=== PATIENT | female | born 1945 | race Caucasian/White ===

== ENCOUNTER → 2020-06-09 14:33 | Outpatient (BNVA) | payer MEDICARE, SELFPAY | PROVIDERS: PCP Internal Medicine Geriatric Medicine; Visit Provider Urology | DX: N39.41 Urge incontinence (principal) | CPT/HCPCS: Q3014 ==

== ENCOUNTER → 2020-06-11 09:31 | Outpatient (BNVA) | payer MEDICARE, SELFPAY | PROVIDERS: PCP Internal Medicine Geriatric Medicine; Visit Provider Internal Medicine | DX: R07.89 Other chest pain (principal); R06.02 Shortness of breath; E11.8 Type 2 diabetes mellitus with unspecified complications; E78.5 Hyperlipidemia, unspecified; I10 Essential (primary) hypertension | CPT/HCPCS: 99212 ==

== ENCOUNTER → 2020-11-02 13:59 | Outpatient (BNVA) | payer MEDICARE, SELFPAY | PROVIDERS: PCP Internal Medicine Geriatric Medicine; Visit Provider Internal Medicine | DX: R07.89 Other chest pain (principal); R06.02 Shortness of breath; E11.8 Type 2 diabetes mellitus with unspecified complications; I10 Essential (primary) hypertension; E78.5 Hyperlipidemia, unspecified | CPT/HCPCS: 93005; 99212 ==

== ENCOUNTER → 2021-01-13 13:44 | Outpatient (BNVA) | payer MEDICARE, SELFPAY | PROVIDERS: PCP Internal Medicine Geriatric Medicine; Referring Provider Internal Medicine Geriatric Medicine; Visit Provider Nurse Practitioner Family | DX: R07.89 Other chest pain (principal); R06.02 Shortness of breath; R00.2 Palpitations; I10 Essential (primary) hypertension; E78.5 Hyperlipidemia, unspecified; E11.9 Type 2 diabetes mellitus without complications; Z79.4 Long term (current) use of insulin; Z79.899 Other long term (current) drug therapy | CPT/HCPCS: 99212 ==

== ENCOUNTER 2021-01-14 08:31 | Outpatient (REF) | payer MEDICARE, SELFPAY ==
--- NOTE | 2021-01-14 08:36 | EMG_ITS ---
Bilateral median and ulnar motor and sensory studies were performed. Bilateral radial sensory studies were performed, and paraspinal muscles were tested with a needle. IMPRESSION: 1. Moderately severe bilateral median neuropathy across carpal tunnel. 2. Mild bilateral ulnar neuropathy across cubital tunnel. MD ERNA Dove/RADU / [id number]
== END 2021-01-14 08:32 | disposition home or self-care (01) ==
LOC: HO.NEURO 08:31
PROVIDERS: PCP Internal Medicine Geriatric Medicine; Visit Provider Internal Medicine Geriatric Medicine
DX: R29.898 Other symptoms and signs involving the musculoskeletal system (principal)
CPT/HCPCS: 95886; 95909; 95911

== ENCOUNTER → 2021-01-29 09:00 | Outpatient (BNVA) | payer MEDICARE, SELFPAY | PROVIDERS: PCP Internal Medicine Geriatric Medicine | DX: N39.41 Urge incontinence (principal) | CPT/HCPCS: 51798; 99212 ==

== ENCOUNTER → 2021-03-04 10:29 | Outpatient (BNVA) | payer MEDICARE, SELFPAY | PROVIDERS: PCP Internal Medicine Geriatric Medicine | DX: N39.41 Urge incontinence (principal); R39.15 Urgency of urination | CPT/HCPCS: 99212 ==

== ENCOUNTER 2021-03-26 13:58 | Outpatient (REF) | payer MEDICARE, SELFPAY ==
[2021-03-26 16:36] LABS: MANUAL DIFF FLAG NO
[2021-03-26 17:46] LABS: Basophils Percent Auto 0.4 % (0-2); Eosinophils Absolute Auto 0.2 X10*3/uL (0.0-0.4); Eosinophils Percent Auto 1.7 % (0-4); Hematocrit 37.7 % (37.0-47.0); Hemoglobin 12.7 g/dl (12.0-16.0); Imm Gran Abs Auto 0.05 X10*3/uL (0.00-0.03); Imm Gran Pct Auto 0.5 % (0.0-0.4); Lymphocytes Absolute Auto 3.1 X10*3/uL (1.2-4.9); Lymphocytes Percent Auto 32.1 % (20-40); Mean Corpuscular HGB Conc 33.7 g/dl (31.0-35.0); Mean Corpuscular Hemoglobin 30.9 pg (27.0-33.0); Mean Corpuscular Volume 91.7 fL (80.0-98.0); Mean Platelet Volume 11.1 fL (9.4-12.3); Monocytes Absolute Auto 0.8 X10*3/uL (0.1-1.2); Monocytes Percent Auto 8.1 % (2-11); Neutrophils Absolute Auto 5.5 x10*3/uL (2.0-8.3); Neutrophils Percent Auto 57.2 % (45-73); Platelet Count 254 X10*3/uL (160-400); Red Blood Count 4.11 X10*6/uL (4.20-5.50); Red Cell Distribution Width 11.7 % (11.0-16.0); White Blood Count 9.6 X10*3/uL (4.8-10.8)
[2021-03-26 18:12] LABS: Alanine Aminotransferase 33 U/L (0-31); Albumin Level 4.4 g/dL (3.5-5.0); Alkaline Phosphatase 77 U/L (39-117); Anion Gap 11 (12-20); Aspartate Amino Transferase 35 U/L (5-31); Bilirubin Total 0.4 mg/dL (0.0-1.0); Blood Urea Nitrogen 23 mg/dL (9-16); Calcium 9.4 mg/dL (8.4-10.2); Carbon Dioxide 30 mmol/L (22-29); Chloride 98 mmol/L (96-108); Estimated Glomerular Filt Rate 46; Glucose Random 210 mg/dL (60-115); Potassium 4.3 mmol/L (3.3-5.1); Sodium 135 mmol/L (135-145); Total Protein 7.3 g/dL (6.5-8.0)
== END 2021-03-26 13:59 | disposition home or self-care (01) ==
LOC: HO.LAB 13:58
PROVIDERS: PCP Internal Medicine Geriatric Medicine; Referring Provider Internal Medicine Geriatric Medicine; Visit Provider Nurse Practitioner
DX: K21.9 Gastro-esophageal reflux disease without esophagitis (principal); R13.10 Dysphagia, unspecified
CPT/HCPCS: 36415; 80053; 85025; 99202

== ENCOUNTER 2021-06-16 08:53 | Outpatient (REF) | payer MEDICARE, SELFPAY ==
--- NOTE | ~2021-06-16 | MM_ITS ---
EXAMINATION: MM SCREENING DIGITAL BREAST TOMOSYNTHESIS, BILATERAL CLINICAL INFORMATION: Screening. Asymptomatic. The lifetime risk of breast cancer based on the Tyrer-Cuzick Model is 4%. COMPARISON: Mammography: 01/31/2018, 01/24/2018 (new baseline). TECHNIQUE: Digital breast tomosynthesis is performed in both the craniocaudal and mediolateral oblique views along with computer-aided detection (CAD). Synthesized 2D images are generated from the tomosynthesis. FINDINGS: There are scattered areas of fibroglandular density (ACR BI-RADS breast composition Category b). There are no significant masses, abnormal calcifications, or other abnormalities. Fibronodular parenchymal pattern is similar to prior study. There is no developing density or interval architectural abnormality. There are diffuse bilateral scattered ductal secretory and punctate round and some round coarse calcifications overall increased in number but without focal suspicious change. The axilla and skin contours are unremarkable. MM/MM tomosynthesis screening BI IMPRESSION: No significant changes from prior exams. ASSESSMENT: BI-RADS 2: Benign RECOMMENDATION: Routine annual mammography screening. This patient's information was entered into a reminder system with a target due date for their next mammogram.
== END 2021-06-16 08:54 | disposition home or self-care (01) ==
LOC: HO.MAMMO 08:53
PROVIDERS: PCP Internal Medicine Geriatric Medicine; Visit Provider Internal Medicine Geriatric Medicine
DX: Z12.31 Encounter for screening mammogram for malignant neoplasm of breast (principal)
CPT/HCPCS: 77063; 77067

== ENCOUNTER 2021-07-07 15:35 | Outpatient (REF) | payer MEDICARE, SELFPAY | END 2021-07-07 15:36 | disposition home or self-care (01) | LOC: HO.XRAY 15:35 | PROVIDERS: Visit Provider Nurse Practitioner | DX: Z13.89 Encounter for screening for other disorder (principal) ==

== ENCOUNTER 2021-07-12 10:22 | Day surgery (SDC) | payer MEDICARE, SELFPAY ==
--- NOTE | 2021-07-09 09:27 | P.CONAN_ITS ---
Documented by User: Stephania Butt NP 07/09/21 09:34 HPI - Anesthesia Eval Consult details Narrative: 76yo F for Upper Endoscopy [facility] Active Problems Active Problems: All Active Problems (Updated 03/26/21 @ 16:12 by RHYS Good) Dysphagia (Acute) Hard of hearing (Acute) Smoker (Acute) Depression with anxiety (Acute) Urinary incontinence (Acute) Hypothyroid (Acute) Peripheral vascular disease (Acute) Lumbar radiculopathy (Acute) GERD (gastroesophageal reflux disease) (Acute) Constipation (Acute) Other and unspecified hyperlipidemia (Acute) Essential hypertension (Acute) Type 2 diabetes mellitus with unspecified complications (Acute) Shortness of breath (Acute) Chest discomfort (Acute) Urgency of micturition (Acute) Urge incontinence (Acute) Past Medical History Medical History Essential hypertension Other and unspecified hyperlipidemia Type 2 diabetes mellitus with unspecified complications Urge incontinence Urgency incontinence Urgency of micturition Family History Family History Father No problems noted. Mother No problems noted. Surgical History Surgical History History of section Social History Social History Patient Tobacco Use Status: Former Tobacco user Tobacco use type: Cigarette Use of substances other than those prescribed or required for medical reasons: No Are you DNR?: No Advance Directives: No Advance Directives Information Provided: Yes Recently lost weight without trying: No Nutrition Risks: No Nutritional Risk Meds Allergies Allergy/AdvReac Type Severity Reaction Status Date / Time No Known Allergies Allergy Verified 03/26/21 14:10 Home Medications Medication Instructions Recorded Confirmed Last Taken Type aspirin 81 mg tablet,delayed 81 mg PO DAILY 06/11/20 01/13/21 Unknown History release atorvastatin 40 mg tablet 40 mg PO DAILY 06/11/20 01/13/21 Unknown History docusate sodium 100 mg capsule 100 mg PO BID 06/11/20 01/13/21 Unknown History enalapril maleate 20 mg tablet 20 mg PO DAILY 06/11/20 01/13/21 Unknown History hydrochlorothiazide 25 mg tablet 25 mg PO DAILY 06/11/20 01/13/21 Unknown History insulin glargine 100 unit/mL unit SUBCUT 06/11/20 01/13/21 Unknown History subcutaneous solution metoprolol succinate 25 mg 25 mg PO DAILY 06/11/20 01/13/21 Unknown History tablet,extended release 24 hr primidone 50 mg tablet 0 mg PO 06/11/20 01/13/21 Unknown History sertraline 100 mg tablet 100 mg PO DAILY 06/11/20 01/13/21 Unknown History trazodone 150 mg tablet 150 mg PO BEDTIME PRN 06/11/20 01/13/21 Unknown History doxepin 10 mg capsule 10 mg PO DAILY 01/13/21 01/13/21 Unknown History dulaglutide 3 mg/0.5 mL mg SUBCUT 01/13/21 01/13/21 Unknown History subcutaneous pen injector (Trulicity) nabumetone 500 mg tablet 500 mg PO BID 01/13/21 01/13/21 Unknown History alcohol swabs (Alcohol Prep Pads) pad TOPICAL BID 01/29/21 Unknown History azelastine 0.05 % eye drops 1 drp OPHTHALMIC (EYE) ml 01/29/21 Unknown History blood sugar diagnostic (FreeStyle #10 ea 01/29/21 Unknown History Lite Strips) clotrimazole 1 % topical cream appl TOPICAL 01/29/21 Unknown History insulin aspart U-100 100 unit/mL SUBCUT 01/29/21 Unknown History subcutaneous solution (Novolog U-100 Insulin aspart) insulin syringe-needle U-100 1 mL #10 ea 01/29/21 Unknown History 31 gauge x 5/16 Exam Exam Date and Time: July 09, [id number] Pertinent Lab Results Pertinent Lab Results: Laboratory Tests 03/26/21 03/26/21 16:33 16:33 WBC 9.6 Hgb 12.7 Hct 37.7 Plt Count 254 Sodium 135 Potassium 4.3 Chloride 98 Carbon Dioxide 30 H BUN 23 H Creatinine 1.14 Narrative Narrative: Per 01/2021 cardiac visit: Nuclear stress test 12/02/19 shows normal myocardial perfusion imaging. Echo done 12/02/19 shows EF 65-70%, mild diastolic dysfunction. CTA of coronaries done on 01/08/21 shows Normal LM, RCA, LCx, her LAD does show tiny calcified plaque with no visable stenosis. Also incidental finding of noncalcific nodule in LLL of lung - will fax to her PCP for further eval if warranted. On exam she has no clinical signs of CHF. Spent time going over all the results with her. No clear cardiac findings for her symptoms. Recommend eval for noncardiac causes. Assessment and Plan Assessment Anesthesia Assessment: Chart Reviewed Documented by User: Estefany Sosa MD 07/12/21 11:34 [facility] Active Problems Active Problems: All Active Problems (Updated 03/26/21 @ 16:12 by RHYS Good) Dysphagia (Acute) Hard of hearing (Acute) Smoker (Acute) Depression with anxiety (Acute) Urinary incontinence (Acute) Hypothyroid (Acute) Peripheral vascular disease (Acute) Lumbar radiculopathy (Acute) GERD (gastroesophageal reflux disease) (Acute) Constipation (Acute) Other and unspecified hyperlipidemia (Acute) Essential hypertension (Acute) Type 2 diabetes mellitus with unspecified complications (Acute) Shortness of breath (Acute) Chest discomfort (Acute). Cardiac w/u negative for cardiac cause Urgency of micturition (Acute) Urge incontinence (Acute) No TIA/ CVA Past Medical History Medical History Essential hypertension Other and unspecified hyperlipidemia Type 2 diabetes mellitus with unspecified complications Urge incontinence Urgency incontinence Urgency of micturition Family History Family History Father No problems noted. Mother No problems noted. Family history of problems with anesthesia: No Surgical History Surgical History History of section History of Problems with Anesthesia: No Social History Social History Patient Tobacco Use Status: Former Tobacco user Tobacco use type: Cigarette Use of substances other than those prescribed or required for medical reasons: No Are you DNR?: No Advance Directives: No Advance Directives Information Provided: Yes Recently lost weight without trying: No Nutrition Risks: No Nutritional Risk Meds Allergies Allergy/AdvReac Type Severity Reaction Status Date / Time No Known Allergies Allergy Verified 03/26/21 14:10 Home Medications Medication Instructions Recorded Confirmed Last Taken Type aspirin 81 mg tablet,delayed 81 mg PO DAILY 06/11/20 01/13/21 Unknown History release atorvastatin 40 mg tablet 40 mg PO DAILY 06/11/20 01/13/21 Unknown History docusate sodium 100 mg capsule 100 mg PO BID 06/11/20 01/13/21 Unknown History enalapril maleate 20 mg tablet 20 mg PO DAILY 06/11/20 01/13/21 Unknown History hydrochlorothiazide 25 mg tablet 25 mg PO DAILY 06/11/20 01/13/21 Unknown History insulin glargine 100 unit/mL unit SUBCUT 06/11/20 01/13/21 Unknown History subcutaneous solution metoprolol succinate 25 mg 25 mg PO DAILY 06/11/20 01/13/21 Unknown History tablet,extended release 24 hr primidone 50 mg tablet 0 mg PO 06/11/20 01/13/21 Unknown History sertraline 100 mg tablet 100 mg PO DAILY 06/11/20 01/13/21 Unknown History trazodone 150 mg tablet 150 mg PO BEDTIME PRN 06/11/20 01/13/21 Unknown History doxepin 10 mg capsule 10 mg PO DAILY 01/13/21 01/13/21 Unknown History dulaglutide 3 mg/0.5 mL mg SUBCUT 01/13/21 01/13/21 Unknown History subcutaneous pen injector (Trulicity) nabumetone 500 mg tablet 500 mg PO BID 01/13/21 01/13/21 Unknown History alcohol swabs (Alcohol Prep Pads) pad TOPICAL BID 01/29/21 Unknown History azelastine 0.05 % eye drops 1 drp OPHTHALMIC (EYE) ml 01/29/21 Unknown History blood sugar diagnostic (FreeStyle #10 ea 01/29/21 Unknown History Lite Strips) clotrimazole 1 % topical cream appl TOPICAL 01/29/21 Unknown History insulin aspart U-100 100 unit/mL SUBCUT 01/29/21 Unknown History subcutaneous solution (Novolog U-100 Insulin aspart) insulin syringe-needle U-100 1 mL #10 ea 01/29/21 Unknown History 31 gauge x 5/16 Exam Height,Weight and Vital Signs: Height 5 ft 2 in Weight 66.224 kg Vital Signs Temp Pulse Resp BP Pulse Ox 07/12/21 11:22 98.0 F 62 16 122/69 95 Pertinent Lab Results Pertinent Lab Results: Laboratory Tests 03/26/21 03/26/21 16:33 16:33 WBC 9.6 Hgb 12.7 Hct 37.7 Plt Count 254 Sodium 135 Potassium 4.3 Chloride 98 Carbon Dioxide 30 H BUN 23 H Creatinine 1.14 Lab Results 07/12/21 Range/Units 11:25 POC Glucose 168 H (60-115) mg/dL Airway Mallampati Class: II TM Dist: >3cm Neck ROM: Limited (Some limitation of side to side movement) Denture: Upper Partial: Lower Heart: RRR Lungs: CTAB Assessment and Plan Assessment Anesthesia Assessment: Anesthesia Plan Discussed Final Anesthetic Review Family History of Problems with Anesthesia: No History of Problems with Anesthesia: No NPO: Yes ASA Class: III Final Preanesthetic Review: No Changes in Pt Med Stat, Meds/Allgs Chart Reviewed, Consent Obtained/Reviewed and Anes Risks/Benef Reviewed Patient Risk: Intermediate Procedure Risk: Low Assessment/Block/Sedation in SS: Assess/Block/Sedation-SS Anesthetic Plan Anesthetic Plan: MAC: Disposition: Standard PACU
--- NOTE | 2021-07-12 10:44 | MHC.SHP ---
Pre-Procedural Eval Section A Date of Service: 07/12/21 Section B Chief Complaint: Dysphagia Details of Present Illness: Dysphagia Relevant Family History (Specify if Yes): No Relevant Social History: None Present Medications: see Short Stay Collaborative assessment Medical History: Significant History (Essential hypertension Other and unspecified hyperlipidemia Type 2 diabetes mellitus with unspecified complications Urge incontinence Urgency incontinence Urgency of micturition) History of Previous Operations: Relevant previous surgery/procedure and date(s) (History of ) Allergies: Allergies Allergy/AdvReac Type Severity Reaction Status Date / Time No Known Allergies Allergy Verified 03/26/21 14:10 Review of Systems Sugical H&P ROS: Negative: Constitution, Cardiovascular and Respiratory and Yes, Specify: Gastrointestinal (dysphagia) Exam Surgical H&P Exam: Normal: Heart, Normal: Lungs, Normal: Extremities and Normal: Abdomen Plan Diagnosis/Plan: Unchanged I have reviewed the history and physical and performed a pertinent physical examination on my patient. No changes have occurred unless specified.
[2021-07-12 11:01] VITALS: BMI 26.6
[2021-07-12 11:22] VITALS: BP 122/69; PULSE 62; RESP 16; TEMP 36.7; O2SAT 95
[2021-07-12 11:28] LABS: Glucose, Whole Blood 168 mg/dL (60-115)
[2021-07-12] MEDS: Lactated Ringers 1,000 ML 100 ML IVCONT (11:29)
--- NOTE | 2021-07-12 11:29 | P.OP_ITS ---
Operative Note Operative Note Date of Service: 07/12/21 Narrative: Pre-op diagnosis: dysphagia Post-op diagnosis:?other (Gastritis, hiatal hernia, retained food in the stomach) Procedure: FLEXIBLE TRANSORAL UPPER GASTROINTESTINAL ENDOSCOPY WITH BIOPSIES Consent:?Indications for the procedure and potential complications of bleeding, perforation, reaction to medications and missed diagnosis were discussed with the patient and informed consent was obtained. Instrument:?Olympus GIF H 190 mid size upper endoscope Monitoring: Vital signs and clinical assessment, continuous EKG monitoring, Pulse oximetry, Carbon Dioxide monitoring and blood pressure monitoring were done throughout the procedure. Procedure:?The patient was placed in the left lateral decubitis position and pre-procedure medications were administered and a bite block was placed. The endoscope was inserted into the mouth and advanced under direct vision to the third part of duodenum. A careful inspection was made as the upper endoscope was withdrawn including a retroflexed examination of the proximal stomach; Findings and interventions are described below. Findings: Larynx:? Normal Esophagus: tortuous esophagus with increased tertiary contractions without obvious stricture or ring.? GE junction at 30 cms, small hiatal hernia 30 to 32 cms.? No esophagitis or York's. Esophageal dilation was not performed due to presence of retained food in the stomach increasing risk of aspiration. Stomach: Large amount of retained food in the stomach - suggestive of gastroparesis. Moderate gastric antral erythema. Biopsies were obtained. Grade 2 flap valve on retroflexed examination of the cardia. Duodenum: Normal bulb and descending duodenum Intervention: Biopsies as noted above Impression and Post Procedure Diagnosis: Endoscopy Findings: ESOPHAGUS: tortuous esophagus with increased tertiary contractions without obvious stricture or ring.? GE junction at 30 cms, small hiatal hernia 30 to 32 cms.? No esophagitis or York's. STOMACH:? Large amount of retained food in the stomach - suggestive of gastroparesis. Moderate gastric antral erythema. Biopsies were obtained. Plan: Await pathology results Patient has an appointment on 08/06/21 in the GI Clinic with? Lian Anderson NP . Further evaluation with the gastric emptying study - order placed. Above findings were reviewed with the patient and Hiatal hernia and gastroparesis handouts were given in the discharge area Surgeon: Nigel Maddox MD Anesthesia:?MAC (Dr Palomo) Was an [employer] used for this Procedure?:?Yes [employer]cre[employer]:?Kimberly Hart Estimated blood loss (mL):?0 Pathology:?other ( A. GASTRIC ANTRUM) Condition:?stable Disposition:?PACU
[2021-07-12 12:02] VITALS: BP 124/73; PULSE 86; RESP 16; TEMP 37.7; O2SAT 98
[2021-07-12 12:13] VITALS: BP 133/68; PULSE 65; RESP 18; TEMP 37.6; O2SAT 94
== END 2021-07-12 13:53 | disposition home or self-care (01) ==
PROVIDERS: Visit Provider Internal Medicine Gastroenterology
PROC: 0DJ08ZZ Inspection of Upper Intestinal Tract, Via Natural or Artificial Opening Endoscopic (ICD-10-PCS; CPT 43235; principal; 2021-07-12 11:40)
DX: R13.10 Dysphagia, unspecified (principal); K22.89 Other specified disease of esophagus; K29.50 Unspecified chronic gastritis without bleeding; K44.9 Diaphragmatic hernia without obstruction or gangrene; T18.2XXA Foreign body in stomach, initial encounter; X58.XXXA Exposure to other specified factors, initial encounter; Y93.89 Activity, other specified; Y92.9 Unspecified place or not applicable; Y99.8 Other external cause status; I10 Essential (primary) hypertension; E78.5 Hyperlipidemia, unspecified; E11.9 Type 2 diabetes mellitus without complications; N39.41 Urge incontinence; Z79.4 Long term (current) use of insulin; Z79.82 Long term (current) use of aspirin; Z87.891 Personal history of nicotine dependence; Z79.899 Other long term (current) drug therapy
CPT/HCPCS: 43239; 82947; 88305; 88342

== ENCOUNTER → 2021-09-13 07:03 | Outpatient (REF) | payer OTHER, SELFPAY ==
--- NOTE | ~2021-09-13 | NM_ITS ---
EXAMINATION: RADIONUCLIDE SOLID FOOD GASTRIC EMPTYING 4-HOUR STUDY CLINICAL INFORMATION: Gastroparesis. COMPARISON: No previous gastric emptying study is available for comparison. TECHNIQUE: A standard meal consisting of 4 oz of Egg Beaters brand equivalent tagged with 1 mCi Tc-99m Sulfur Colloid, 8 oz water and 2 slices of toast with jelly was administered orally to the patient. Images were obtained using a dual head gamma camera in the anterior and posterior projections over of the stomach immediately post ingestion and at hourly intervals up to 4 hours post ingestion. The anterior and posterior counts at each time interval were averaged using the geometric mean and expressed as percentage of the immediate post ingestion counts. FINDINGS: There is good visualization of activity in the stomach immediately post ingestion. As the study progresses, there is good clearance of activity from the stomach and visualization of progressively increasing small bowel activity. By the end of the study, there is almost no retention noted in the stomach. Retention in the stomach at each time interval was: 1 hour 75% (normal 37%-90%) 2 hours 52% (normal 30%-60%) 3 hours 19% 4 hours 4% (normal 0%-10%) NM/NM gastric emptying study IMPRESSION: Normal 4-hour solid food gastric emptying study.
== END ==
LOC: HO.NUCMED 07:03
PROVIDERS: PCP Internal Medicine Geriatric Medicine; Visit Provider Internal Medicine Gastroenterology
DX: K31.84 Gastroparesis (principal)
CPT/HCPCS: 78264; A9541

== ENCOUNTER 2021-10-18 14:29 | Emergency (ER) | payer OTHER, SELFPAY ==
--- NOTE | ~2021-10-18 | XR_ITS ---
Examination: XR knee LT 3V, XR knee RT 3V, XR hand RT min 3V Indication: fall, pain Comparison: No pertinent prior studies are currently available for comparison. Technique: 4 views of each knee and 3 views of the right hand obtained. Findings: Right knee: Small joint effusion. Mild tricompartmental degenerative changes more so in the medial compartment where there is more significant joint space loss. No acute fracture or dislocation. No bony destructive lesions. No periosteal reaction. Mild prepatellar soft tissue swelling. Left knee: Small joint effusion. Tricompartmental degenerative changes seen more so in the medial compartment where there is more significant loss of joint space and osteophyte formation. Mild prepatellar soft tissue swelling. Right hand: Bones are normal anatomic alignment without acute fracture or dislocation. Soft tissue swelling is seen more so in the region of the second digit and there may be some subtle clubbing of the distal digits. I do not appreciate any acute underlying bony abnormality. No radiopaque foreign body XR/XR hand RT min 3V Impression: Mild prepatellar soft tissue swelling bilaterally could represent hematomas or less likely prepatellar bursitis. Degenerative changes in the bony structures without acute fracture. No acute bony abnormality of the hand. There is a suggestion of some subtle clubbing of the distal digits but no underlying acute process seen otherwise.
--- NOTE | ~2021-10-18 | XR_ITS ---
Examination: XR knee LT 3V, XR knee RT 3V, XR hand RT min 3V Indication: fall, pain Comparison: No pertinent prior studies are currently available for comparison. Technique: 4 views of each knee and 3 views of the right hand obtained. Findings: Right knee: Small joint effusion. Mild tricompartmental degenerative changes more so in the medial compartment where there is more significant joint space loss. No acute fracture or dislocation. No bony destructive lesions. No periosteal reaction. Mild prepatellar soft tissue swelling. Left knee: Small joint effusion. Tricompartmental degenerative changes seen more so in the medial compartment where there is more significant loss of joint space and osteophyte formation. Mild prepatellar soft tissue swelling. Right hand: Bones are normal anatomic alignment without acute fracture or dislocation. Soft tissue swelling is seen more so in the region of the second digit and there may be some subtle clubbing of the distal digits. I do not appreciate any acute underlying bony abnormality. No radiopaque foreign body XR/XR knee LT 3V Impression: Mild prepatellar soft tissue swelling bilaterally could represent hematomas or less likely prepatellar bursitis. Degenerative changes in the bony structures without acute fracture. No acute bony abnormality of the hand. There is a suggestion of some subtle clubbing of the distal digits but no underlying acute process seen otherwise.
--- NOTE | ~2021-10-18 | XR_ITS ---
Examination: XR knee LT 3V, XR knee RT 3V, XR hand RT min 3V Indication: fall, pain Comparison: No pertinent prior studies are currently available for comparison. Technique: 4 views of each knee and 3 views of the right hand obtained. Findings: Right knee: Small joint effusion. Mild tricompartmental degenerative changes more so in the medial compartment where there is more significant joint space loss. No acute fracture or dislocation. No bony destructive lesions. No periosteal reaction. Mild prepatellar soft tissue swelling. Left knee: Small joint effusion. Tricompartmental degenerative changes seen more so in the medial compartment where there is more significant loss of joint space and osteophyte formation. Mild prepatellar soft tissue swelling. Right hand: Bones are normal anatomic alignment without acute fracture or dislocation. Soft tissue swelling is seen more so in the region of the second digit and there may be some subtle clubbing of the distal digits. I do not appreciate any acute underlying bony abnormality. No radiopaque foreign body XR/XR knee RT 3V Impression: Mild prepatellar soft tissue swelling bilaterally could represent hematomas or less likely prepatellar bursitis. Degenerative changes in the bony structures without acute fracture. No acute bony abnormality of the hand. There is a suggestion of some subtle clubbing of the distal digits but no underlying acute process seen otherwise.
--- NOTE | ~2021-10-18 | CT_ITS ---
EXAMINATION: CT BRAIN, CT CERVICAL SPINE AND CT FACIAL BONES. CLINICAL INFORMATION: Fall, head strike. COMPARISON: None TECHNIQUE: 5 mm thin axial and reformatted 2 mm thin sagittal and coronal images of brain were obtained. Subsequently axial 3 mm thin and reformatted 1.5 mm thin images of facial bones were obtained. Lastly axial 3 mm thin and reformatted 2 mm thin sagittal and coronal images of cervical spine were obtained. DLP [id number]. FINDINGS: Brain: There is no acute intra-axial, extra-axial bleed, masses or midline shift. There is no acute infarction in evolution. The lateral ventricles are symmetrical but enlarged. There is diffuse periventricular hypodensity in both cerebral hemispheres without mass effect. Bone windows reveal no calvarial abnormality. There is no scalp soft tissue abnormality seen. Bilateral paranasal sinuses and mastoid air cells are well-aerated. Cervical spine: There is normal cervical lordosis. The vertebral and heights and alignment is normal. There is mild loss of C3-C4, C4-C5 disc heights with moderate ventral spondylosis from C3-C4 through C6-C7 disc levels. The craniovertebral junction and the C1-C2 alignment is normal. There is moderate left C7-T1 facet joint arthropathy. There is no visible acute fracture, dislocation or subluxation seen. The prevertebral and paravertebral soft tissues are normal. The airway is widely patent. Visualized thyroid, submandibular and parotid glands are normal. The lung apices are clear. Facial bones: There is normal aeration of sinuses with patent ostiomeatal complex and frontoethmoidal recesses. The bony sinus kapadia are intact. The lamina papyracea and cribriform plate is intact as well. There is mild deviation of nasal septum to the left with tommie bullosa of bilateral middle turbinates. The nasopharyngeal and nasal cavity airway appears patent. The bony orbits, optic globe, optic nerve and the periorbital soft tissues are normal. The nasal bone is intact. No soft tissues swelling seen. Bilateral TM joints are symmetrical and normal. No acute fracture seen involving the mandible. Patient is almost completely edentulous. CT/CT cervical spine wo con IMPRESSION: No acute intracranial process seen. Mild cerebral volume loss with chronic small vessel ischemic changes. There is no visible acute fracture, dislocation or subluxation in cervical spine. There are degenerative disc changes in left C7-T1 facet joint hypertrophy/arthropathy. There is no acute fracture involving maxillofacial or mandibular bones. The nasal bone is intact.
[2021-10-18 14:43] VITALS: BP 142/77; PULSE 77; RESP 18; TEMP 36.6; O2SAT 99; BMI 25.6
--- NOTE | 2021-10-18 17:07 | ED_ITS ---
HPI - Fall General Chief Complaint: Fall Stated Complaint: fall swollen knee, inj elbow Time Seen by Provider: 10/18/21 16:03 Source: patient and family (Daughter) Mode of arrival: ambulatory Limitations: language barrier (Slovenian-speaking [employer] forces medical sergeant utilized) History of Present Illness HPI Narrative: Patient presents emergency department for evaluation after a fall earlier this morning. She reports a mechanical fall she was bending forward to brick picker a package on her porch when she fell forward landing on her hands and knees and striking the left side of her face onto the door jam. The delivery table operator helped her to a standing position and she was able to get back into the home. She contacted her daughter and advised her what had happened and therefore she was brought to the emergency department. Patient currently reporting pain to the bilateral knees, has an abrasion to the right knee, pain to the right 2nd through 4th fingers with bruising and swelling, and abrasion to the right elbow, and left facial pain. Patient denies loss of consciousness. Denies headache, dizziness, lightheadedness, neck pain, neck stiffness, chest pain, palpitations, shortness of breath, difficulty breathing, nausea, vomiting, abdominal pain, numbness or tingling of the extremities. Related Data Home Medications Medication Instructions Recorded Confirmed aspirin 81 mg tablet,delayed 81 mg PO DAILY 06/11/20 01/13/21 release atorvastatin 40 mg tablet 40 mg PO DAILY 06/11/20 01/13/21 docusate sodium 100 mg capsule 100 mg PO BID 06/11/20 01/13/21 enalapril maleate 20 mg tablet 20 mg PO DAILY 06/11/20 01/13/21 hydrochlorothiazide 25 mg tablet 25 mg PO DAILY 06/11/20 01/13/21 insulin glargine 100 unit/mL unit SUBCUT 06/11/20 01/13/21 subcutaneous solution metoprolol succinate 25 mg 25 mg PO DAILY 06/11/20 01/13/21 tablet,extended release 24 hr primidone 50 mg tablet 0 mg PO 06/11/20 01/13/21 sertraline 100 mg tablet 100 mg PO DAILY 06/11/20 01/13/21 trazodone 150 mg tablet 150 mg PO BEDTIME PRN 06/11/20 01/13/21 doxepin 10 mg capsule 10 mg PO DAILY 01/13/21 01/13/21 dulaglutide 3 mg/0.5 mL mg SUBCUT 01/13/21 01/13/21 subcutaneous pen injector (Trulicity) nabumetone 500 mg tablet 500 mg PO BID 01/13/21 01/13/21 alcohol swabs (Alcohol Prep Pads) pad TOPICAL BID 01/29/21 azelastine 0.05 % eye drops 1 drp OPHTHALMIC (EYE) ml 01/29/21 blood sugar diagnostic (FreeStyle #10 ea 01/29/21 Lite Strips) clotrimazole 1 % topical cream appl TOPICAL 01/29/21 insulin aspart U-100 100 unit/mL SUBCUT 01/29/21 subcutaneous solution (Novolog U-100 Insulin aspart) insulin syringe-needle U-100 1 mL #10 ea 01/29/21 31 gauge x /16 Previous Rx's Medication Instructions Recorded mirabegron 25 mg tablet,extended 25 mg PO DAILY 30 Days #90 tab 08/20/21 release 24 hr (Myrbetriq) pantoprazole 40 mg tablet,delayed 40 mg PO DAILY 30 Days #30 tab 08/20/21 release (Protonix) Allergies Allergy/AdvReac Type Severity Reaction Status Date / Time No Known Allergies Allergy Verified 03/26/21 14:10 Review of Systems Review of Systems: Constitutional: No No fever. No chills. No weakness. No fatigue. Eye: No swelling. No redness. Positive pain to left orbit/ face. ENT: No sore throat. No nasal congestion Skin: No rash. No itching. Cardiovascular: No chest pain. No chest pressure. No palpitations. No pedal edema. Respiratory: No shortness of breath. No cough. No sputum production. Gastrointestinal: No anorexia. No nausea. No vomiting. No diarrhea. No abdominal pain. No blood in stool. Genitourinary: No burning micturition. No urinary frequency. No incontinence. Neurologic: No headache. No dizziness. No pre-syncope/ syncope. No unilateral weakness. No ataxia. No numbness. No tingling. No change in bowel or bladder control. Musculoskeletal: Positive bilateral knee pain. Positive right hand pain. No muscle pain. No back pain. No stiffness. Hematologic: No bleeding. No bruising. Yes all other systems are reviewed and are negative PMFSH Past Medical History Attestation statement: The following information was validated with the patient. Source: old records reviewed Medical History Essential hypertension Other and unspecified hyperlipidemia Type 2 diabetes mellitus with unspecified complications Urge incontinence Urgency incontinence Urgency of micturition Surgical History History of section Family History Family History Father No problems noted. Mother No problems noted. Social History Social History Patient Tobacco Use Status: Former Tobacco user Tobacco use type: Cigarette Advance Directives: No Advance Directives Information Provided: Yes Physical Exam Vital Signs: Vital Signs: Last Vital Signs Temp 97.9 F 10/18/21 14:43 Pulse 62 10/18/21 17:26 Resp 17 10/18/21 17:26 BP 170/62 H 10/18/21 17:26 Pulse Ox 97 10/18/21 17:26 BMI result Body Mass Index 25.6 Vital signs have been reviewed as normal and appeared to be correct. Hy pertension.? Heart rate normal.? Respiration rate normal. Temperature normal.? Oxygen saturation normal. Appearance: Alert.?Oriented to person, place and time. No acute distress.?Normal affect. Head: Normocephalic, atraumatic. Point tenderness over the left lower orbit/zygomatic bone, mild swelling, no erythema. Eyes: Pupils equal, round and reactive to light.? EOMI. No nystagmus. ENT: Pharynx normal.?? Neck: Normal inspection.? Neck supple.? No palpable midline cervical spine tenderness, step-offs, deformities CVS: Heart sounds normal. Normal heart rate and rhythm.? Pulses normal.?? Respiratory: No respiratory distress.? Lung sounds clear to auscultation bilaterally?? Abdomen: Soft and non-tender. Normoactive bowel sounds. No pulsatile mass.?? Skin: Skin warm and dry.? Normal skin color.? Normal skin turgor.?? Extremities: No lower extremity edema.? No calf ttp.?right knee with full AROM, no instability or obvious deformity. Abrasion to the right anterior knee, no active bleeding, no surrounding erythema or swelling. Left knee with bruising and swelling inferiorly and laterally, decreased AROM due to pain, anterior drawer test negative, posterior drawer test negative. Palpable 2+ DP/PT pulse bilaterally. Right hand with digits 2-for bruising and swelling, decreased flexion. Neuro: Moves all extremities spontaneously. Sensation intact bilaterally. CN II- XII intact. No focal neuro deficits. Ambulates with antalgic gait. Course Course Course Narrative: Patient is a 76-year-old female with a past medical history of hypertension, type 2 diabetes presenting to the emergency department after mechanical fall. No neurological deficits on exam. Patient is overall well-appearing, hemodynamically stable, has mild hypertension. Given presenting complaints, will obtain XR bilateral knees, right hand to evaluate for fracture/ dislocation. given age and head injury, will obtain CT of the head, facial bones, and cervical spine to exclude ICH/SAH, subluxation, or fracture. Abrasion to right knee and right elbow cleansed apply bacitracin and covered with a clean dry dressing. Patient received Tylenol 975 mg p.o. for pain at this time. Disposition will be pending results. Reevaluation(s) Reevaluation #1: X-ray of the right hand reveals no acute underlying process. X-ray of the bilateral knees reveal prepatellar soft tissue swelling which may represent hematoma, less likely prepatellar bursitis, and degenerative changes but no acute fracture. Francois bandage applied to left knee. Time: 17:43 Reevaluation #2: CT of the head reveals no acute intracranial process. CT of the cervical spine with no acute fracture dislocation or subluxation, degenerative disc changes are noted. CT of the facial bones with no acute fracture. Discussed all findings with patient, advised for discharge home, use of Tylenol as needed for pain, application of ice to face and right hand, Francois bandage for compression to left knee, elevation of the legs. Discussed reasons to return back to the emergency department. Advised follow-up with primary care provider within 1 week as needed for persistent symptoms. All questions were answered, and patient was discharged home in stable condition with daughter. Time: 18:48 MDM - Fall Medical Records Attestation: I reviewed the patient's medical records. Imaging Data knee XR: Radiologist's impression: XR/XR hand RT min 3V Impression: Mild prepatellar soft tissue swelling bilaterally could represent hematomas or less likely prepatellar bursitis. Degenerative changes in the bony structures without acute fracture. hand XR: Radiologist's impression: XR/XR hand RT min 3V Impression: No acute bony abnormality of the hand. There is a suggestion of some subtle clubbing of the distal digits but no underlying acute process seen otherwise. CT scan - head: Radiologist's impression: CT/CT head/brain wo con IMPRESSION: No acute intracranial process seen. ? Mild cerebral volume loss with chronic small vessel ischemic changes. ? There is no visible acute fracture, dislocation or subluxation in cervical spine. There are degenerative disc changes in left C7-T1 facet joint hypertrophy/arthropathy. ? There is no acute fracture involving maxillofacial or mandibular bones. The nasal bone is intact. Discharge Plan Discharge Clinical Impression: Fall, Knee sprain, bilateral Patient Disposition: Home, Self-Care Instructions: Knee Sprain (ED), Fall Prevention for Older Adults (ED), R.I.C.E. Treatment (ED) Additional Instructions: The CT of your head/face and neck were normal. The x-ray of your right hand was normal. The x-ray of both knees were also normal. Please use ice to these areas, use Francois bandage for compression to the left knee common be sure to rest over the next few days. Tylenol may be used as needed for pain. Please contact your primary care provider to schedule follow-up visit within 1 week for persistent pain. You may return to the emergency department any new or worsening symptoms or concerns. La tomograf?a computarizada de neil mag/aurea y jamie fueron normales. La radiograf?a de neil mano derecha fue normal. La radiograf?a de ambas rodillas tambi?n era normal. Use hielo en estas ?reas, use un vendaje Francois para la compresi?n en la rodilla izquierda y aseg?rese de descansar ricardo los pr?ximos d?as. Tylenol se puede usar seg?n sea necesario para el dolor. Comun?quese con neil proveedor de atenci?n primaria para programar dion visita de seguimiento dentro de 1 semana por dolor persistente. Puede regresar al departamento de emergencias si presenta s?ntomas o inquietudes nuevos o que empeoran. Prescriptions: No Action Myrbetriq 25 mg tablet extended release 24 hr 25 mg PO DAILY 30 Days Qty: 90 1RF pantoprazole [Protonix] 40 mg tablet,delayed release (DR/EC) 40 mg PO DAILY 30 Days Qty: 30 3RF Trulicity 3 mg/0.5 mL pen injector subcut 0RF nabumetone 500 mg tablet 500 mg PO BID 0RF docusate sodium 100 mg capsule 100 mg PO BID 0RF sertraline 100 mg tablet 100 mg PO DAILY 0RF insulin glargine 100 unit/mL solution subcut 0RF primidone 50 mg tablet 0 mg PO 0RF metoprolol succinate 25 mg tablet extended release 24 hr 25 mg PO DAILY 0RF aspirin 81 mg tablet,delayed release (DR/EC) 81 mg PO DAILY 0RF atorvastatin 40 mg tablet 40 mg PO DAILY 0RF trazodone 150 mg tablet 150 mg PO BEDTIME PRN0RF enalapril maleate 20 mg tablet 20 mg PO DAILY 0RF hydrochlorothiazide 25 mg tablet 25 mg PO DAILY 0RF doxepin 10 mg capsule 10 mg PO DAILY 0RF azelastine 0.05 % drops 1 drp ophthalmic (eye) 0RF alcohol swabs [Alcohol Prep Pads] Pads, Medicated topical BID 0RF (DME) insulin syringe-needle U-100 1 mL 31 gauge x 5/16 syringe See Rx Instructions syringe subcut QID Qty: 10 0RF Rx Instructions: As directed insulin aspart U-100 [Novolog U-100 Insulin aspart] 100 unit/mL solution subcut 0RF (DME) FreeStyle Lite Strips Strip See Rx Instructions ea Not Applicable .MEDSUPPLY Qty: 10 0RF Rx Instructions: As directed clotrimazole 1 % cream topical 0RF Interventions: ED Discharge Assessment Last Done: 10/18/21 19:02 Discharge Date/Time: 10/18/21 19:08 Print Language: Slovenian
[2021-10-18] MEDS: Acetaminophen 325 MG TABLET 975 MG PO (17:21)
[2021-10-18 17:26] VITALS: BP 170/62; PULSE 62; RESP 17; O2SAT 97
== END 2021-10-18 19:08 | disposition home or self-care (01) ==
PROVIDERS: Emergency Provider Emergency Medicine; PCP Internal Medicine Geriatric Medicine
DX: S83.92XA Sprain of unspecified site of left knee, initial encounter (principal); S83.91XA Sprain of unspecified site of right knee, initial encounter; S80.211A Abrasion, right knee, initial encounter; S50.311A Abrasion of right elbow, initial encounter; S60.021A Contusion of right index finger without damage to nail, initial encounter; S60.031A Contusion of right middle finger without damage to nail, initial encounter; S60.041A Contusion of right ring finger without damage to nail, initial encounter; S60.051A Contusion of right little finger without damage to nail, initial encounter; W10.8XXA Fall (on) (from) other stairs and steps, initial encounter; I10 Essential (primary) hypertension; E11.9 Type 2 diabetes mellitus without complications; E78.5 Hyperlipidemia, unspecified; Z79.82 Long term (current) use of aspirin; Z79.02 Long term (current) use of antithrombotics/antiplatelets; Z79.4 Long term (current) use of insulin; Y93.89 Activity, other specified; Y92.018 Other place in single-family (private) house as the place of occurrence of the external cause; Y99.9 Unspecified external cause status
CPT/HCPCS: 70450; 70486; 72125; 73130; 73562; 99284

== ENCOUNTER 2021-10-29 10:25 | Outpatient (REF) | payer OTHER, SELFPAY ==
--- NOTE | ~2021-10-29 | FL_ITS ---
EXAMINATION: MODIFIED BARIUM SWALLOW CLINICAL INFORMATION: Dysphagia. COMPARISON: None TECHNIQUE: Routine modified barium swallow was performed in lateral fluoroscopy mode in presence of speech therapist. FINDINGS: Following oral administration of thick barium, barium puree, pudding, chicken coated with barium and barium cookie there is normal oral mastication and propagation of bolus from the oral cavity through the pharynx into the esophagus without any evidence of obstruction, narrowing or stricture. No laryngeal penetration or aspiration seen. The valleculae and piriform sinuses are normal. Incidental finding of mild degenerative disc changes C3-C4, C4-C5 and C5-C6 disc levels. FLUOROSCOPY TIME: 2.3 minutes. DOSE AREA PRODUCT: 1.783 uGy-m2 (microgray-meter squared) FL/FL barium swallow modified IMPRESSION: Unremarkable modified barium swallow exam. Correlate with speech therapy results.
--- NOTE | 2021-10-29 13:39 | MHC.SL.IMP ---
Date of Plan of Treatment: 10/29/21 Onset of Symptoms/Illness: 01/29/21 Date Treatment Started: 10/29/21 Primary Speech & Language Diagnosis: R13.12 Oropharyngeal Phase Dysphagia Reason for Today's Visit: 26240 Modified Barium Swallow Study Pre-evaluation Dietary Consistencies: Regular Pre-evaluation Liquid Consistency: Thin Pre-evaluation Medication Administration: Whole with Liquid Medical History: Modified Barium Swallow Study Fluoroscopic Evaluation of Swallowing Function CPT Code 58578 Evaluation Year: 2021 Reason for Study: Patient reports trouble swallowing. Referring Physician: Lian Anderson NP Evaluating Clinician: Kirti Shahid MA, CCC-RADIO MECH[employer]IC APPRENTICE Study Number: 1 Patient Name: Veda Tobias Status: Outpatient, Ambulatory/Assisted Age: 76 Gender: Female MEDICAL HISTORY: Year of Onset or Diagnosis: 2021 Comorbidities: Hypertension Hard of hearing Smoker Anxiety/depression GERD Constipation Osteoarthritis of the knees Hypothyroid Urinary incontinence Peripheral vascular disease Chronic low back pain Lumbar radiculopathy Current (pre-evaluation) Intake/Diet: Route: PO Diet Grade: Regular Pre-Study Functional Oral Intake Scale (FOIS): 7- Total oral intake with no restrictions Pain: None reported at time of study SUBJECTIVE: Patient is a 76 year old female referred for a modified barium swallow study by Lian Anderson NP of [facility]. Patient ambulated with assistance of a cane. She was accompanied to this exam by her daughter. Per chart review, patient complaining of dysphagia. When drinking water or eating food, feeling ?like her throat is squeezing it and then crashing down.? Today patient reports coughing and choking on saliva, air, and randomly with food or drink. Oral Motor Exam Facial Symmetry: Symmetrical Mouth Occlusion: Normal Oral-Facial Teeth Characteristics: Partially Missing Spaces Dentures Oral-Facial Smile (Lips) Description: Normal Tongue Size: Normal Tongue Excursion Description: Normal Tongue Range of Movement Description: Normal Tongue Speed of Movement Description: Normal Tongue Movement Characteristics: Normal/Absent Food and Liquid Trials: Oral Impairment: Lip Closure: Did not test Oral Impairment: Tongue Control During Bolus Hold: 1=Escape to lateral buccal cavity/floor of mouth (FOM) Oral Impairment: Bolus Preparation/Mastication: 1=Slow prolonged chewing/mashing with complete re-collection Oral Impairment: Bolus Transport/Lingual Motion: 3=Repetitive/disorganized tongue motion Oral Impairment: Oral Residue: 1=Trace residue lining oral structures Oral Impairment:Initiation of Pharyngeal Swallow: 3=Bolus head in pyriforms Pharyngeal Impairment: Soft Palate Elevation: 0=No bolus between soft palate (SP)/pharyngeal wall (PW) Pharyngeal Impairment: Laryngeal Elevation: 0=Complete superior movement of thyroid cartilage (see description) Pharyngeal Impairment: Anterior Hyoid Excursion: 0=Complete anterior movement Pharyngeal Impairment: Epiglottic Movement: 0=Complete inversion Pharyngeal Impairment: Laryngeal Vestibular Closure:: 0=Complete: no air/contrast in laryngeal vestibule Pharyngeal Impairment: Pharyngeal Stripping Wave: 0=Present: complete Pharyngeal Impairment: Pharyngeal Contraction: Did not test Pharyngeal Impairment: Pharyngoesophageal Segment Openin=Complete distension and complete duration: no obstruction of flow Pharyngeal Impairment: Tongue Base (TB) Retraction: 3=Wide column of contrast/air between TB and posterior PW Pharyngeal Impairment: Pharyngeal Residue: 0=Complete pharyngeal clearance Pharyngeal Impairment: Esophageal Clearance Upright Position: Did not test Impressions and Recommendations Clinical Observations: OBJECTIVE: Time-out: performed at 10:40 Evaluation Start: 10:30; Stop: 10:35 Patient Positioning: Seated 70-90 degrees Viewing Planes: LATERAL ONLY Contrast: MBSImP? Standardized Protocol using commercially prepared, standardized Barium viscosities, including: Varibar? THIN LIQUID (40% w/v, <15 cps) , 1/2 Shortbread Cookie (1 x1 x.25 ) MBSImP ID: [id number] MBSImP Results: Lip closure for intraoral bolus containment could not be assessed due to logistical reasons not related to physiologic impairment. Tongue control during bolus hold allowed bolus escape to the lateral buccal cavity/floor of mouth. Bolus preparation and mastication resulted in slow, prolonged chewing/mashing but with complete re-collection. Bolus transport/lingual motion was with repetitive/disorganized motion of the tongue. Oral residue was a trace, lining oral structures. Initiation of the pharyngeal swallow occurred when the bolus head was in the pyriform sinuses. Soft palate elevation resulted in no bolus between the soft palate and the pharyngeal wall. Laryngeal elevation demonstrated complete superior movement of the thyroid cartilage with complete approximation of the arytenoids to the epiglottic petiole. Anterior hyoid excursion demonstrated complete anterior movement. Epiglottic movement resulted in complete inversion. Laryngeal vestibular closure was complete, as indicated by no air or contrast within the laryngeal vestibule at the height of the swallow. Pharyngeal stripping wave was present and complete. Pharyngeal contraction could not be determined due to logistical reasons not related to physiologic impairment. Pharyngoesophageal segment opening was completely distended for complete duration with no obstruction of bolus flow. Tongue base retraction allowed a wide column of contrast or air between the retracted tongue base and the posterior pharyngeal wall. Pharyngeal residue was not present. There was complete pharyngeal clearance. Esophageal clearance in the upright position could not be assessed due to logistical reasons not related to physiologic impairment. Oral Impairment Score: 8 (absence of score, component 1) Pharyngeal Impairment Score: 3 (absence of score, component 13) Esophageal Impairment Score: --- (absence of score, component 17) Laryngeal Penetration and Aspiration: Neither penetration nor aspiration was observed in today's study with Cookie, Thin. ASSESSMENT: Clinician Assessment: This exam was conducted by a multidisciplinary team, which included a speech pathologist, radiologist, and radiology transporter. Patient was seated in chair at upright 90 degree position for lateral view only. Patient trialed the following liquid and solid consistencies: thin liquid barium by cup (individual sip and consecutive sips), pureed solid (mixture applesauce with barium paste), ground solid (mixture chicken salad with barium paste), and regular solid (Missy Doone cookie coated with barium paste). There was escape of trace amount liquid to the floor of mouth, but not premature posterior escape of bolus. Mastication was slow and prolonged with repetitive posterior lingual movements for transport of bolus. Noted piece meal deglutition pattern. Patient chewed bolus, swallowed partial bolus, continued chewing and then swallowed remaining bolus. Trace lingual residue subsequently cleared. Delayed initiation of pharyngeal swallow trigger, initiated as bolus head reached pyriform sinuses. No nasopharyngeal reflux. Complete laryngeal elevation with complete anterior hyoid excursion and complete epiglottic inversion. Laryngeal vestibular closure was complete. There was no evidence of aspiration or penetration during this exam. Complete pharyngeal clearance. Good clearing of valleculae and pyriform sinuses. No obstruction of flow through pharyngoesophageal segment opening. Liquid Intake Recommendation: Thin Liquid Intake Strategies: Small Sips Dietary Recommendations: Regular Medication Administration: Whole with Liquid Please contact the pharmacy regarding appropriate crushable or liquid drug formulations that are available whenever modified delivery is recommended. Compensatory Strategies Recommended: Sitting Upright (90 deg), Small Bites and Sips, Alternate Liquids/Solids, Rate of Ingestion Change Supervision during eating and or drinking: Intermittent Supervision Recommendation for Speech Therapy: NA:Typical Evaluation Text Comment: PLAN: Intake Recommendations: Route: PO Diet Grade: Regular Liquid Consistencies: Thin Post-Study Functional Oral Intake Scale (FOIS): 7- Total oral intake with no restrictions Patient displayed delayed and prolonged phase, characterized by prolonged mastication, delayed AP transport of bolus, repetitive posterior lingual movements. Pharyngeal swallow trigger was delayed. Pharyngeal phase otherwise unremarkable. Complete laryngeal elevation. Complete laryngeal vestibular closure. No evidence of aspiration or penetration. Good oral clearance and good pharyngeal clearance. Recommend patient resume unmodified diet REGULAR solids with THIN liquids: -take small bites -chew food well -moisten food with sauce/gravy as needed -clear oral cavity before taking more bites -alternate bite of food with sip of liquid -take small individual sips -maintain upright 90 degree position when eating or drinking -avoid difficult to chew foods Patient was referred to [facility] by her PCP Skip Marrero MD for patient?s complaints of trouble swallowing. She is being worked up by [facility], subsequently referred for this MBSS. Patient did also report coughing on air. She may benefit from a consult w/ Pulmonology. Suggested Referrals: The patient might benefit from a referral to: Gastroenterology Indication for Referral: continue workup The patient might benefit from a referral to: Pulmonology Indication for Referral: continue workup Therapy Recommendations: Therapy will be discontinued Prognosis for Improvement: The prognosis for the patient to meet nutritional needs by mouth is excellent based on degree of impairment. Clinician - Supplemental, Miscellaneous Communication: It is important to note MBSS objective studies are snapshots in time and Patient function might vary with factors such as time of day or concomitant medical conditions. For this reason, the final treatment plan for this patient should rest with their medical care team. Additional recommendations should be considered with the totality of the Patient in mind. Thank for the opportunity to participate in the care of this patient. If you have any questions about the content of this report, please contact the [facility] at [facility]. Education: Education regarding findings from today's study and plans for therapy were provided to Patient and family/caregiver through Verbal Instruction. Understanding was expressed by the Patient and family/caregiver. Edi Architect Clinician/Clinical Fellow: No Supervisory Statement: N/A Speech Language Pathologist: Kirti Shahid M.A., [facility]-[employer]IO MECHANIC APPRENTICE
== END 2021-10-29 10:26 | disposition home or self-care (01) ==
LOC: HO.XRAY 10:25
PROVIDERS: Visit Provider Nurse Practitioner
DX: R13.10 Dysphagia, unspecified (principal); K21.9 Gastro-esophageal reflux disease without esophagitis
CPT/HCPCS: 74230; 92611

== ENCOUNTER 2021-11-24 16:01 | Outpatient (RCR) | payer OTHER, SELFPAY | END 2021-12-06 10:49 | disposition home or self-care (01) | LOC: HO.PT 16:01 | PROVIDERS: PCP Internal Medicine Geriatric Medicine; Visit Provider Internal Medicine Geriatric Medicine | DX: M54.50 Low back pain, unspecified (principal) | CPT/HCPCS: 97110; 97163 ==

== ENCOUNTER → 2021-12-09 11:20 | Outpatient (BNVA) | payer OTHER, SELFPAY | PROVIDERS: PCP Internal Medicine Geriatric Medicine; Visit Provider Nurse Practitioner | DX: K31.84 Gastroparesis (principal); K58.0 Irritable bowel syndrome with diarrhea; R13.10 Dysphagia, unspecified; R06.02 Shortness of breath | CPT/HCPCS: 99212 ==

== ENCOUNTER → 2022-01-07 08:19 | Outpatient (BNVA) | payer OTHER, SELFPAY | PROVIDERS: PCP Internal Medicine Geriatric Medicine; Visit Provider Nurse Practitioner | DX: K58.0 Irritable bowel syndrome with diarrhea (principal); K31.84 Gastroparesis | CPT/HCPCS: 99212 ==

== ENCOUNTER → 2022-01-10 10:26 | Outpatient (BNVA) | payer OTHER, SELFPAY | PROVIDERS: PCP Internal Medicine Geriatric Medicine; Visit Provider Internal Medicine Pulmonary Disease | DX: R06.02 Shortness of breath (principal); R05.9 Cough, unspecified; K21.9 Gastro-esophageal reflux disease without esophagitis | CPT/HCPCS: 99202 ==

== ENCOUNTER → 2022-02-03 08:10 | Outpatient (BNVA) | payer OTHER, SELFPAY | PROVIDERS: PCP Internal Medicine Geriatric Medicine; Visit Provider Nurse Practitioner | DX: K31.84 Gastroparesis (principal); K21.9 Gastro-esophageal reflux disease without esophagitis; K59.00 Constipation, unspecified | CPT/HCPCS: 99212 ==

== ENCOUNTER 2022-04-14 11:01 | Outpatient (REF) | payer OTHER, SELFPAY ==
--- NOTE | 2022-04-14 16:59 | PFT_ITS ---
FLOWS: FEV1 78% of predicted at 1.49 L. FVC 70% of predicted at 1.76 L. FEV1 to FVC ratio of 0.85. No bronchodilator response. LUNG VOLUMES: Total lung capacity 76% of predicted at 3.62 L. Residual volume 74% of predicted at 1.64 L. Slow vital capacity 78% of predicted at 1.98 L. Expiratory reserve volume 48% of predicted at 0.25 L. Diffusion capacity is mildly decreased, diffusion capacity corrects to normal after adjustment for alveolar ventilation. IMPRESSION: Moderate restrictive ventilatory defect with no bronchodilator response. Arden Cesar MD AP/MODL / [id number]
== END 2022-04-14 11:02 | disposition home or self-care (01) ==
LOC: HO.RESP 11:01
PROVIDERS: PCP Internal Medicine Geriatric Medicine; Visit Provider Internal Medicine Pulmonary Disease
DX: R06.02 Shortness of breath (principal)
CPT/HCPCS: 94060; 94727; 94729

== ENCOUNTER → 2022-05-20 10:24 | Outpatient (BNVA) | payer OTHER, SELFPAY | PROVIDERS: PCP Internal Medicine Geriatric Medicine; Visit Provider Internal Medicine Pulmonary Disease | DX: R05.9 Cough, unspecified (principal); K21.9 Gastro-esophageal reflux disease without esophagitis; R91.8 Other nonspecific abnormal finding of lung field; R06.09 Other forms of dyspnea; I10 Essential (primary) hypertension; E11.8 Type 2 diabetes mellitus with unspecified complications | CPT/HCPCS: 99212 ==

== ENCOUNTER 2022-06-29 10:29 | Outpatient (REF) | payer OTHER, SELFPAY ==
--- NOTE | ~2022-06-29 | CT_ITS ---
EXAMINATION: CT CHEST WITHOUT CONTRAST CLINICAL INFORMATION: Pulmonary nodule COMPARISON: None TECHNIQUE: Multidetector volumetric CT imaging of the chest was done. Axial MIP volume rendering provided. Sagittal and coronal reformatted images were obtained. This CT examination was performed using dose optimization techniques as appropriate, variously including the following: *Automated exposure control *Adjustment of mA and/or kV according to patient size (this includes techniques or standardized protocols for targeted exams where dose is matched to indication/reason for exam; i.e. extremities or head) *Use of iterative reconstruction technique DLP: 150 FINDINGS: LUNGS: Right middle lobe 2 mm nodule (5:261) right upper lobe 3 mm nodule (5:132). Right middle lobe 1 mm nodule (5:2 2). Right lower lobe 3 mm nodule (5:275). Right lower lobe 4 mm nodule (5:258). Right lower lobe 5 mm nodule (5:246). Left upper lobe 2 mm nodule (5:124). 4 mm left upper lobe nodule (5:158). Left upper lobe 5 mm calcified nodule (5:347). Left upper lobe lingular 4 mm nodule (5:282). Left lower lobe subpleural 2 mm nodule (5:240). MEDIASTINUM: No mediastinal adenopathy. Mild coronary artery atherosclerotic calcifications. PLEURA: There is no pleural effusion. No pleural mass or thickening. AXILLA: No lymphadenopathy. UPPER ABDOMEN: Small hiatal hernia. OSSEOUS STRUCTURES/SOFT TISSUES: Degenerative changes of the thoracic spine. CT/CT chest wo IV con IMPRESSION: Bilateral pulmonary nodules measuring up to 5 mm. Fleischner guidelines were followed. According to the UPDATED 2017 Fleischner Society recommendations, the advised followup imaging for solid nodules < 6 mm is: LOW RISK PATIENT: No routine follow up. HIGH RISK PATIENT: Optional CT at 12 months.
== END 2022-06-29 10:30 | disposition home or self-care (01) ==
LOC: HO.CT 10:29
PROVIDERS: Visit Provider Internal Medicine Pulmonary Disease
DX: R91.8 Other nonspecific abnormal finding of lung field (principal)
CPT/HCPCS: 71250

== ENCOUNTER → 2022-08-03 08:09 | Outpatient (BNVA) | payer OTHER, SELFPAY | PROVIDERS: PCP Internal Medicine Geriatric Medicine; Referring Provider Internal Medicine Geriatric Medicine; Visit Provider Nurse Practitioner | DX: K31.84 Gastroparesis (principal); K21.9 Gastro-esophageal reflux disease without esophagitis | CPT/HCPCS: 99212 ==

== ENCOUNTER → 2022-08-19 08:25 | Outpatient (BNVA) | payer OTHER, SELFPAY | PROVIDERS: PCP Internal Medicine Geriatric Medicine; Visit Provider Nurse Practitioner | DX: K21.9 Gastro-esophageal reflux disease without esophagitis (principal); K31.84 Gastroparesis; K58.2 Mixed irritable bowel syndrome | CPT/HCPCS: 99212 ==

== ENCOUNTER → 2022-09-06 08:21 | Outpatient (BNVA) | payer OTHER, SELFPAY | PROVIDERS: PCP Internal Medicine Geriatric Medicine; Visit Provider Nurse Practitioner | DX: K59.00 Constipation, unspecified (principal); K21.9 Gastro-esophageal reflux disease without esophagitis; K64.9 Unspecified hemorrhoids | CPT/HCPCS: 99212 ==

== ENCOUNTER → 2022-09-22 11:35 | Outpatient (BNVA) | payer OTHER, SELFPAY | PROVIDERS: PCP Internal Medicine Geriatric Medicine; Visit Provider Internal Medicine Pulmonary Disease | DX: J45.909 Unspecified asthma, uncomplicated (principal); R91.8 Other nonspecific abnormal finding of lung field; Z87.891 Personal history of nicotine dependence | CPT/HCPCS: 99212 ==

== ENCOUNTER → 2022-10-06 09:30 | Outpatient (BNVA) | payer OTHER, SELFPAY | PROVIDERS: PCP Internal Medicine Geriatric Medicine; Visit Provider Nurse Practitioner | DX: K59.00 Constipation, unspecified (principal); K21.9 Gastro-esophageal reflux disease without esophagitis; K64.9 Unspecified hemorrhoids; B37.89 Other sites of candidiasis | CPT/HCPCS: 99212 ==

== ENCOUNTER 2023-01-17 09:55 | Outpatient (REF) | payer OTHER, SELFPAY ==
[2023-01-17 12:56] LABS: Creatinine Urine 61.14 mg/dL; Microalbumin Urine < 5.0 mg/L
== END 2023-01-17 09:56 | disposition home or self-care (01) ==
LOC: HO.HHCL 09:55
PROVIDERS: Visit Provider Internal Medicine Geriatric Medicine
DX: E11.69 Type 2 diabetes mellitus with other specified complication (principal); E11.22 Type 2 diabetes mellitus with diabetic chronic kidney disease; N18.32 Chronic kidney disease, stage 3b
CPT/HCPCS: 82043; 82570

== ENCOUNTER 2023-04-03 09:35 | Outpatient (REF) | payer OTHER, SELFPAY ==
[2023-04-03 12:25] LABS: Anion Gap 13 (12-20); Blood Urea Nitrogen 22 mg/dL (9-16); Calcium 9.5 mg/dL (8.4-10.2); Carbon Dioxide 25 mmol/L (22-29); Chloride 106 mmol/L (96-108); Estimated Glomerular Filt Rate 41; Glucose Random 194 mg/dL (60-115); Potassium 4.7 mmol/L (3.3-5.1); Sodium 139 mmol/L (135-145)
== END 2023-04-03 09:36 | disposition home or self-care (01) ==
LOC: HO.HHCL 09:35
PROVIDERS: Visit Provider Internal Medicine Geriatric Medicine
DX: E11.69 Type 2 diabetes mellitus with other specified complication (principal); I10 Essential (primary) hypertension
CPT/HCPCS: 36415; 80048

== ENCOUNTER 2023-04-05 09:32 | Outpatient (AMB) | payer OTHER, SELFPAY ==
--- NOTE | 2023-04-05 09:35 | MHC.OFFVIS ---
Intake Vital Signs 04/05/23 09:36 Height 5 ft 2 in Weight 154 lb 5.177 oz BMI 28.2 BP 145/88 H Blood Pressure Location Lt brachial Position Sitting Pulse 82 Intake Visit Reasons: 6 mnth follow up Intake Note: Veda presents in the office today in 6 months follow up of CIC. CC: Patient reports having constipation and chocking. Denies c Guitar Repairer Required: No Allergies No Known Allergies Allergy (Verified 04/05/23 09:39) HPI 6 mnth follow up HPI Details Assessment & Plan (1) Constipation: Code(s): K59.00 - Constipation, unspecified Plan: [place] #Cayla Live She says she is doing very well! She is getting her aciphex and the bisacodyl is moving her bowels well, twice a day. She also has colace. She is also using the proctosol cream and it is partially working, as she will still have itching sometimes - she asks is it the sugar? This is possible, since sarah could also be a problem and a steroid would actually worsen this. I suggest a trial of nystatin ointment for this. She can use whichever works better. Blood sugar control IS critical to controlling sarah. She is now happy with her GI regimen. ROV 6 mos. (2) GERD (gastroesophageal reflux disease): Code(s): K21.9 - Gastro-esophageal reflux disease without esophagitis (3) Rectal candidiasis: Code(s): B37.89 - Other sites of candidiasis (4) Bleeding hemorrhoids: Code(s): K64.9 - Unspecified hemorrhoids Medications: New nystatin 1 appl topical BI D 30 grams 3RF B37.89 - Other sit es of candidiasis TODAY'S VISIT Michel Driver This will be her 1st colonoscopy. She continues to strain with her BM's and describes to me a process whereby she will feel the stool like it wants to come out of my front, and I have to make a fist to push from the outside to reposition the stool so it can come out. This describes a rectal prolapse. She can not take the bisacodyl every day at 2 tabs but this will cause diarrhea that is so severe that deidre has to take imodium. She will take 1 tablet about twice a week to keep the stools moving. She also has urinary urgency and has to run to the BR as soon as she feels the urge, she has nocturnal frequency taht she tries to control by not drinking later in the day (which does not help with the CIC). She has never had a colonoscopy so we will schedule this but it is not usually definitive in dx for CIC which was her concern. She IS agreeable to a referral to [employer] CH[employer] PACKAGING MACHINE OPERATOR to be evaluated for rectal prolapse. She was educated that she may need surgical correction in terms of bladder etc. to fix. We will cross that bridge depending on the going forward. There are no prior problems with anesthesia or sedation. She has asthma that is controlled and experiences palpitations but she has been told her heart is fine. No ID problems. There is no known family history of colon cancer or polyps. Return office visit in 3 months and after her colonoscopy. [facility] Medical History Irritable bowel syndrome with diarrhea Other and unspecified hyperlipidemia Essential hypertension Type 2 diabetes mellitus with unspecified complications Urgency of micturition Urge incontinence Urgency incontinence Surgical History History of esophagogastroduodenoscopy (EGD) History of section Family History Father No problems noted. Mother No problems noted. Patient Tobacco Use Status: Former Tobacco user Tobacco use type: Cigarette Review of Systems Const Denies fatigue, Denies fever(s), Denies night sweats, Denies poor appetite and Denies weight loss Eyes Details: glasses Reports requires corrective lenses ENT Reports Normal hearing present, Denies dental pain, Denies dysphagia, Denies hearing loss, Denies mouth pain, Denies odynophagia, Denies throat swelling, Denies tongue swelling and Reports other (Dentition adequate) Card Reports palpitations Resp Reports no additional complaints GI Denies abdominal pain, Denies melena, Denies bloating, Denies hematochezia, Reports constipation, Denies GI cramping, Denies dysphagia, Denies excessive flatus, Denies early satiety, Reports heartburn, Denies diarrhea, Denies nausea, Denies odynophagia, Denies vomiting and Denies hematemesis Reports difficulty voiding and Reports nocturia Musc Reports arthralgias and Reports joint swelling Skin/Breast Denies pruritus, Denies lesions, Denies rash and Denies jaundice Neuro Reports Normal hearing present and Denies Abnormal speech present Endo Denies fatigue and Reports palpitations Aller/Immun Denies throat swelling and Denies tongue swelling Physical Exam Vital Signs: Last Vital Signs Pulse 82 04/05/23 09:36 BP 145/88 H 04/05/23 09:36 BMI result Body Mass Index 28.2 Const General: cooperative, no acute distress, well developed and well groomed Nutritional Appearance: well nourished and obese morbidly obese Orientation/consciousness: oriented to person, oriented to place and oriented to time Limitations: language barrier and ambulation with cane HEENT Head: Yes normocephalic and Yes atraumatic Eyes General: appearance normal, both eyes and all related structures Pupils: Equal, round and reactive pupils present Neck Neck: Yes normal visual inspection and Yes no lymphadenopathy Thyroid: Thyroid normal Resp Effort & Inspection: normal respiratory effort and able to speak in complete sentences Auscultation: clear to auscultation bilaterally Cardio Rate: regular rate Rhythm: regular rhythm Heart sounds: Normal, physiologic split S2 sound present Peripheral pulses: radial pulses present and posterior tibial pulses present GI Inspection: No distended, Yes Abdominal panniculus present and Yes obesity Palpation (GI): Soft to palpation, nontender, no guarding, not rigid and No hepatosplenomegaly present Percussion: Yes normal to percussion Auscultation: normal bowel sounds Rectal Exam - Female: deferred Skin General skin exam: no rashes or lesions noted, turgor normal, skin not dry, no jaundice, No spider nevi and no striae Rashes: no rashes Nails: normal Neuro General: oriented to person, oriented to place and oriented to time Cranial nerves: Yes Equal, round and reactive pupils present and Yes Normal hearing present Speech: No Abnormal speech present Extrem General: Yes normal to inspection, No clubbing, No cyanosis and No edema Psych Appearance: grossly normal and well kempt Mental Status: mental status grossly normal Speech and movement: Normal speech and movement present Affect: normal affect Thought process: Normal thought process present and not confabulating Thought content: Normal thought content present Insight: Limited insight present (Psych) Judgement: Limited judgement present (Psych) Assessment & Plan Assessment & Plan (1) Constipation: Code(s): K59.00 - Constipation, unspecified Plan: This will be her 1st colonoscopy. She continues to strain with her BM's and describes to me a process whereby she will feel the stool like it wants to come out of my front, and I have to make a fist to push from the outside to reposition the stool so it can come out. This describes a rectal prolapse. She can not take the bisacodyl every day at 2 tabs but this will cause diarrhea that is so severe that se has to take imodium. She will take 1 tablet about twice a week to keep the stools moving. She also has urinary urgency and has to run to the BR as soon as she feels the urge, she has nocturnal frequency taht she tries to control by not drinking later in the day (which does not help with the CIC). She has never had a colonoscopy so we will schedule this but it is not usually definitive in dx for CIC which was her concern. She IS agreeable to a referral to [employer] PACKAGING MACHINE OPERATOR to be evaluated for rectal prolapse. She was educated that she may need surgical correction in terms of bladder etc. to fix. We will cross that bridge depending on the going forward. There are no prior problems with anesthesia or sedation. She has asthma that is controlled and experiences palpitations but she has been told her heart is fine. No ID problems. There is no known family history of colon cancer or polyps. Return office visit in 3 months and after her colonoscopy. (2) GERD (gastroesophageal reflux disease): Code(s): K21.9 - Gastro-esophageal reflux disease without esophagitis (3) Rectal prolapse: Comment: ? prolapse causing difficulty in controlling u r ine and CIC Code(s): K62.3 - Rectal prolapse (4) Pre-op examination: Code(s): Z01.818 - Encounter for other preprocedural examination Plan This will be her 1st colonoscopy. She continues to strain with her BM's and describes to me a process whereby she will feel the stool like it wants to come out of my front, and I have to make a fist to push from the outside to reposition the stool so it can come out. This describes a rectal prolapse. She can not take the bisacodyl every day at 2 tabs but this will cause diarrhea that is so severe that seh has to take imodium. She will take 1 tablet about twice a week to keep the stools moving. She also has urinary urgency and has to run to the BR as soon as she feels the urge, she has nocturnal frequency taht she tries to control by not drinking later in the day (which does not help with the CIC). She has never had a colonoscopy so we will schedule this but it is not usually definitive in dx for CIC which was her concern. She IS agreeable to a referral to [employer] PACKAGING MACHINE OPERATOR to be evaluated for rectal prolapse. She was educated that she may need surgical correction in terms of bladder etc. to fix. We will cross that bridge depending on the going forward. There are no prior problems with anesthesia or sedation. She has asthma that is controlled and experiences palpitations but she has been told her heart is fine. No ID problems. There is no known family history of colon cancer or polyps. Return office visit in 3 months and after her colonoscopy. Orders: Orders Comprehensive Met. Panel Today Z01.818 - Encounter for other preprocedural examination Colonoscopy - GI Use Only Today Complete Blood Count Auto Diff Today Z01.818 - Encounter for other preprocedural examination Referrals ENVIRONMENTAL SERVICES TECHNICIAN Referral K62.3 - Rectal prolapse Medications: New sodium,potassium,mag sulfates 17.5-3.13-1.6 gram (Suprep Bowel Prep Kit) 480 mL orally; 354 mL 0RF colonoscopy Coding Level of Care Code Est Pt Level 4 (13547) Diagnoses Constipation K59.00 GERD (gastroesophageal reflux disease) K21.9 Rectal prolapse K62.3 Pre-op examination Z01.818
[2023-04-05 09:36] VITALS: BP 145/88; PULSE 82; BMI 28.2
== END 2023-04-05 10:26 | disposition home or self-care (01) ==
PROVIDERS: Visit Provider Nurse Practitioner
DX: K59.00 Constipation, unspecified (principal); K21.9 Gastro-esophageal reflux disease without esophagitis; K62.3 Rectal prolapse; Z01.818 Encounter for other preprocedural examination
CPT/HCPCS: 99214

== ENCOUNTER 2023-04-05 09:32 | Outpatient (REF) | payer OTHER, SELFPAY ==
[2023-04-05 11:00] LABS: MANUAL DIFF FLAG NO
[2023-04-05 11:11] LABS: Basophils Percent Auto 0.4 % (0-2); Eosinophils Absolute Auto 0.1 X10*3/uL (0.0-0.4); Eosinophils Percent Auto 1.6 % (0-4); Hematocrit 41.7 % (37.0-47.0); Hemoglobin 13.7 g/dl (12.0-16.0); Imm Gran Abs Auto 0.03 X10*3/uL (0.00-0.03); Imm Gran Pct Auto 0.4 % (0.0-0.4); Lymphocytes Absolute Auto 2.7 X10*3/uL (1.2-4.9); Lymphocytes Percent Auto 33.2 % (20-40); Mean Corpuscular HGB Conc 32.9 g/dl (31.0-35.0); Mean Corpuscular Hemoglobin 28.7 pg (27.0-33.0); Mean Corpuscular Volume 87.4 fL (80.0-98.0); Mean Platelet Volume 9.6 fL (9.4-12.3); Monocytes Absolute Auto 0.6 X10*3/uL (0.1-1.2); Monocytes Percent Auto 7.4 % (2-11); Neutrophils Absolute Auto 4.7 x10*3/uL (2.0-8.3); Platelet Count 230 X10*3/uL (160-400); Red Blood Count 4.77 X10*6/uL (4.20-5.50); White Blood Count 8.2 X10*3/uL (4.8-10.8)
[2023-04-05 11:29] LABS: Alanine Aminotransferase 26 U/L (0-31); Albumin Level 4.1 g/dL (3.5-5.0); Alkaline Phosphatase 78 U/L (39-117); Anion Gap 10 (12-20); Aspartate Amino Transferase 24 U/L (5-31); Bilirubin Total 0.7 mg/dL (0.0-1.0); Blood Urea Nitrogen 20 mg/dL (9-16); Calcium 9.3 mg/dL (8.4-10.2); Carbon Dioxide 30 mmol/L (22-29); Chloride 105 mmol/L (96-108); Estimated Glomerular Filt Rate 39; Glucose Random 220 mg/dL (60-115); Potassium 4.8 mmol/L (3.3-5.1); Sodium 140 mmol/L (135-145); Total Protein 7.1 g/dL (6.5-8.0)
== END 2023-04-05 09:33 | disposition home or self-care (01) ==
LOC: HO.LAB 09:32
PROVIDERS: PCP Internal Medicine Geriatric Medicine; Visit Provider Nurse Practitioner
DX: Z01.818 Encounter for other preprocedural examination (principal); K59.00 Constipation, unspecified; K21.9 Gastro-esophageal reflux disease without esophagitis; K63.2 Fistula of intestine
CPT/HCPCS: 36415; 80053; 85025; 99212

== ENCOUNTER 2023-05-05 10:00 | Outpatient (AMB) | payer OTHER, SELFPAY ==
[2023-05-05 10:01] VITALS: BP 120/78; PULSE 91; O2SAT 98; BMI 27.4
--- NOTE | 2023-05-05 10:01 | MHC.OFFVIS ---
Intake Vital Signs 05/05/23 10:01 Height 5 ft 2 in Weight 149 lb 14.629 oz BMI 27.4 BP 120/78 Blood Pressure Location Rt brachial Position Sitting Pulse 91 Pulse Source Doppler Pulse Oximetry (%) 98 Oxygen Delivery Method Room Air Intake Visit Reasons: copd Track Repair Person Required: Yes Track Repair Person Name: Haydee Jeyson Rodríguez Allergies No Known Allergies Allergy (Verified 05/05/23 10:04) HPI copd HPI Details 78-year-old lady, remote minimal smoker in her 20s, with underlying history of GERD under GI care followed for asthma and pulmonary nodules. After the last office visit patient states that his symptoms not been bothering her much and she stop using her Trelegy. She under rarely uses albuterol MDI. She does complain of intermittent palpitations and also of intermittent tremors. [facility] Medical History Irritable bowel syndrome with diarrhea Other and unspecified hyperlipidemia Essential hypertension Type 2 diabetes mellitus with unspecified complications Urgency of micturition Urge incontinence Urgency incontinence Surgical History History of esophagogastroduodenoscopy (EGD) History of section Family History Father No problems noted. Mother No problems noted. Social History Patient Tobacco Use Status: Former Tobacco user Tobacco use type: Cigarette Review of Systems Const Denies daytime sleepiness, Denies excessive sweating, Denies fatigue, Denies fever(s), Denies lethargy, Denies malaise, Denies night sweats, Denies snoring and Denies weight loss Eyes Denies blurry vision and Denies itchy eyes ENT Denies nasal congestion, Denies post nasal drip, Denies sinus pain, Denies sinus pressure and Denies other ( Thrush) Card Denies chest pain, Denies pedal edema, Reports palpitations, Denies dyspnea, Denies orthopnea and Denies paroxysmal nocturnal dyspnea Resp Denies cough, Denies hemoptysis, Denies excessive phlegm production, Denies dyspnea, Denies snoring and Denies wheezing GI Denies abdominal pain and Denies heartburn Musc Denies myalgias, Denies arthralgias and Denies joint swelling Skin/Breast Denies rash Neuro Denies memory loss and Denies seizure-like activity Psych Denies abnormal sleep pattern, Denies anxiety and Denies memory loss Endo Denies excessive sweating, Denies fatigue, Denies heat intolerance and Reports palpitations Kam/Lymph Denies easy bruising Aller/Immun Denies itchy eyes, Denies seasonal rhinorrhea and Denies wheezing Physical Exam Vital Signs: Last Vital Signs Pulse 91 05/05/23 10:01 BP 120/78 05/05/23 10:01 Pulse Ox 98 05/05/23 10:01 Oxygen Delivery Method Room Air 05/05/23 10:01 BMI result Body Mass Index 27.4 Const General: no acute distress and alert Nutritional Appearance: not obese Orientation/consciousness: Other orientation findings ( oriented) HEENT Head: Yes atraumatic Eyes General: appearance normal, both eyes and all related structures Sclerae: sclerae normal EOM: EOMs intact bilaterally Neck Neck: Yes supple Lymphatic: no lymphadenopathy noted Resp Effort & Inspection: normal respiratory effort and no use of accessory muscles Auscultation: clear to auscultation bilaterally Cardio Rate: regular rate Rhythm: regular rhythm Heart sounds: no gallops, no murmurs and no rubs Skin General skin exam: other ( warm) Extrem General: No clubbing, No cyanosis and No edema Assessment & Plan Assessment & Plan (1) Asthma: Code(s): J45.909 - Unspecified asthma, uncomplicated Plan: No longer requires Trelegy. Continue albuterol MDI as needed. (2) Pulmonary nodules: Code(s): R91.8 - Other nonspecific abnormal finding of lung field Plan: Follow-up CT chest is pending for September of 2023. (3) Palpitations: Code(s): R00.2 - Palpitations Plan: Patient complain of intermittent episodes of tachycardia. Will refer to cardiology for further evaluation. (4) Coarse tremors: Code(s): G25.2 - Other specified forms of tremor Plan: Patient has complain of intermittent bilateral tremors in her hands. Will refer to Neurology. Orders: Referrals Neurology Referral G25.2 - Other specified forms of tremor Cardiology Referral R00.2 - Palpitations Medications: Discontinued skufvxxvfre-oqlynooyj-avribdqo 100-62.5-25 mcg (Trelegy Ellipta) Discontinued Reason: Doctor's Order 1 inh inhalation DAILY 1 ea 6RF 30 days R06.09 - Other forms of dyspnea Coding Level of Care Code Est Pt Level 4 (82301) Diagnoses Asthma J45.909 Pulmonary nodules R91.8 Palpitations R00.2 Coarse tremors G25.2
== END 2023-05-05 10:18 | disposition home or self-care (01) ==
PROVIDERS: PCP Internal Medicine Geriatric Medicine; Visit Provider Internal Medicine Pulmonary Disease
DX: J45.909 Unspecified asthma, uncomplicated (principal); R91.8 Other nonspecific abnormal finding of lung field; R00.2 Palpitations; G25.2 Other specified forms of tremor
CPT/HCPCS: 99214

== ENCOUNTER → 2023-05-05 10:00 | Outpatient (BNVA) | payer OTHER, SELFPAY | PROVIDERS: PCP Internal Medicine Geriatric Medicine; Visit Provider Internal Medicine Pulmonary Disease | DX: J45.909 Unspecified asthma, uncomplicated (principal); R91.8 Other nonspecific abnormal finding of lung field; R00.2 Palpitations; G25.2 Other specified forms of tremor | CPT/HCPCS: 99212 ==

== ENCOUNTER 2023-06-23 09:03 | Outpatient (REF) | payer OTHER, SELFPAY ==
--- NOTE | ~2023-06-23 | XR_ITS ---
EXAMINATION: XR TOES, LEFT CLINICAL INFORMATION: Injury left great toe 3 months ago. Still has pain COMPARISON: None available. TECHNIQUE: 3 views of the left toes were obtained. FINDINGS: There is a small fracture base of distal phalanx great toe with intra-articular extension. No callus formation seen. No major displacement. No abnormal soft tissue swelling seen. XR/XR toe LT min 2V IMPRESSION: Unhealed fracture proximal end distal phalanx great toe with intra-articular extension.
== END 2023-06-23 09:04 | disposition home or self-care (01) ==
LOC: HO.HHCX 09:03
PROVIDERS: PCP Internal Medicine Geriatric Medicine; Referring Provider Emergency Medicine; Visit Provider Nurse Practitioner Family
DX: M79.675 Pain in left toe(s) (principal); R00.2 Palpitations; R07.89 Other chest pain; I10 Essential (primary) hypertension
CPT/HCPCS: 73660; 93005; 99212

== ENCOUNTER 2023-06-23 09:03 | Outpatient (AMB) | payer OTHER, SELFPAY ==
--- NOTE | 2023-06-23 09:04 | A.OFFVIS_ITS ---
Intake Vital Signs 06/23/23 09:08 Height 5 ft 2 in Weight 148 lb 2.41 oz BMI 27.1 BP 148/66 H Blood Pressure Location Lt brachial Position Sitting Pulse 66 Intake Visit Reasons: overdue/ palpitations Intake Note: follow up Rope Twisting Machine Operator Required: Yes Rope Twisting Machine Operator Language: Syrian Accompanied by: Self / Same As Patient Allergies No Known Allergies Allergy (Verified 06/23/23 09:09) Medication List - Last Reconciled 06/23/23 by NISREEN Baldwin alcohol swabs (Alcohol Prep Pads) pad topical BID aspirin 81 mg PO DAILY atorvastatin 40 mg PO DAILY bisacodyl 10 mg (2 x 5 mg) PO BEDTIME blood sugar diagnostic (FreeStyle Lite Strips) As directed bupropion HCl 300 mg PO DAILY clotrimazole 1% appl topical docusate sodium (Colace) 100 mg PO .DAILY WITH FOOD 30 days doxepin 10 mg PO DAILY dulaglutide (Trulicity) mg subcut QWEEK empagliflozin (Jardiance) 25 mg PO DAILY enalapril maleate 20 mg PO DAILY hydrochlorothiazide 25 mg PO DAILY hydrocortisone acetate (Anusol-HC) 25 mg WI BID insulin aspart U-100 (Novolog FlexPen U-100 Insulin aspart) 20 units subcut TID insulin degludec (Tresiba FlexTouch U-200 insulin) 68 units subcut QPM insulin syringe-needle U-100 As directed metoprolol succinate ER 25 mg PO DAILY mirabegron ER (Myrbetriq) 25 mg PO DAILY 30 days mirtazapine 7.5 mg PO BEDTIME nabumetone 500 mg PO BID nystatin 1 appl topical BID rabeprazole (AcipHex) 20 mg PO BID sertraline 50 mg PO DAILY sodium,potassium,mag sulfates 17.5-3.13-1.6 gram (Suprep Bowel Prep Kit) 480 mL orally; trazodone 50 mg PO BEDTIME PRN HPI overdue/ palpitations HPI Details Veda is a 78-year-old female past medical history of hypertension, hyperlipidemia, diabetes, chest discomfort with normal coronary arteries on CTA who presents with report of heart palpitations. Last prior visit to our office was 01/13/2021. Today she reports that she has issues with tachycardia. She can feel her heart going fast and it causes her concern. She has not able to clearly say how long the episodes last. She describes it it happens sometimes. She is vague even with the use of a chairman of the board. She will get occasional sharp pains in her mid chest. No clear exertional chest discomfort. She has some shortness of breath with exertion which is not new. No presyncope, syncope, falls, PND, orthopnea or edema. Taking meds as directed. [facility] Medical History Irritable bowel syndrome with diarrhea Other and unspecified hyperlipidemia Essential hypertension Type 2 diabetes mellitus with unspecified complications Urgency of micturition Urge incontinence Urgency incontinence Surgical History History of esophagogastroduodenoscopy (EGD) History of section Family History Father No problems noted. Mother No problems noted. Social History Patient Tobacco Use Status: Former Tobacco user Tobacco use type: Cigarette Review of Systems Const All systems reviewed & are unremarkable except as noted in HPI and below Denies weakness ENT Denies dizziness Card Denies chest pain, Denies chest pain with activity, Denies syncope, Reports rapid heart rate, Denies pedal edema, Denies edema, Denies leg edema, Denies lightheadedness, Reports palpitations, Reports dyspnea on exertion and Denies orthopnea Resp Denies cough and Reports dyspnea on exertion GI Denies hematochezia and Denies change in stool character Musc Denies abnormal gait, Denies muscle cramps, Denies muscle weakness, Denies numbness, Denies radiating pain into limb and Denies tingling Neuro Denies abnormal gait, Denies dizziness, Denies syncope, Denies numbness, Denies tingling and Denies weakness Endo Reports palpitations Physical Exam Vital Signs: Last Vital Signs Pulse 66 06/23/23 09:08 BP 148/66 H 06/23/23 09:08 BMI result Body Mass Index 27.1 Const General: cooperative, healthy appearing, comfortable and no acute distress Orientation/consciousness: patient oriented x3 Neck Neck: Yes normal visual inspection and Yes no JVD Resp Effort & Inspection: normal respiratory effort Auscultation: clear to auscultation bilaterally, no crackles, no rales, no rhonchi and no wheezes Cardio Jugular venous distension: no JVD Rate: regular rate Rhythm: regular rhythm Heart sounds: S1 normal heart sound present, S2 normal heart sound present, no murmurs and no rubs Neuro General: patient oriented x3 Extrem General: Yes normal to inspection, No no pedal edema and No calf tenderness Psych Appearance: grossly normal Mental Status: mental status grossly normal Speech and movement: Normal speech and movement present Office Procedures EKG Details: Today, read by me, sinus rhythm, first-degree AV block, inferior Q-waves which are different from prior EKG, anterior Q-waves which are same as prior EKG, rate 66, QTC 402 milliseconds [id number], Complete Assessment & Plan Assessment & Plan (1) Palpitations: Code(s): R00.2 - Palpitations Plan: Reports of heart palpitations described as tachycardia. She can feel her heart going fast. No presyncope, syncope, falls. No associated shortness of breath or chest discomfort with this symptom. She is on metoprolol XL 25 mg daily and reports compliance. Last echo 2019. Will order echocardiogram to reassess for any structural heart disease. Will order a Holter monitor to assess for arrhythmia. Instructed to maintain good hydration. Take meds as directed. Cardiology follow-up in 4-6 weeks, sooner if needed. (2) Chest discomfort: Code(s): R07.89 - Other chest pain Plan: Prior Reports of chest discomfort with activity and rest, sob and fatigue with activity. Atypical CP with radiation to right arm which relieves with movement of right arm. No known Hx of CAD. Does have cardiac risk factors of age, HTN, HLD, DM. Nuclear stress test 12/02/19 shows normal myocardial perfusion imaging. Echo done 12/02/19 shows EF 65-70%, mild diastolic dysfunction. CTA of coronaries done on 01/08/21 shows Normal LM, RCA, LCx, her LAD does show tiny calcified plaque with no visable stenosis. Today she reports sharp chest discomfort occurring randomly and lasting minutes before resolving. This discomfort still seems atypical for angina. EKG done today is showing sinus rhythm with first- degree AV block, possible Q-waves inferiorly and anteriorly. Anterior Q-waves unchanged from prior EKG, rate 66. Will be checking echocardiogram as above. No Plan for repeat stress test at present. Signs of angina reviewed with her. Emergency care if ever needed for symptoms. Continue current med management including aspirin, atorvastatin, metoprolol. (3) Essential hypertension: Code(s): I10 - Essential (primary) hypertension Plan: Mild elevation today. No med changes made. Continue enalapril, hydrochlorothiazide, metoprolol. (4) Other and unspecified hyperlipidemia: Code(s): E78.5 - Hyperlipidemia, unspecified Plan: LDL goal < 70 in pt with diabetes. No recent lipid profile in the system. This is normally followed by her PCP. Continue Atorvastatin. Plan Time spent with chart review, documentation, interview and assessment Orders: Orders CA echo transthoracic complete Today R00.2 - Palpitations ECG 3 day holter monitor Today R00.2 - Palpitations Coding Level of Care Code Est Pt Level 4 (15932) Diagnoses Palpitations R00.2 Chest discomfort R07.89 Essential hypertension I10 Other and unspecified hyperlipidemia E78.5 CPT Codes EKG - CPT: [id number], Complete ([id number]) Time Spent (min) 28
[2023-06-23 09:08] VITALS: BP 148/66; PULSE 66; BMI 27.1
== END 2023-06-23 09:39 | disposition home or self-care (01) ==
PROVIDERS: PCP Internal Medicine Geriatric Medicine; Visit Provider Nurse Practitioner Family
DX: R00.2 Palpitations (principal); R07.89 Other chest pain; I10 Essential (primary) hypertension; E78.5 Hyperlipidemia, unspecified
CPT/HCPCS: 93010; 99214

== ENCOUNTER 2023-07-07 11:17 | Outpatient (AMB) | payer OTHER, SELFPAY ==
--- NOTE | 2023-07-07 11:20 | A.OFFVIS_ITS ---
Intake Vital Signs 07/07/23 11:21 Height 5 ft 2 in Weight 145 lb 15.136 oz BMI 26.7 BP 131/61 Blood Pressure Location Lt brachial Position Sitting Pulse 74 Intake Visit Reasons: 3 month follow up Intake Note: Patient here for 3m f/u constipation. Patient reports mild improvement with docusate. Enrolled Agent Required: Yes Accompanied by: Self / Same As Patient Allergies No Known Allergies Allergy (Verified 07/07/23 11:25) HPI 3 month follow up HPI Details Assessment & Plan (1) Constipation: Code(s): K59.00 - Constipation, unspecified Plan: This will be her 1st colonoscopy. She continues to strain with her BM's and describes to me a process whereby she will feel the stool like it wants to come out of my front, and I have to make a fist to push from the outside to reposition the stool so it can come out. This describes a rectal prolapse. She can not take the bisacodyl every day at 2 tabs but this will cause diarrhea that is so severe that se has to take imodium. She will take 1 tablet about twice a week to keep the stools moving. She also has urinary urgency and has to run to the BR as soon as she feels the urge, she has nocturnal frequency taht she tries to control by not drinking later in the day (which does not help with the CIC). She has never had a colonoscopy so we will schedule this but it is not usually definitive in dx for CIC which was her concern. She IS agreeable to a referral to [facility] [employer] [facility] to be evaluated for rectal prolapse. She was educated that she may need surgical correction in terms of bladder etc. to fix. We will cross that bridge depending on the going forward. There are no prior problems with anesthesia or sedation. She has asthma that is controlled and experiences palpitations but she has been told her heart is fine. No ID problems. There is no known family history of colon cancer or polyps. Return office visit in 3 months and after her colonoscopy. (2) GERD (gastroesophageal reflux diseas e): Code(s): K21.9 - Gastro-esophageal reflux disease without esophagitis (3) Rectal prolapse: Comment: ? prolapse causing difficulty in controlling u r ine and CIC Code(s): K62.3 - Rectal prolapse (4) Pre-op examination: Code(s): Z01.818 - Encounter for other preprocedural examination Plan This will be her 1st colonoscopy. She continues to strain with her BM's and describes to me a process whereby she will feel the stool like it wants to come out of my front, and I have to make a fist to push from the outside to reposition the stool so it can come out. This describes a rectal prolapse. She can not take the bisacodyl every day at 2 tabs but this will cause diarrhea that is so severe that se has to take imodium. She will take 1 tablet about twice a week to keep the stools moving. She also has urinary urgency and has to run to the BR as soon as she feels the urge, she has nocturnal frequency that she tries to control by not drinking later in the day (which does not help with the CIC). She has never had a colonoscopy so we will schedule this but it is not usually definitive in dx for CIC which was her concern. She IS agreeable to a referral to [facility] [facility] to be evaluated for rectal prolapse. She was educated that she may need surgical correction in terms of bladder etc. to fix. We will cross that bridge depending on the going forward. There are no prior problems with anesthesia or sedation. She has asthma that is controlled and experiences palpitations but she has been told her heart is fine. No ID problems. There is no known family history of colon cancer or polyps. Return office visit in 3 months and after her colonoscopy. Orders: Orders Comprehensive Met. Panel Today Z01.818 - Encounte r for other prepro cedural examinatio n Colonoscopy - GI U se Only Today Complete Blood Cou nt Auto Diff Today Z01.818 - Encounte r for other prepro cedural examinatio n Referrals [employer] Referral K62.3 - Rectal pro lapse Medications: New sodium,potassium,m ag sulfates 17.5-3 .13-1.6 gram (Supr ep Bowel Prep Kit) 480 mL orally; 3 54 mL 0RF colonosc opy LABS: Laboratory Tests 04/05/23 10:58 WBC 8.2 Hgb 13.7 Hct 41.7 Plt Count 230 Estimated GFR 39 Total Bilirubin 0.7 AST 24 ALT 26 Alkaline Phosphata se 78 COLONOSCOPY BIOPSY TODAY'S VISIT Wolof #Debby Driver The procedure seems to be help up over the PA fro Suprep. She is taking 1 of the bisacodyl when I feel constipated, and it works. She is complaining that if she eats larger amts as I would like she will have a stomach ache. She does better if she eats smaller amts but I get very hungry. She feels her digestion is very slow and I inform her that eating smaller, but more frequent meals with healthful snacking is needed as she age. If this does not help improve her eating could consider reglan however had 09/13/21 GES: IMPRESSION: Normal 4-hour solid food gastric emptying study. ROV 3 mos. PFS Medical History Irritable bowel syndrome with diarrhea Other and unspecified hyperlipidemia Essential hypertension Type 2 diabetes mellitus with unspecified complications Urgency of micturition Urge incontinence Urgency incontinence Surgical History History of esophagogastroduodenoscopy (EGD) History of section Family History Father No problems noted. Mother No problems noted. Social History Patient Tobacco Use Status: Former Tobacco user Tobacco use type: Cigarette Review of Systems Const Denies fatigue, Denies fever(s), Denies night sweats, Denies poor appetite and Denies weight loss Eyes Details: glasses Reports requires corrective lenses ENT Reports Normal hearing present, Denies dental pain, Denies dysphagia, Denies hearing loss, Denies mouth pain, Denies odynophagia, Denies throat swelling, Denies tongue swelling and Reports other (Dentition adequate) Card Reports no additional complaints Resp Reports no additional complaints GI Details: Denies abdominal pain, Denies melena, Denies bloating, Denies hematochezia, Reports constipation, Denies GI cramping, Denies dysphagia, Denies excessive flatus, Denies early satiety, Reports heartburn, Denies diarrhea, Denies nausea, Denies odynophagia, Denies vomiting and Denies hematemesis Skin/Breast Denies pruritus, Denies lesions, Denies rash and Denies jaundice Neuro Reports Normal hearing present and Denies Abnormal speech present Endo Denies fatigue Aller/Immun Denies throat swelling and Denies tongue swelling Physical Exam Vital Signs: Last Vital Signs Pulse 74 07/07/23 11:21 BP 131/61 07/07/23 11:21 BMI result Body Mass Index 26.7 Const General: cooperative, no acute distress, well developed and well groomed Nutritional Appearance: average body habitus and well nourished Orientation/consciousness: oriented to person, oriented to place and oriented to time Limitations: language barrier HEENT Head: Yes normocephalic and Yes atraumatic Eyes General: appearance normal, both eyes and all related structures Pupils: Equal, round and reactive pupils present Neck Neck: Yes normal visual inspection and Yes no lymphadenopathy Thyroid: Thyroid normal Resp Effort & Inspection: normal respiratory effort and able to speak in complete sentences Auscultation: clear to auscultation bilaterally Cardio Rate: regular rate Rhythm: regular rhythm Heart sounds: Normal, physiologic split S2 sound present Peripheral pulses: radial pulses present and posterior tibial pulses present GI Inspection: No distended and No Abdominal panniculus present Palpation (GI): Soft to palpation, nontender, no guarding, not rigid and No hepatosplenomegaly present Percussion: Yes normal to percussion Auscultation: normal bowel sounds Rectal Exam - Female: deferred Skin General skin exam: no rashes or lesions noted, turgor normal, skin not dry, no jaundice, No spider nevi and no striae Rashes: no rashes Nails: normal Neuro General: oriented to person, oriented to place and oriented to time Cranial nerves: Yes Equal, round and reactive pupils present and Yes Normal hear ing present Speech: No Abnormal speech present Extrem General: Yes normal to inspection, No clubbing, No cyanosis and No edema Psych Appearance: grossly normal and well kempt Mental Status: mental status grossly normal Speech and movement: Normal speech and movement present Affect: normal affect Attitude: cooperative Thought process: Normal thought process present and not confabulating Thought content: Normal thought content present Insight: Limited insight present (Psych) Judgement: Limited judgement present (Psych) Results Reviewed Results Reviewed: Laboratory Tests 04/05/23 10:58 WBC 8.2 Hgb 13.7 Hct 41.7 Plt Count 230 Estimated GFR 39 Total Bilirubin 0.7 AST 24 ALT 26 Alkaline Phosphatase 7 Assessment & Plan Assessment & Plan (1) Irritable bowel syndrome with both constipation and diarrhea: Code(s): K58.2 - Mixed irritable bowel syndrome (2) Bleeding hemorrhoids: Code(s): K64.9 - Unspecified hemorrhoids (3) GERD (gastroesophageal reflux disease): Code(s): K21.9 - Gastro-esophageal reflux disease without esophagitis (4) Constipation: Code(s): K59.00 - Constipation, unspecified Plan [facility] Live The procedure seems to be help up over the PA fro Suprep. She is taking 1 of the bisacodyl when I feel constipated, and it works. She is complaining that if she eats larger amts as I would like she will have a stomach ache. She does better if she eats smaller amts but I get very hungry. She feels her digestion is very slow and I inform her that eating smaller, but more frequent meals with healthful snacking is needed as se age. If this does not help improve her eating could consider reglan however had 09/13/21 GES: IMPRESSION: Normal 4-hour solid food gastric emptying study. ROV 3 mos. COLONOSCOPY BIOPSY Medications: Refilled docusate sodium (Colace) 100 mg PO .DAILY WITH FOOD 30 caps 6RF 30 days rabeprazole (AcipHex) 20 mg PO BID 60 tabs 6RF K21.9 - Gastro-esophageal reflux disease without esophagitis bisacodyl 10 mg (2 x 5 mg) PO BEDTIME 60 tabs 6RF K59.00 - Constipation, unspecified Coding Level of Care Code Est Pt Level 3 (73219) Diagnoses Irritable bowel syndrome with both constipation and diarrhea K58.2 Bleeding hemorrhoids K64.9 GERD (gastroesophageal reflux disease) K21.9 Constipation K59.00
[2023-07-07 11:21] VITALS: BP 131/61; PULSE 74; BMI 26.7
== END 2023-07-07 12:07 | disposition home or self-care (01) ==
PROVIDERS: PCP Internal Medicine Geriatric Medicine; Visit Provider Nurse Practitioner
DX: K58.2 Mixed irritable bowel syndrome (principal); K64.9 Unspecified hemorrhoids; K21.9 Gastro-esophageal reflux disease without esophagitis; K59.00 Constipation, unspecified
CPT/HCPCS: 99213

== ENCOUNTER → 2023-07-07 11:17 | Outpatient (BNVA) | payer OTHER, SELFPAY | PROVIDERS: PCP Internal Medicine Geriatric Medicine; Visit Provider Nurse Practitioner | DX: K58.2 Mixed irritable bowel syndrome (principal); K64.9 Unspecified hemorrhoids; K21.9 Gastro-esophageal reflux disease without esophagitis; K59.00 Constipation, unspecified | CPT/HCPCS: 99212 ==

== ENCOUNTER → 2023-07-19 07:45 | Outpatient (REF) | payer OTHER, SELFPAY ==
--- NOTE | 2023-07-19 07:48 | HM_ITS ---
Conclusion: 1. Patient was monitored for total period of 1 day and 16 hours 2. Baseline was normal sinus rhythm with average heart of 71 beats per minute 3. Occasional PACs noted 4. No significant pauses noted 5. No patient reported cardiac symptoms MTDD
--- NOTE | 2023-07-19 07:48 | CA_ITS ---
Transthoracic Echocardiogram Patient (Last, First, Middle): Veda Matias, Gender: Female Date of : 1945 Age: 78 Procedure Date: 07/19/2023 Procedure Type: Transthoracic Echocardiogram Location: OP Height: 157.48 cm Weight: 66.23 kg BSA: 1.67 m2 Heart Rate: bpm BP: 118 / 60 mmHg Radiation Oncologist: ELIDA Referring MD: Sabi Emerson [employer]: Ulises Canales MD Symptoms: R00.2 - Palpitations Study Quality: Fair ECG Rhythm: Sinus Conclusions: - 1. Normal LV ejection fraction of 60 65% with mild LVH with impaired relaxation filling pattern 2. Trace aortic regurgitation 3. Normal RV systolic pressure 4. No pericardial effusion Findings Left Ventricle Normal left ventricular size and systolic function. There is mildly increased left ventricular wall thickness. The visually estimated ejection fraction is between 60-65%. Spectral Doppler is indicative of an impaired relaxation filling pattern. E/E prime ratio is between 8 and 15 consistent with indeterminate filling pressures. Right Ventricle Normal right ventricular cavity size and systolic function. Atria The left atrium is normal in size. Interatrial shunt cannot be excluded. The right atrium is normal in size. Aortic Valve There is mild calcification of the aortic valve. There is mild thickening of the aortic valve. There is no aortic valve stenosis. There is trace (trivial) aortic valve regurgitation. Mitral Valve There is mild anterior and posterior mitral leaflet thickening. There is mild mitral annular calcification. There is trace mitral valve regurgitation. There is no mitral valve stenosis. Pulmonic Valve The pulmonic valve was not well visualized. Tricuspid Valve Likely normal tricuspid valve structure and function. There is trace tricuspid valve regurgitation. The right ventricular systolic pressure is normal. The right ventricular systolic pressure is 15 mmHg. Normal right atrial pressure. There is no evidence of pulmonary hypertension. Great Vessels All visible segments of the aorta are normal in size. The pulmonary artery was not well visualized. Venous The inferior vena cava is normal in size and collapses greater than 50% with inspiration. Pericardium/Pleural There is no evidence of pericardial effusion. Prior Study Comparison No significant change compared to prior study dated: 11/13/2019. Measurements 2D Linear Measurements IVSd: 1.25 0.6-0.9/0.6-1.0 cm LVIDd: 3.35 3.9-5.3/4.2-5.9 cm LVIDd Index: 2.01 2.4-3.2/2.2-3.1 cm/m2 LVIDs: 2.10 2.0-3.6 cm LVPWd: 1.25 0.7-1.1 cm Ao Root: 3.20 2.1-3.5 cm LA Diam: 3.00 2.7-3.8/3.0-4.0 cm LAIDs Index: 1.80 1.5-2.3 cm/m2 LV Mass: 169.11 67-162/88-224 g LV Mass Index: 101.26 43-95/49-115 g/m2 LVOT Diam: 1.80 3.0+(-)1.3 cm 2D Systolic Function EF 4C: 65.20 >55% EF 2C: 61.40 >55% EF BiP: 63.70 >55% Mitral Valve MV Pk E: 0.45 MV PK A: 0.72 MV Decel Time: 195.00 E/A: 0.60 E'Lateral: 7.07 E'Medial: 5.00 E/E' Med: 9.10 E/E' Lat: 6.40 PHT: 57.00 MVA PHT: 3.86 Decel [place]: 2.33 Aortic Valve AoV Pk Johnson: 1.45 AoV Mn Johnson: 0.86 AoV VTI: 0.30 AoV Pk Grad: 8.00 Aov Mn Grad: 3.00 JUANY Cont.VTI: 1.91 LVOT LVOT Pk Johnson: 0.98 LVOT Mn Johnson: 0.62 LVOT VTI: 0.23 LVOT Pk Grad: 4.00 LVOT Mn Grad: 2.00 LVOT Diam: 1.80 LVOT Area: 2.54 Diastolic Function MV Pk E: 0.45 MV Pk A: 0.72 E/A: 0.60 E'Medial: 5.00 E/E' Med: 9.10 E' Laterial: 7.07 E/E' Lat: 6.40 Right Ventricle TAPSE (mm): 21.00 TVS' Johnson: 11.00 Tricuspid Valve TR Pk Johnson: 1.71 TR Pk Grad: 12.00 RA Press: 3.00 RVSP: 15.00 Great Vessels Aorta Ao Root-2D: 3.20 2.0-3.7 cm Ao Asc: 3.10 2.1-3.4 cm Pulmonary Valve PV Pk Johnson: 1.03 Peak PV Grad: 4.00 Updated in Other Vendor System with Status of Final Ulises Canales MD electronically signed on 07/19/2023 1:57:16 PM with status of Final
== END ==
LOC: HO.CARD 07:45
PROVIDERS: PCP Internal Medicine Geriatric Medicine; Visit Provider Nurse Practitioner Family
DX: R00.2 Palpitations (principal)
CPT/HCPCS: 93242; 93306

== ENCOUNTER → 2023-07-19 07:48 | Outpatient (BNV) | payer OTHER, SELFPAY | PROVIDERS: PCP Internal Medicine Geriatric Medicine; Visit Provider Internal Medicine Cardiovascular Disease | DX: I49.1 Atrial premature depolarization (principal) | CPT/HCPCS: 93244; 93306 ==

== ENCOUNTER 2023-08-02 10:04 | Outpatient (AMB) | payer OTHER, SELFPAY ==
[2023-08-02 10:10] VITALS: BP 128/74; BMI 26.6
--- NOTE | 2023-08-02 10:10 | MHC.OFFVIS ---
Intake Vital Signs 08/02/23 10:10 Height 5 ft 2 in Weight 145 lb 8.081 oz BMI 26.6 BP 128/74 Intake Visit Reasons: prolapse/DO NOT RS Video Surveillance Technician Required: Yes Video Surveillance Technician Language: Rod Greaser Name: Christina AKBAR Information Interpreted: non-clinical & clinical Svp Of Digital: Svp Of Digital Present (Christina AKBAR) Allergies No Known Allergies Allergy (Verified 08/02/23 10:16) Post menopausal: Yes HPI HPI Comments History of Present Illness Details Presenting complaining of soft tissue around the perineum upon straining during bowel movement. No urine incontinence; [facility] Medical History Irritable bowel syndrome with diarrhea Other and unspecified hyperlipidemia Essential hypertension Type 2 diabetes mellitus with unspecified complications Urgency of micturition Urge incontinence Urgency incontinence Surgical History History of esophagogastroduodenoscopy (EGD) History of section Family History Father No problems noted. Mother No problems noted. Social History Household Members: None Housing: Apartment Alcohol intake: never Patient Tobacco Use Status: Former Tobacco user Tobacco use type: Cigarette Years Smoked: 10 Current occupational status: disabled Sexual orientation: Straight/Heterosexual Gender identity: Female Female Reproductive History Menstrual Menopause type: natural Total pregnancies: 2 Full term: 1 Number of Living Children: 1 Ab spontaneous: 1 Review of Systems Const All systems reviewed & are unremarkable except as noted in HPI and below Physical Exam Vital Signs: Last Vital Signs BP 128/74 08/02/23 10:10 BMI result Body Mass Index 26.6 General: Yes no CVA tenderness External Female Exam: normal external appearance and normal appearance of the urethra Speculum Exam - Vagina: normal appearance of the vagina, normal palpation, no lesions and no masses Speculum Exam - Cervix: normal appearance of the cervix, normal palpation, no lesions, no masses and nontender Bimanual exam- vagina & uterus: normal bimanual exam, normal palpation, uterine size normal, normal palpation, uterine shape normal, No Cervical tenderness present and non-tender Bimanual Exam- Adnexa, other: normal adnexae Back/Spine/Pelvis Back: no CVA tenderness Assessment & Plan Assessment & Plan (1) Constipation: Code(s): K59.00 - Constipation, unspecified Plan: Discussed with the patient the normal finding on pelvic exam with no evidence of cystocele, rectocele or uterine prolapse, recommended to contact her PCP for further management regarding constipation. All questions answered, the patient verbalized understanding Coding Level of Care Code New Pt Level 3 (22592) Diagnoses Constipation K59.00
== END 2023-08-02 11:58 | disposition home or self-care (01) ==
PROVIDERS: PCP Internal Medicine Geriatric Medicine; Visit Provider Obstetrics & Gynecology
DX: K59.00 Constipation, unspecified (principal)
CPT/HCPCS: 99203

== ENCOUNTER → 2023-08-02 10:04 | Outpatient (BNVA) | payer OTHER, SELFPAY | PROVIDERS: PCP Internal Medicine Geriatric Medicine; Visit Provider Obstetrics & Gynecology | DX: K59.00 Constipation, unspecified (principal) | CPT/HCPCS: 99202 ==

== ENCOUNTER 2023-08-04 08:54 | Outpatient (AMB) | payer OTHER, SELFPAY ==
--- NOTE | 2023-08-04 08:59 | MHC.OFFVIS ---
Intake Vital Signs 08/04/23 09:01 Height 5 ft 2 in Weight 145 lb 1.027 oz BMI 26.5 BP 118/68 Blood Pressure Location Lt brachial Position Sitting Pulse 64 Pulse Source Monitor Intake Visit Reasons: 6 week fu after holter & echo Intake Note: PT OV 6 week follow up after holter and echo PT is having chest pain Platform Inspector Required: Yes Platform Inspector Name: CONNIE [id number] Allergies No Known Allergies Allergy (Verified 08/02/23 10:16) Medication List - Last Reconciled 08/04/23 by NISREEN Baldwin alcohol swabs (Alcohol Prep Pads) pad topical BID aspirin 81 mg PO DAILY atorvastatin 40 mg PO DAILY bisacodyl 10 mg (2 x 5 mg) PO BEDTIME blood sugar diagnostic (FreeStyle Lite Strips) As directed bupropion HCl 300 mg PO DAILY clotrimazole 1% appl topical docusate sodium (Colace) 100 mg PO .DAILY WITH FOOD 30 days doxepin 10 mg PO DAILY dulaglutide (Trulicity) mg subcut QWEEK empagliflozin (Jardiance) 25 mg PO DAILY enalapril maleate 20 mg PO DAILY hydrochlorothiazide 25 mg PO DAILY hydrocortisone acetate (Anusol-HC) 25 mg CA BID insulin aspart U-100 (Novolog FlexPen U-100 Insulin aspart) 20 units subcut TID insulin degludec (Tresiba FlexTouch U-200 insulin) 68 units subcut QPM insulin syringe-needle U-100 As directed metoprolol succinate ER 25 mg PO DAILY mirabegron ER (Myrbetriq) 25 mg PO DAILY 30 days mirtazapine 7.5 mg PO BEDTIME nabumetone 500 mg PO BID nystatin 1 appl topical BID rabeprazole (AcipHex) 20 mg PO BID sertraline 50 mg PO DAILY sodium,potassium,mag sulfates 17.5-3.13-1.6 gram (Suprep Bowel Prep Kit) 480 mL orally; trazodone 50 mg PO BEDTIME PRN HPI 6 week fu after holter & echo HPI Details Veda is a 78-year-old female past medical history of hypertension, hyperlipidemia, diabetes, chest discomfort followed by normal CTA of the coronary arteries who reported heart palpitations on last visit. She underwent an echocardiogram and Holter monitor and now presents for follow-up. Today she states that she is experiencing discomfort in her right posterior shoulder. The area is painful to touch and worse if she moves her right arm. She says this has been present for about a week and she has been taking Tylenol. She has some mild shortness of breath which she says is not new. She is currently not bothered by heart palpitations like she reported last visit. She is not having chest discomfort at rest or with activity. No lightheadedness, presyncope, syncope, PND, orthopnea or edema. Reports she takes her meds as directed. Certified foreign language interpreter used. COUNTS INCLUDE 234 BEDS AT THE [facility] Medical History Irritable bowel syndrome with diarrhea Other and unspecified hyperlipidemia Essential hypertension Type 2 diabetes mellitus with unspecified complications Urgency of micturition Urge incontinence Urgency incontinence Surgical History History of esophagogastroduodenoscopy (EGD) History of section Family History Father No problems noted. Mother No problems noted. Social History Household Members: None Housing: Apartment Alcohol intake: never Patient Tobacco Use Status: Former Tobacco user Tobacco use type: Cigarette Years Smoked: 10 Current occupational status: disabled Sexual orientation: Straight/Heterosexual Gender identity: Female Review of Systems Const All systems reviewed & are unremarkable except as noted in HPI and below Denies weakness ENT Denies dizziness Card Denies chest pain, Denies chest pain with activity, Denies syncope, Denies rapid heart rate, Denies pedal edema, Denies edema, Denies leg edema, Denies lightheadedness, Denies palpitations, Reports dyspnea, Denies dyspnea on exertion and Denies orthopnea Resp Denies cough, Reports dyspnea and Denies dyspnea on exertion GI Denies hematochezia and Denies change in stool character Musc Details: right posterior shoulder pain Denies abnormal gait, Denies muscle cramps, Denies muscle weakness, Denies numbness, Denies radiating pain into limb and Denies tingling Neuro Denies abnormal gait, Denies dizziness, Denies syncope, Denies numbness, Denies tingling and Denies weakness Endo Denies palpitations Physical Exam Vital Signs: Last Vital Signs Pulse 64 08/04/23 09:01 BP 118/68 08/04/23 09:01 BMI result Body Mass Index 26.5 Const General: cooperative, healthy appearing, comfortable and no acute distress Orientation/consciousness: patient oriented x3 Neck Neck: Yes normal visual inspection and Yes no JVD Resp Effort & Inspection: normal respiratory effort Auscultation: clear to auscultation bilaterally, no crackles, no rales, no rhonchi and no wheezes Cardio Jugular venous distension: no JVD Rate: regular rate Rhythm: regular rhythm Heart sounds: S1 normal heart sound present, S2 normal heart sound present, no murmurs and no rubs Neuro General: patient oriented x3 Extrem General: Yes normal to inspection, No no pedal edema and No calf tenderness Psych Appearance: grossly normal Mental Status: mental status grossly normal Speech and movement: Normal speech and movement present Office Procedures EKG Details: today, read by me, SR, 1st degree avb, septal infarct, rate 64, QTc 394ms [id number], Complete Assessment & Plan Assessment & Plan (1) Palpitations: Code(s): R00.2 - Palpitations Plan: On last visit reported heart palpitations described as tachycardia. She can feel her heart going fast. No presyncope, syncope, falls. No associated shortness of breath or chest discomfort with this symptom. She is on metoprolol XL 25 mg daily and reports compliance. Echocardiogram was done on 07/19/2023 showing EF 60-65%, mild LVH and impaired relaxation. A Holter monitor was done on 07/19/2023 for 1 0.5 days showing sinus rhythm with average heart rate 71, occasional PACs. Test results reviewed with her. She is currently denying any concerning palpitations. Offered reassurance. Instructed to maintain good hydration. Take meds as directed. Cardiology follow-up in 6 months, sooner if needed. (2) Chest discomfort: Code(s): R07.89 - Other chest pain Plan: In the past has reported chest discomfort. No known Hx of CAD. Does have cardiac risk factors of age, HTN, HLD, DM. Nuclear stress test 12/02/19 showed normal myocardial perfusion imaging. CTA of coronaries done on 8/27/21 shows Normal LM, RCA, LCx, her LAD does show tiny calcified plaque with no visable stenosis. At time she is denying chest discomfort. She does report right shoulder discomfort which seems musculoskeletal related. Informed her she can further discuss with PCP if this continues. EKG done today shows sinus rhythm with first-degree AV block, septal Q-wave which is present on prior EKGs as well. Signs and symptoms of angina reviewed with her. Emergency care if ever needed for symptoms. Continue current med management including aspirin, atorvastatin, metoprolol. (3) Essential hypertension: Code(s): I10 - Essential (primary) hypertension Plan: Mild elevation today. No med changes made. Continue enalapril, hydrochlorothiazide, metoprolol. (4) Other and unspecified hyperlipidemia: Code(s): E78.5 - Hyperlipidemia, unspecified Plan: LDL goal < 70 in pt with diabetes. No recent lipid profile in the system. This is normally followed by her PCP. Continue Atorvastatin. Plan Time spent with chart review, documentation, interview and assessment Coding Level of Care Code Est Pt Level 3 (71436) Diagnoses Palpitations R00.2 Chest discomfort R07.89 Essential hypertension I10 Other and unspecified hyperlipidemia E78.5 CPT Codes EKG - CPT: [id number], Complete ([id number]) Time Spent (min) 24
[2023-08-04 09:01] VITALS: BP 118/68; PULSE 64; BMI 26.5
== END 2023-08-04 09:44 | disposition home or self-care (01) ==
PROVIDERS: PCP Internal Medicine Geriatric Medicine; Visit Provider Nurse Practitioner Family
DX: R00.2 Palpitations (principal); R07.89 Other chest pain; I10 Essential (primary) hypertension; E78.5 Hyperlipidemia, unspecified
CPT/HCPCS: 93010; 99213

== ENCOUNTER → 2023-08-04 08:54 | Outpatient (BNVA) | payer OTHER, SELFPAY | PROVIDERS: PCP Internal Medicine Geriatric Medicine; Visit Provider Nurse Practitioner Family | DX: I10 Essential (primary) hypertension (principal); E78.5 Hyperlipidemia, unspecified; R06.02 Shortness of breath; R00.2 Palpitations; R07.89 Other chest pain | CPT/HCPCS: 93005; 99212 ==

== ENCOUNTER 2023-09-18 07:56 | Outpatient (REF) | payer OTHER, SELFPAY ==
--- NOTE | ~2023-09-18 | CT_ITS ---
EXAMINATION: CT CHEST WITHOUT CONTRAST CLINICAL INFORMATION: Abnormal finding of lung field COMPARISON: Chest CT 06/29/2022 TECHNIQUE: Multidetector volumetric CT imaging of the chest was done. Axial MIP volume rendering provided. Sagittal and coronal reformatted images were obtained. This CT examination was performed using dose optimization techniques as appropriate, variously including the following: *Automated exposure control *Adjustment of mA and/or kV according to patient size (this includes techniques or standardized protocols for targeted exams where dose is matched to indication/reason for exam; i.e. extremities or head) *Use of iterative reconstruction technique DLP: 169 mGy-cm FINDINGS: Central airways are patent. Lungs are well aerated. There is mild dependent atelectasis present. Some minimal lingular atelectasis is also suspected. There is no lobar consolidation. No pleural effusion or pneumothorax. Numerous previously identified calcified and noncalcified pulmonary nodules are stable, largest noncalcified being a 4 mm left upper lobe pulmonary nodule (image [id number], series 5). No new suspicious pulmonary nodules visualized. The heart is normal in size. Coronary artery calcifications are present. There is no pericardial effusion. Normal caliber thoracic aorta. No gross mediastinal or hilar lymphadenopathy appreciated on today's noncontrast imaging. No pathologically enlarged axillary lymph nodes. Visualized portion of the upper abdomen demonstrate a tiny hiatal hernia. Moderate diffuse degenerative changes of the spine. CT/CT chest wo IV con IMPRESSION: Numerous previously identified calcified and noncalcified pulmonary nodules are stable, largest noncalcified being a 4 mm left upper lobe pulmonary nodule. No new suspicious pulmonary nodules visualized. Fleischner guidelines were followed.
== END 2023-09-18 07:57 | disposition home or self-care (01) ==
LOC: HO.CT 07:56
PROVIDERS: PCP Internal Medicine Geriatric Medicine; Visit Provider Internal Medicine Pulmonary Disease
DX: R91.8 Other nonspecific abnormal finding of lung field (principal)
CPT/HCPCS: 71250

== ENCOUNTER 2023-10-06 08:52 | Outpatient (AMB) | payer OTHER, SELFPAY ==
[2023-10-06 08:58] VITALS: BP 139/68; PULSE 81; BMI 27.3
--- NOTE | 2023-10-06 08:58 | MHC.OFFVIS ---
Vital Signs 10/06/23 08:58 Height 5 ft 2 in Weight 149 lb 7.574 oz BMI 27.3 BP 139/68 Blood Pressure Location Lt brachial Position Sitting Pulse 81 Intake Visit Reasons: 3 month follow up CIC, gerd Intake Note: Patient presents in office today for 3 months follow up of CIC. CC: Patient states that she believe her symptoms might be related to something emotional . She states that she is taking her medication but is feeling. Team Physician Required: Yes Accompanied by: Self / Same As Patient Allergies No Known Allergies Allergy (Verified 10/06/23 09:06) HPI HPI 3 month follow up CIC, gerd: Details: Assessment & Plan (1) Irritable bowel syndrome with both constipation and diarrhea: Code(s): K58.2 - Mixed irritable bowel syndrome (2) Bleeding hemorrhoids: Code(s): K64.9 - Unspecified hemorrhoids (3) GERD (gastroesophageal reflux disease): Code(s): K21.9 - Gastro-esophageal reflux disease without esophagitis (4) Constipation: Code(s): K59.00 - Constipation, unspecified Plan [place] #Debby Live The procedure seems to be help up over the PA michael Nieves. She is taking 1 of the bisacodyl when I feel constipated, and it works. She is complaining that if she eats larger amts as I would like she will have a stomach ache. She does better if she eats smaller amts but I get very hungry. She feels her digestion is very slow and I inform her that eating smaller, but more frequent meals with healthful snacking is needed as se age. If this does not help improve her eating could consider reglan however had 09/13/21 GES: IMPRESSION: Normal 4-hour solid food gastric emptying study. ROV 3 mos. Medications: Refilled docusate sodium (Colace) 100 mg PO .DAILY WITH FOOD 30 caps 6RF 30 days rabeprazole (AcipHex) 20 mg PO BID 60 tabs 6RF K21.9 - Gastro-esophageal reflux disease without esophagitis bisacodyl 10 mg (2 x 5 mg) PO BEDTIME 60 tabs 6RF K59.00 - Constipation, unspecified LABS: COLONOSCOPY BIOPSY TODAY'S VISIT [place] #Ammy Live As her symptoms continue I think we will do a trial of Reglan as she may have a problem with small bowel motility. I explained the medication how to take it and what adverse effects when necessitate discontinuance. She continues on her rabeprazole 20 mg twice a day, bisacodyl, and Colace. Return office visit in 4 weeks to evaluate her response. [facility] Medical History (Updated 10/06/23 @ 09:34 by RHYS Good) Pre-op examination Dyspnea on exertion Urgency of micturition Shortness of breath Chest discomfort Irritable bowel syndrome with diarrhea Other and unspecified hyperlipidemia Essential hypertension Type 2 diabetes mellitus with unspecified complications Surgical History History of esophagogastroduodenoscopy (EGD) History of section Family History Father No problems noted. Mother No problems noted. Social History Household Members: None Housing: Apartment Alcohol intake: never Patient Tobacco Use Status: Former Tobacco user Tobacco use type: Cigarette Years Smoked: 10 Current occupational status: disabled Sexual orientation: Straight/Heterosexual Gender identity: Female Review of Systems Const Denies fatigue, Denies fever(s), Denies night sweats, Denies poor appetite and Denies weight loss Eyes Details: glasses Reports requires corrective lenses ENT Reports Normal hearing present, Denies dental pain, Denies dysphagia, Denies hearing loss, Denies mouth pain, Denies odynophagia, Denies throat swelling, Denies tongue swelling and Reports other (Dentition adequate) Card Reports no additional complaints Resp Reports no additional complaints GI Details: Denies abdominal pain, Denies melena, Reports bloating, Denies hematochezia, Reports constipation, Denies GI cramping, Denies dysphagia, Denies excessive flatus, Reports early satiety, Reports heartburn, Denies diarrhea, Denies nausea, Denies odynophagia, Denies vomiting and Denies hematemesis Skin/Breast Denies pruritus, Denies lesions, Denies rash and Denies jaundice Neuro Reports Normal hearing present and Denies Abnormal speech present Psych Reports anxiety, Reports depression, Reports irritability, Denies homicidal ideation and Denies suicidal ideation Endo Denies fatigue Aller/Immun Denies throat swelling and Denies tongue swelling Physical Exam Vital Signs: Last Vital Signs Pulse 81 10/06/23 08:58 BP 139/68 10/06/23 08:58 BMI result Body Mass Index 27.3 Const General: cooperative, no acute distress, well developed and well groomed Nutritional Appearance: average body habitus and well nourished Orientation/consciousness: oriented to person, oriented to place and oriented to time Limitations: language barrier HEENT Head: Yes normocephalic and Yes atraumatic Eyes General: appearance normal, both eyes and all related structures Pupils: Equal, round and reactive pupils present Neck Neck: Yes normal visual inspection and Yes no lymphadenopathy Thyroid: Thyroid normal Resp Effort & Inspection: normal respiratory effort and able to speak in complete sentences Auscultation: clear to auscultation bilaterally Cardio Rate: regular rate Rhythm: regular rhythm Heart sounds: Normal, physiologic split S2 sound present Peripheral pulses: radial pulses present and posterior tibial pulses present GI Inspection: No distended and No Abdominal panniculus present Palpation (GI): Soft to palpation, nontender, no guarding, not rigid and No hepatosplenomegaly present Percussion: Yes normal to percussion Auscultation: normal bowel sounds Rectal Exam - Female: deferred Skin General skin exam: no rashes or lesions noted, turgor normal, skin not dry, no jaundice, No spider nevi and no striae Rashes: no rashes Nails: normal Neuro General: oriented to person, oriented to place and oriented to time Cranial nerves: Yes Equal, round and reactive pupils present and Yes Normal hearing present Speech: No Abnormal speech present Extrem General: Yes normal to inspection, No clubbing, No cyanosis and No edema Psych Appearance: grossly normal and well kempt Mental Status: mental status grossly normal Speech and movement: Normal speech and movement present Affect: normal affect Attitude: cooperative Thought process: Normal thought process present and not confabulating Thought content: Normal thought content present Insight: Limited insight present (Psych) Judgement: Limited judgement present (Psych) Assessment & Plan Assessment & Plan (1) Delayed gastric emptying: Code(s): K30 - Functional dyspepsia Category: Medical (2) GERD (gastroesophageal reflux disease): Code(s): K21.9 - Gastro-esophageal reflux disease without esophagitis Category: Medical (3) Constipation: Code(s): K59.00 - Constipation, unspecified Category: Medical Plan [place] #Ammy Driver As her symptoms continue I think we will do a trial of Reglan as she may have a problem with small bowel motility. I explained the medication how to take it and what adverse effects when necessitate discontinuance. She continues on her rabeprazole 20 mg twice a day, bisacodyl, and Colace. Return office visit in 4 weeks to evaluate her response. Medications: New metoclopramide HCl (Reglan) 5 mg PO .tidac 90 tabs 3RF K30 - Functional dyspepsia Coding Level of Care Code Est Pt Level 3 (85841) Diagnoses Delayed gastric emptying K30 GERD (gastroesophageal reflux disease) K21.9 Constipation K59.00
== END 2023-10-06 09:40 | disposition home or self-care (01) ==
PROVIDERS: PCP Internal Medicine Geriatric Medicine; Visit Provider Nurse Practitioner
DX: K30 Functional dyspepsia (principal); K21.9 Gastro-esophageal reflux disease without esophagitis; K59.00 Constipation, unspecified
CPT/HCPCS: 99213

== ENCOUNTER → 2023-10-06 08:52 | Outpatient (BNVA) | payer OTHER, SELFPAY | PROVIDERS: PCP Internal Medicine Geriatric Medicine; Visit Provider Nurse Practitioner | DX: K21.9 Gastro-esophageal reflux disease without esophagitis (principal); K59.00 Constipation, unspecified; K30 Functional dyspepsia | CPT/HCPCS: 99212 ==

== ENCOUNTER 2023-11-07 09:35 | Outpatient (AMB) | payer OTHER, SELFPAY ==
[2023-11-07 09:36] VITALS: BP 122/80; PULSE 65; O2SAT 96; BMI 26.9
--- NOTE | 2023-11-07 09:36 | MHC.OFFVIS ---
Vital Signs 11/07/23 09:36 Height 5 ft 2 in Weight 147 lb BMI 26.9 BP 122/80 Blood Pressure Location Rt brachial Position Sitting Pulse 65 Pulse Source Doppler Pulse Oximetry (%) 96 Oxygen Delivery Method Room Air Intake Visit Reasons: COPD Allergies metformin Adverse Reaction (Intermediate, Uncoded 11/07/23 09:42) Diarrhea HPI HPI COPD: Details: 78-year-old lady, remote minimal smoker in her 20s, with underlying history of GERD under GI care followed for asthma and pulmonary nodules. After the last office visit patient states that she was evaluated by inspector boiler and was told that her is doing fine. She did not have a neurology evaluation for underlying tremors. Patient did have follow-up CT chest that showed stable bilateral pulmonary nodules. She denies recent exacerbations. [facility] Medical History (Updated 10/06/23 @ 09:34 by RHYS Good) Pre-op examination Dyspnea on exertion Urgency of micturition Shortness of breath Chest discomfort Irritable bowel syndrome with diarrhea Other and unspecified hyperlipidemia Essential hypertension Type 2 diabetes mellitus with unspecified complications Surgical History History of esophagogastroduodenoscopy (EGD) History of section Family History Father No problems noted. Mother No problems noted. Social History Household Members: None Housing: Apartment Alcohol intake: never Patient Tobacco Use Status: Former Tobacco user Tobacco use type: Cigarette Years Smoked: 10 Current occupational status: disabled Sexual orientation: Straight/Heterosexual Gender identity: Female Review of Systems Const Denies daytime sleepiness, Denies excessive sweating, Denies fatigue, Denies fever(s), Denies lethargy, Denies malaise, Denies night sweats, Denies snoring and Denies weight loss Eyes Denies blurry vision and Denies itchy eyes ENT Denies nasal congestion, Denies post nasal drip, Denies sinus pain, Denies sinus pressure and Denies other ( Thrush) Card Denies chest pain, Denies pedal edema, Denies dyspnea, Denies orthopnea and Denies paroxysmal nocturnal dyspnea Resp Denies cough, Denies hemoptysis, Denies excessive phlegm production, Denies dyspnea, Denies snoring and Denies wheezing GI Denies abdominal pain and Denies heartburn Musc Denies myalgias, Denies arthralgias and Denies joint swelling Skin/Breast Denies rash Neuro Denies memory loss and Denies seizure-like activity Psych Denies abnormal sleep pattern, Denies anxiety and Denies memory loss Endo Denies excessive sweating, Denies fatigue and Denies heat intolerance Kam/Lymph Denies easy bruising Aller/Immun Denies itchy eyes, Denies seasonal rhinorrhea and Denies wheezing Physical Exam Vital Signs: Last Vital Signs Pulse 65 11/07/23 09:36 BP 122/80 11/07/23 09:36 Pulse Ox 96 11/07/23 09:36 Oxygen Delivery Method Room Air 11/07/23 09:36 BMI result Body Mass Index 26.9 Const General: no acute distress and alert Nutritional Appearance: not obese Orientation/consciousness: Other orientation findings ( oriented) HEENT Head: Yes atraumatic Eyes General: appearance normal, both eyes and all related structures Sclerae: sclerae normal EOM: EOMs intact bilaterally Neck Neck: Yes supple Lymphatic: no lymphadenopathy noted Resp Effort & Inspection: normal respiratory effort and no use of accessory muscles Auscultation: clear to auscultation bilaterally Cardio Rate: regular rate Rhythm: regular rhythm Heart sounds: no gallops, no murmurs and no rubs Skin General skin exam: other ( warm) Extrem General: No clubbing, No cyanosis and No edema Assessment & Plan Assessment & Plan (1) Coarse tremors: Code(s): G25.2 - Other specified forms of tremor Category: Medical Plan: Patient previously was referred to Neurology, however she was not contacted. Consult re-entered. (2) Pulmonary nodules: Code(s): R91.8 - Other nonspecific abnormal finding of lung field Category: Medical Plan: Results of follow-up CT chest reviewed and shows stable 4 mm and under bilateral pulmonary nodules. Will repeat CT chest in July of 2024, if stable at that time, then no further imaging follow-up would be required. (3) Asthma: Code(s): J45.909 - Unspecified asthma, uncomplicated Category: Medical Plan: Patient has been using albuterol MDI only as needed with good control of her underlying symptoms. Continue current regimen. Coding Level of Care Code Est Pt Level 4 (29445) Diagnoses Coarse tremors G25.2 Pulmonary nodules R91.8 Asthma J45.909
== END 2023-11-07 10:09 | disposition home or self-care (01) ==
PROVIDERS: PCP Internal Medicine Geriatric Medicine; Visit Provider Internal Medicine Pulmonary Disease
DX: G25.2 Other specified forms of tremor (principal); R91.8 Other nonspecific abnormal finding of lung field; J45.909 Unspecified asthma, uncomplicated
CPT/HCPCS: 99214

== ENCOUNTER → 2023-11-07 09:35 | Outpatient (BNVA) | payer OTHER, SELFPAY | PROVIDERS: PCP Internal Medicine Geriatric Medicine; Visit Provider Internal Medicine Pulmonary Disease | DX: J45.909 Unspecified asthma, uncomplicated (principal); R91.8 Other nonspecific abnormal finding of lung field; G25.2 Other specified forms of tremor | CPT/HCPCS: 99212 ==

== ENCOUNTER 2024-01-19 12:46 | Outpatient (AMB) | payer OTHER, SELFPAY ==
[2024-01-19 13:25] VITALS: BP 120/62; PULSE 65; BMI 25.4
--- NOTE | 2024-01-19 13:25 | A.OFFVIS_ITS ---
Vital Signs 01/19/24 13:25 Height 5 ft 2 in Weight 138 lb 14.259 oz BMI 25.4 BP 120/62 Blood Pressure Location Rt brachial Position Sitting Pulse 65 Pulse Source Pulse Oximeter Intake Visit Reasons: f/u Hide Grader Required: Yes Hide Grader Language: Financial Sales Representative Name: Sultana/colten/maltese Accompanied by: Self / Same As Patient Allergies metformin Adverse Reaction (Intermediate, Uncoded 11/07/23 09:42) Diarrhea Medication List - Last Reconciled 01/19/24 by SAM BaldwinC alcohol swabs (Alcohol Prep Pads) pad topical BID aspirin 81 mg PO DAILY atorvastatin 40 mg PO DAILY bisacodyl 10 mg (2 x 5 mg) PO BEDTIME bisacodyl (Dulcolax (bisacodyl)) 20 mg (4 x 5 mg) PO ONCE 1 day blood sugar diagnostic (FreeStyle Lite Strips) As directed bupropion HCl XL 300 mg PO DAILY docusate sodium (Colace) 100 mg PO .DAILY WITH FOOD 30 days empagliflozin (Jardiance) 25 mg PO DAILY enalapril maleate 20 mg PO DAILY hydrochlorothiazide 25 mg PO DAILY insulin degludec (Tresiba FlexTouch U-200 insulin) 68 units subcut QPM insulin syringe-needle U-100 As directed metoclopramide HCl (Reglan) 5 mg PO .tidac mirtazapine 7.5 mg PO BEDTIME peg 3350-electrolytes 236-22.74-6.74 -5.86 gram 240 mL PO Q10M rabeprazole (AcipHex) 20 mg PO BID semaglutide (Ozempic) 1 mg subcut QWEEK sertraline 50 mg PO DAILY sodium,potassium,mag sulfates 17.5-3.13-1.6 gram (Suprep Bowel Prep Kit) 480 mL orally; sodium,potassium,mag sulfates 17.5-3.13-1.6 gram (Suprep Bowel Prep Kit) DILUTE each bottle with 16oz of water; drink first bottle 5pm evening before procedure AND second bottle at 11pm; follow each bottle with at least 32 oz.of water within 1 hour after each bottle trazodone 50 mg PO BEDTIME PRN HPI HPI f/u: Details: Veda is a 78-year-old female past medical history of hypertension, hyperlipidemia, diabetes, chest discomfort followed by normal CTA of the coronary arteries, palpitations who now presents for follow-up. Today she states that she is still having issues with heart palpitations. She notices it when she is doing activities and at times at rest. Her heart goes fast and she describes it as tachycardia. She also has been experiencing some discomfort that wraps around her sides to her chest. This is newer for her. She gets this when she is doing activities but not every day. She has some shortness of breath at times but tells me she has been told her lungs are fine. No PND, orthopnea or edema. She will feel lightheaded at times, no falls, presyncope, syncope. Taking meds as directed. Would like an answer for why she is feeling the way she is. 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 [facility] Medical History Chest discomfort Pre-op examination Dyspnea on exertion Urgency of micturition Shortness of breath Irritable bowel syndrome with diarrhea Other and unspecified hyperlipidemia Essential hypertension Type 2 diabetes mellitus with unspecified complications Surgical History History of esophagogastroduodenoscopy (EGD) History of section Family History Father No problems noted. Mother No problems noted. Social History Household Members: None Housing: Apartment Alcohol intake: never Patient Tobacco Use Status: Former Tobacco user Tobacco use type: Cigarette Years Smoked: 10 Current occupational status: disabled Sexual orientation: Straight/Heterosexual Gender identity: Female Review of Systems Const Denies chills, Denies fatigue, Denies fever(s), Denies frequent falls, Denies weakness, Denies weight gain and Denies weight loss ENT Denies dizziness Card Reports chest pain, Reports chest pain with activity, Denies leg edema, Denies lightheadedness, Reports palpitations, Reports dyspnea and Reports dyspnea on exertion Resp Denies cough, Reports dyspnea and Reports dyspnea on exertion GI Denies hematochezia Musc Denies abnormal gait, Denies muscle weakness, Denies numbness, Denies radiating pain into limb and Denies tingling Neuro Denies abnormal gait, Denies dizziness, Denies frequent falls, Denies numbness, Denies tingling and Denies weakness Endo Denies fatigue and Reports palpitations Physical Exam Vital Signs: Last Vital Signs Pulse 65 01/19/24 13:25 BP 120/62 01/19/24 13:25 BMI result Body Mass Index 25.4 Const General: cooperative, healthy appearing, comfortable and no acute distress Orientation/consciousness: patient oriented x3 Neck Neck: Yes normal visual inspection and Yes no JVD Resp Effort & Inspection: normal respiratory effort Auscultation: clear to auscultation bilaterally, no crackles, no rales, no rhonchi and no wheezes Cardio Jugular venous distension: no JVD Rate: regular rate Rhythm: regular rhythm Heart sounds: S1 normal heart sound present, S2 normal heart sound present, no murmurs and no rubs Neuro General: patient oriented x3 Extrem General: Yes normal to inspection, No no pedal edema and No calf tenderness Psych Appearance: grossly normal Mental Status: mental status grossly normal Speech and movement: Normal speech and movement present Assessment & Plan Assessment & Plan (1) Palpitations: Code(s): R00.2 - Palpitations Category: Medical Plan: Reports of heart palpitations which she describes as tachycardia . She can feel her heart going fast when she is doing activities and at times at rest. No associated shortness of breath or chest discomfort with this symptom. She is on metoprolol XL 25 mg daily and reports compliance. Echocardiogram was done on 07/19/2023 showing EF 60-65%, mild LVH and impaired relaxation. A Holter monitor was done on 07/19/2023 for 1.5 days showing sinus rhythm with average heart rate 71, occasional PACs. At this time she tells me her palpitations are still occurring and causing her much concern. Her resting heart rate is in the 60s. Will continue metoprolol at current dose. Will recheck a Holter monitor to ensure that she has no concerning arrhythmia. Instructed to maintain good hydration, avoid caffeinated beverages.. Take meds as directed. Cardiology follow-up in 2 months, sooner if needed. (2) Chest discomfort: Code(s): R07.89 - Other chest pain Category: Medical Plan: In the past has reported chest discomfort. No known Hx of CAD. Does have cardiac risk factors of age, HTN, HLD, DM. Nuclear stress test 12/02/19 showed normal myocardial perfusion imaging. CTA of coronaries done on 01/08/21 shows Normal LM, RCA, LCx, her LAD does show tiny calcified plaque with no visable stenosis. On last visit she denied having any chest discomfort. Today she states she has been getting discomfort that wraps around her ribcage to the center of her chest. This can occur with activity. It is causing her concern. She has some shortness of breath with activity as well which can contribute to this feeling. It is not likely that she has obstructive CAD however she does have multiple cardiac risk factors. Patient would like further testing to be done. Will recheck a pharmacological nuclear stress test to evaluate for any ischemia. Signs and symptoms of angina reviewed with her. Emergency care if ever needed for symptoms. Continue current med management including aspirin, atorvastatin, metoprolol. (3) Essential hypertension: Code(s): I10 - Essential (primary) hypertension Category: Medical Plan: Well controlled today. No med changes made. Continue enalapril, hydrochlorothiazide, metoprolol. (4) Other and unspecified hyperlipidemia: Code(s): E78.5 - Hyperlipidemia, unspecified Category: Medical Plan: LDL goal < 70 in pt with diabetes. No recent lipid profile in the system. This is normally followed by her PCP. Continue Atorvastatin. (5) Type 2 diabetes mellitus with unspecified complications: Code(s): E11.8 - Type 2 diabetes mellitus with unspecified complications Category: Medical Plan: Followed by PCP. Plan Time spent with chart review, documentation, interview and assessment Orders: Orders CA lexiscan stress w jude Today E11.8 - Type 2 diabetes mellitus with unspecified complications, R00.2 - Palpitations, R07.89 - Other chest pain NM cardiolite stress test Today R00.2 - Palpitations, R07.89 - Other chest pain ECG 3 day holter monitor Today R00.2 - Palpitations Coding Level of Care Code Est Pt Level 4 (68556) Diagnoses Palpitations R00.2 Chest discomfort R07.89 Essential hypertension I10 Other and unspecified hyperlipidemia E78.5 Type 2 diabetes mellitus with unspecified complications E11.8 Time Spent (min) 36
== END 2024-01-19 14:15 | disposition home or self-care (01) ==
PROVIDERS: PCP Internal Medicine Geriatric Medicine; Visit Provider Nurse Practitioner Family
DX: R00.2 Palpitations (principal); R07.89 Other chest pain; I10 Essential (primary) hypertension; E78.5 Hyperlipidemia, unspecified; E11.8 Type 2 diabetes mellitus with unspecified complications
CPT/HCPCS: 99214

== ENCOUNTER → 2024-01-19 12:46 | Outpatient (BNVA) | payer OTHER, SELFPAY | PROVIDERS: PCP Internal Medicine Geriatric Medicine; Visit Provider Nurse Practitioner Family | DX: R00.2 Palpitations (principal); R07.89 Other chest pain; E11.9 Type 2 diabetes mellitus without complications; I10 Essential (primary) hypertension; E78.5 Hyperlipidemia, unspecified | CPT/HCPCS: 99212 ==

== ENCOUNTER 2024-03-25 08:35 | Outpatient (REF) | payer OTHER, SELFPAY ==
[2024-03-25 11:36] LABS: Alanine Aminotransferase 20 U/L (0-31); Alkaline Phosphatase 61 U/L (39-117); Anion Gap 11 (12-20); Aspartate Amino Transferase 25 U/L (5-31); Bilirubin Direct 0.2 mg/dL (0.0-0.5); Bilirubin Total 0.7 mg/dL (0.0-1.0); Blood Urea Nitrogen 24 mg/dL (9-16); Carbon Dioxide 26 mmol/L (22-29); Chloride 108 mmol/L (96-108); Cholesterol 111 mg/dL (<200); Creatinine Urine 81.23 mg/dL; Estimated Glomerular Filt Rate 52; Glucose Random 90 mg/dL (60-115); HDL Cholesterol 45 mg/dL (>40); LDL Cholesterol Calculated 49 mg/dL (<100); Microalbumin Urine < 5.0 mg/L; Potassium 3.6 mmol/L (3.3-5.1); Sodium 141 mmol/L (135-145); Total Protein 6.9 g/dL (6.5-8.0); Triglycerides 89 mg/dL (<150)
== END 2024-03-25 08:36 | disposition home or self-care (01) ==
LOC: HO.HHCL 08:35
PROVIDERS: Visit Provider Internal Medicine Geriatric Medicine
DX: I12.9 Hypertensive chronic kidney disease with stage 1 through stage 4 chronic kidney disease, or unspecified chronic kidney disease (principal); E11.22 Type 2 diabetes mellitus with diabetic chronic kidney disease; N18.32 Chronic kidney disease, stage 3b
CPT/HCPCS: 36415; 80048; 80061; 80076; 82570

== ENCOUNTER 2024-05-03 09:46 | Outpatient (AMB) | payer OTHER, SELFPAY ==
--- NOTE | 2024-05-03 09:55 | A.OFFVIS_ITS ---
Vital Signs 05/03/24 09:57 Height 5 ft 2 in Weight 134 lb BMI 24.5 BP 118/67 Blood Pressure Location Rt brachial Position Sitting Pulse 76 Pulse Source Doppler Pulse Oximetry (%) 96 Oxygen Delivery Method Room Air Intake Visit Reasons: COPD Mortgage Or Loan Underwriter Required: Yes Mortgage Or Loan Underwriter Name: Haydee Benítez Anne Allergies metformin Adverse Reaction (Intermediate, Uncoded 11/07/23 09:42) Diarrhea HPI HPI COPD: Details: 79-year-old lady, remote minimal smoker in her 20s, with underlying history of GERD under GI care followed for asthma and pulmonary nodules. She has not been using her albuterol MDI and complains of intermittent episodes of chest t ightness. [facility] Medical History Chest discomfort Pre-op examination Dyspnea on exertion Urgency of micturition Shortness of breath Irritable bowel syndrome with diarrhea Other and unspecified hyperlipidemia Essential hypertension Type 2 diabetes mellitus with unspecified complications Surgical History History of esophagogastroduodenoscopy (EGD) History of section Family History Father No problems noted. Mother No problems noted. Social History Household Members: None Housing: Apartment Alcohol intake: never Patient Tobacco Use Status: Former Tobacco user Tobacco use type: Cigarette Years Smoked: 10 Current occupational status: disabled Sexual orientation: Straight/Heterosexual Gender identity: Female Review of Systems Const Denies daytime sleepiness, Denies excessive sweating, Denies fatigue, Denies fever(s), Denies lethargy, Denies malaise, Denies night sweats, Denies snoring and Denies weight loss Eyes Denies blurry vision and Denies itchy eyes ENT Denies nasal congestion, Denies post nasal drip, Denies sinus pain, Denies sinus pressure and Denies other ( Thrush) Card Denies chest pain, Denies pedal edema, Denies dyspnea, Denies orthopnea and Denies paroxysmal nocturnal dyspnea Resp Denies cough, Denies hemoptysis, Denies excessive phlegm production, Denies dyspnea, Denies snoring and Denies wheezing GI Denies abdominal pain and Denies heartburn Musc Denies myalgias, Denies arthralgias and Denies joint swelling Skin/Breast Denies rash Neuro Denies memory loss and Denies seizure-like activity Psych Denies abnormal sleep pattern, Reports anxiety and Denies memory loss Endo Denies excessive sweating, Denies fatigue and Denies heat intolerance Kam/Lymph Denies easy bruising Aller/Immun Denies itchy eyes, Denies seasonal rhinorrhea and Denies wheezing Physical Exam Vital Signs: Last Vital Signs Pulse 76 05/03/24 09:57 BP 118/67 05/03/24 09:57 Pulse Ox 96 05/03/24 09:57 Oxygen Delivery Method Room Air 05/03/24 09:57 BMI result Body Mass Index 24.5 Const General: no acute distress and alert Nutritional Appearance: not obese Orientation/consciousness: Other orientation findings ( oriented) HEENT Head: Yes atraumatic Eyes General: appearance normal, both eyes and all related structures Sclerae: sclerae normal EOM: EOMs intact bilaterally Neck Neck: Yes supple Lymphatic: no lymphadenopathy noted Resp Effort & Inspection: normal respiratory effort and no use of accessory muscles Auscultation: clear to auscultation bilaterally Cardio Rate: regular rate Rhythm: regular rhythm Heart sounds: no gallops, no murmurs and no rubs Skin General skin exam: other ( warm) Extrem General: No clubbing, No cyanosis and No edema Assessment & Plan Assessment & Plan (1) Asthma: Code(s): J45.909 - Unspecified asthma, uncomplicated Category: Medical Plan: Intermittent chest tightness episode. Patient has ran out of her albuterol MDI. Restart albuterol MDI. (2) Pulmonary nodules: Code(s): R91.8 - Other nonspecific abnormal finding of lung field Category: Medical Plan: Follow-up CT chest is pending for July of 2024. Orders: Orders CT chest wo IV con 08/01/24 R91.8 - Other nonspecific abnormal finding of lung field Medications: New albuterol sulfate 90 mcg/actuation 2 puffs inhalation 6XD PRN 1 ea 6RF shortness of breath or wheezing R91.8 - Other nonspecific abnormal finding of lung field Coding Level of Care Code Est Pt Level 4 (11082) Diagnoses Asthma J45.909 Pulmonary nodules R91.8
[2024-05-03 09:57] VITALS: BP 118/67; PULSE 76; O2SAT 96; BMI 24.5
== END 2024-05-03 10:15 | disposition home or self-care (01) ==
PROVIDERS: PCP Internal Medicine Geriatric Medicine; Visit Provider Internal Medicine Pulmonary Disease
DX: J45.909 Unspecified asthma, uncomplicated (principal); R91.8 Other nonspecific abnormal finding of lung field
CPT/HCPCS: 99214

== ENCOUNTER → 2024-05-03 09:46 | Outpatient (BNVA) | payer OTHER, SELFPAY | PROVIDERS: PCP Internal Medicine Geriatric Medicine; Visit Provider Internal Medicine Pulmonary Disease | DX: J45.909 Unspecified asthma, uncomplicated (principal); R91.8 Other nonspecific abnormal finding of lung field; Z87.891 Personal history of nicotine dependence | CPT/HCPCS: 99212 ==

== ENCOUNTER → 2024-05-17 09:53 | Outpatient (REF) | payer OTHER, SELFPAY ==
--- NOTE | ~2024-05-17 | NM_ITS ---
Lexiscan Myocardial perfusion study Indication: Chest pain to evaluate for myocardial ischemia Technique: The patient was brought in for a Lexiscan perfusion study on May 17, 2024 and was injected 0.4 mg of Lexiscan intravenously. Within a minute of this injection 25 mCi of sestamibi was given intravenously. Images were obtained using the SPECT gamma camera interlaced with the gating device. Images were obtained in supine position. Resting perfusion study was performed on May 20, 2024. Patient was administered 25 mCi of sestamibi intravenously at rest. Images were then obtained in supine position. Images obtained with and without CT attenuation. Total DLP 78 mGy-cm. Images were processed with the software and compared side to side in short axis, horizontal long axis and vertical long axis views. Findings: The stress perfusion study showed nonattenuated images show normal uptake of radiotracer in the LV myocardium. Suggestion of left ventricular hypertrophy. Attenuated corrected images show thinning of the apex of the LV myocardium.. The gated study shows normal LV systolic function with calculated LVEF of 68%. LV cavity is normal in size. The gated study shows normal systolic wall thickening and contraction of segments. Resting study shows nonattenuated images show normal uptake of radiotracer in all segments of the myocardium.. Gating at rest reveals normal systolic wall motion with ejection fraction at 71%. The findings are consistent with normal myocardial perfusion. NM/NM cardiolite stress test Impression: 1. Myocardial perfusion imaging study shows normal myocardial perfusion 2. Gated LVEF is 68% 3. Transient ischemic dilatation not present Nondiagnostic changes on EKG. Electronically signed by: Ulises Canales MD 05/20/2024 03:52 PM [facility]
--- NOTE | 2024-05-17 10:04 | CA_ITS ---
Acquisition Time: 2024-05-17 10:16:48 Total Exercise Time: 00:02:00 Test Indications: CP PAC'S Medications: SEE H Protocol: LEXISCAN Max HR: 118 BPM 83% of Pred: 142 BPM Max BP: 138/070 mmHG Max Work Load: 1.0 METS Pharmacologic Stress Test with Lexiscan while pt kicks her legs in the chair, with reports of headache and stomach discomfort, with isolated PVCs, with normotensive response to injection. Nondiagnostic EKG for ischemia. In recovery, pt treated klever IVP Aminophylline 75 mg to reverse Lexiscan, after which the symptoms resolved. Nuclear images pending. Test reviewed with Dr. Canales. Referred By: Sabi Emerson Overread By: Aden Pate
== END ==
LOC: HO.CARD 09:53
PROVIDERS: PCP Internal Medicine Geriatric Medicine; Visit Provider Nurse Practitioner Family
DX: R07.89 Other chest pain (principal); R00.2 Palpitations; E11.8 Type 2 diabetes mellitus with unspecified complications
CPT/HCPCS: 78452; 93017; 93242; A9500; J0280; J2785

== ENCOUNTER → 2024-05-17 10:04 | Outpatient (BNV) | payer OTHER, SELFPAY | PROVIDERS: PCP Internal Medicine Geriatric Medicine | DX: I49.3 Ventricular premature depolarization (principal) | CPT/HCPCS: 78452; 93016; 93018 ==

== ENCOUNTER 2024-08-02 08:21 | Outpatient (REF) | payer OTHER, SELFPAY ==
--- NOTE | ~2024-08-02 | CT_ITS ---
CLINICAL HISTORY: R91.8 - Other nonspecific abnormal finding of lung field CT chest without contrast Comparison: 09/18/2023 Findings: The heart is normal size. The visualized thyroid and mediastinum are unremarkable. There are calcified granulomata in the left upper lobe. The lungs are otherwise clear. The visualized upper abdomen is unremarkable. No acute fractures. IMPRESSION: 1. Sequelae of previous granulomatous disease. This document has been electronically signed by: Yakov Nguyễn MD on 08/03/2024 08:45:22
--- OUTSIDE RECORDS SUMMARY | 2024-08-02 08:37 | XMS_ITS | Encounter Summary ---
Author Organization [employer] Address [address] [facility] [address] [place] [address] Care Team Providers Care Management Technician Name Role Phone Name, Skip HANEY Primary Care Provider [phone] Brittney Mathias PharmD Unavailable Reason for Visit * Reason Comments Med Refill Encounter Details Date Type Department Care Team ([facility] st Contact Info) Description 12/04/2022 Refill [facility] [address] [place], [place] [id number] Name, MD Skip [address] [place] [address] Essential hypertension Social History Tobacco Use Types Packs/Day Years Used Date Smoking Tobacco: Former Cigarettes Smokeless Tobacco: Never Depression Answer Date Recorded Patient Health Questionnaire-2 Score 0 05/27/2022 Comments Unknown Sex and Gender Information Value Date Recorded Sex Assigned at Female 03/14/2022 10:32 AM EDT Legal Sex Female 10:32 AM EDT Gender Identity Female 03/14/2022 10:32 AM EDT Sexual Orientation Straight 03/14/2022 10 :32 AM EDT COVID-19 Exposure Response Date Recorded In the last 10 days, have yo u been in contact with someone who was confirmed or suspected to have Coronavirus/COVID-19? No / Unsure 11/10/2022 8:21 AM EDT documented as of this encounter Miscellaneous Notes * Telephone Encounter - Jenna Collazo - 12/06/2022 9:49 AM EDT Tc from patients daughter requesting a med refill for medications enalapril 20 mg and hydrochlorothiazide [address] Marrero documented in this encounter Plan of Treatment Upcoming Encounters Date Type Department Care Team (Late st Contact Info) Description 08/16/2024 9:30 AM EDT Medication Management [facility] [address] [place] [address] Brittney Mathias PharmD [address] [place] [address] documented as of this encounter Goals Goal Patient Goal Type Associated Problems Recent Progress Patient-Stated? Author Hemoglobin A1c < 8 Result Component 7.1( 5 10:40 AM EST) No Brittney Mathias PharmD Record your blood sugar as directed Result Component On track( 023 10:52 AM EST) No Brittney Mathias PharmD Note: SMBG via CGM, ensuring sensor is scanned at least once every 8 hours. Check manual BG as needed & as directed. documented as of this encounter Visit Diagnoses Diagnosis Essential hypertension Unspecified essential hypertension documented in this encounter Care Teams Management Technician Relationship Specialty Start Date End Date Name, MD Skip [address] [place] [address] PCP - General Family Medicine 05/01/17 Brittney Mathias, MiquelD [address] [place], [place] [id number] Pharmacist Internal Medicine 07/07/22 documented as of this encounter
--- OUTSIDE RECORDS SUMMARY | 2024-08-02 08:37 | XMS_ITS | Encounter Summary ---
Author Organization [employer] Address [address] [facility] [address] [place] [address] Care Team Providers Care Patent Litigation Associate Name Role Phone Name, Skip HANEY Primary Care Provider [phone] Brittney Mathias PharmD Unavailable [phone] Encounter Details Date Type Department Care Team (Latest Contact Info) Description 07/05/2024 Travel Social History Tobacco Use Types Packs/Day Years Used Date Smoking Tobacco: Former Cigarettes Smokeless Tobacco: Never Alcohol Use Standard Drinks/Week Comments Never 0 (1 standard drink = 0.6 oz pur e alcohol) Housing Stability Answer Date Recorded What is your housing situation today? I have kevin chan 03/16/[address] you li ve. Do you have problems with any of the following? None of the above 03/16/2023 Food Insecurity Answer Date Recorded Within the past 12 months, y ou worried that your food would run out before you got money to buy more: Never True 03/16/2023 Within the past 12 months,th e food you bought just didn't last and you didn't have enough money to get more: Never True 06/2022 Transportation Answer Date Recorded In the past 12 months, has l ack of transportation kept you from medical appts, meetings, work or from getting things needed for daily living? No 03/16/2023 Utilities Answer Date Recorded In the past 12 months, has t he electric, gas, oil or water company threatened to shut off services in your home? No 03/16/2023 Depression Answer Date Recorded Patient Health Questionnaire-2 Score 0 05/27/2022 Comments Unknown Sex and Gender Information Value Date Recorded Sex Assigned at Female 03/14/2022 10:32 AM EDT Legal Sex Female 10:32 AM EDT Gender Identity Female 03/14/2022 10:32 AM EDT Sexual Orientation Straight 03/14/2022 10 :32 AM EDT documented as of this encounter Plan of Treatment Upcoming Encounters Date Type Department Care Team (Late st Contact Info) Description 08/16/2024 9:30 AM EDT Medication Management [facility] [address] [place] [address] Brittney Mathias PharmD [address] [place] [address] documented as of this encounter Goals Goal Patient Goal Type Associated Problems Recent Progress Patient-Stated? Author Hemoglobin A1c < 8 Result Component 7.1( 10:40 AM EST) No Brittney Mathias PharmD Record your blood sugar as directed Result Component On track( 023 10:52 AM EST) No Brittney Mathias PharmD Note: SMBG via CGM, ensuring sensor is scanned at least once every 8 hours. Check manual BG as needed & as directed. documented as of this encounter Visit Diagnoses Not on filedocumented in this encounter Care Teams Patent Litigation Associate Relationship Specialty Start Date End Date Name, MD Skip [address] [place] [id number] PCP - General Family Medicine 05/01/17 Brittney Mathias PharmD [address] [place] [phone] Pharmacist Internal Medicine 07/07/22 documented as of this encounter
--- OUTSIDE RECORDS SUMMARY | 2024-08-02 08:37 | XMS_ITS | Clinical Summary ---
Author Organization [employer] Address [address] [facility] [address] [place] [address] Care Team Providers Care Lidar Scientist Name Role Phone Name, Skip HANEY Primary Care Provider [phone] Brittney Mathias PharmD Unavailable [phone] Allergies Active Allergy Reactions Criticality Noted Date Comments Metformin Diarrhea 03/13/2018 Medications Continuous Blood Gluc Bottom Sander (Liquefied Natural GasStyle Tamera 2 [place]) deviceIndicatio ns:Type 2 diabetes mellitus with other specified complication, unspecified whether halfway insulin use (CMS/HCC) Use as directed for CGM. 1 each 07/07/19 23 Active RABEprazole (Aciphex) 20 MG EC tablet Take 1 tablet by mouth 2 times daily. 08/04/19 23 Active mirtazapine (Remeron) 7.5 MG tablet Take 7.5 mg by mouth at bedtime. 11/04/19 23 Active docusate sodium (Colace) 100 MG capsule Take 100 mg by mouth Once daily. Active albuterol 108 (90 Base) MCG/ACT inhaler Inhale 2 puffs Every 4-6 hours as needed for wheezing or shortness of breath. 18 g 2 01/07/20 23 Active glucagon (Baqsimi Two Pack) 3 MG/DOSE nasal powder Administer 3 mg into affected nostril(s) 1 (one) time if needed for low blood sugar. 1 each 1 01/18/20 23 Active buPROPion XL (Wellbutrin XL) 300 MG 24 hr tablet Take 300 mg by mouth in the morning. 01/07/20 23 Active Alcohol Swabs (Alcohol Prep) 70 % padsIndications :Type 2 diabetes mellitus with other specified complication, unspecified whether terminal makeup operator insulin use (CMS/HCC) USE DIRECTED FOUR TIMES DAILY AND ONCE EVERY 2 WEEKS WITH sensor. 100 each 08/04/19 24 Active TRUEplus Lancets 33G miscIndications :Type 2 diabetes mellitus with other specified complication, unspecified whether terminal makeup operator insulin use ([facility]) Use to test blood sugar up to 4 times daily, as directed. 100 each 08/14/19 24 Active glucose blood (FreeStyle Precision Jono Test) test stripIndication s:Type 2 diabetes mellitus with other specified complication, unspecified whether terminal makeup operator insulin use ([facility]) Use to test blood sugar up to 4 times daily, as directed 100 each 08/14/19 24 Active semaglutide (Ozempic, 1 MG/DOSE,) 4 MG/3ML solution pen-injectorInd ications:Type 2 diabetes mellitus with other specified complication, unspecified whether terminal makeup operator insulin use ([facility]) Inject 1 mg under the skin 1 (one) time per week. 3 mL 09/15/19 24 Active metoclopramide (Reglan) 5 MG tablet 10/06/19 24 Active Continuous Glucose Sensor (FreeStyle Tamera 2 Sensor) miscIndications :Type 2 diabetes mellitus with other specified complication, unspecified whether terminal makeup operator insulin use ([facility]) Apply 1 sensor, as directed, to monitor BG. Remove and replace after 14 days. 2 each 12/01/19 24 Active glucose 4 g chewable tabletIndicatio ns:Type 2 diabetes mellitus with other specified complication, unspecified whether halfway insulin use ([facility]) Chew 4 tablets (16g) as needed for low blood sugars < 70 mg/dL. Recheck blood sugar after 15 mins. 20 tablet 5 12/29/19 24 Active insulin degludec (Tresiba FlexTouch) 200 UNIT/ML injectionIndica tions:Type 2 diabetes mellitus with other specified complication, unspecified whether terminal makeup operator insulin use ([facility]) Inject 56 Units under the skin in the evening. 9 mL 5 03/26/20 24 Active Blood Pressure kit Use to check blood pressure once daily as directed 1 kit 07/05/19 25 Active insulin pen needle (Pentips) 32G x 4 mm miscIndications :Type 2 diabetes mellitus with other specified complication, unspecified whether halfway insulin use ([facility]) Use as instructed to inject insulin once daily 100 each 07/05/19 25 Active Pentips 32G X 4 MM miscIndications :Type 2 diabetes mellitus with other specified complication, unspecified whether terminal makeup operator insulin use ([facility]) USE FOUR TIMES DAILY DIRECTED 100 each 11 06/26/19 24 025 Discontinued(R eorder (will not trigger notification to Pharmacy)) atorvastatin (Lipitor) 40 MG tabletIndicatio ns:Type 2 diabetes mellitus with other specified complication, unspecified whether terminal makeup operator insulin use ([facility]) TAKE 1 TABLET BY MOUTH EVERY MORNING 90 tablet 3 10/10/19 24 025 Discontinued(P atient refused) Aspirin Low Dose 81 MG EC tablet TAKE 1 TABLET BY MOUTH EVERY MORNING 90 tablet 2 11/29/19 24 025 Discontinued(P atient refused) enalapril (Vasotec) 20 MG tablet TAKE 1 TABLET BY MOUTH EVERY MORNING 90 tablet 2 11/29/19 24 025 Discontinued(P atient refused) hydroCHLOROthia zide (HYDRODiuril) 25 MG tabletIndicatio ns:Essential hypertension TAKE 1 TABLET BY MOUTH EVERY MORNING 90 tablet 2 11/29/19 24 025 Discontinued(P atient refused) Jardiance 25 MGIndications:T ype 2 diabetes mellitus with other specified complication, unspecified whether halfway insulin use ([facility]) TAKE 1 TABLET BY MOUTH EVERY MORNING 30 tablet 5 05/27/19 25 025 Discontinued(P atient refused) Active Problems Problem Noted Date Diagnosed Date Stage 3b chronic kidney disease 01/17/2023 History of tympanoplasty 05/27/2022 Overview (05/27/2022): Left side, 2018, Dr Torre Urinary incontinence 05/25/2022 Vascular insufficiency 05/25/2022 Carpal tunnel syndrome 01/20/2021 Lung nodule 01/20/2021 Hip pain 07/26/2018 Neck pain 07/26/2018 Shoulder pain 07/26/2018 Lumbar radiculopathy 01/08/2018 Primary osteoarthritis of right knee 01/08/2018 Chronic low back pain 11/03/2017 Decreased hearing 08/01/2017 Perforation of tympanic membrane 08/01/2017 Raised TSH level 08/01/2017 Constipation 05/16/2017 Essential hypertension 05/16/2017 Knee pain 05/16/2017 Primary osteoarthritis of both knees 05/16/2017 Gastroesophageal reflux disease 05/01/2017 Mixed anxiety and depressive disorder 05/01/2017 Type 2 diabetes mellitus 05/01/2017 Encounters Date Type Department Care Team Description 07/05/2024 Travel 05/24/2024 Refill [facility] MED[facility]INE [address] [place] [address] Brittney Mathias, MiquelD Type 2 diabetes mellitus with other specified complication, unspecified whether halfway insulin use ([facility]) 05/22/2024 Telephone [facility] MEDICINE [address] [place] [address] Brittney Mathias PharmD Prior Authorization (Freestyle Libe 2 CGM re-certification ) 05/22/2024 Telephone [facility] MEDICINE [address] [place] [address] Name, MD Skip Prior Authorization (Freestyle Tamera 2 sensors) 05/17/2024 Orders Only [facility] External Provider, [facility] from Last 3 Months Immunizations Name Administration Dates Next Due Hep B, adult 04/13/2023,11/10/2022,10/13/2022 Influenza High-dose Quadriva lent Preservative Free 04/21/2023,02/14/2022,02/12/2021,02/10 Influenza injectable quadriv alent IIV4 with preservative 05/16/2017 Influenza, High Dose Seasona l, Preservative Free 02/09/2024,05/29/2019,02/23/2018 Pfizer Covid-19 Vaccine 12+ 04/05/2024, Pfizer Covid-19 Vaccine 12+ Bivalent 10/13/2022 Pneumococcal Conjugate PCV 13 01/23/2018 Pneumococcal Polysaccharide PPSV23 05/29/2019 RSV Bivalent 04/21/2023 Tdap 01/23/2018 Zoster, Recombinant 06/07/2024,03/26/2024 Social History Tobacco Use Types Packs/Day Years Used Date Smoking Tobacco: Former Cigarettes Smokeless Tobacco: Never Tobacco Cessation:Counseling Given: Not Answered Alcohol Use Standard Drinks/Week Comments Never 0 [...] Orientation Straight 03/14/2022 10 :32 AM EDT Last Filed Vital Signs Vital Sign Reading Time Taken Comments Blood Pressure 132/64 07/05/2024 10:02 AM EST Pulse 69 06/23/2023 11:33 AM EST Temperature 36.6 ??C (97.8 ??F) 06/23/2023 11:[address] Respiratory Rate 17 06/23/2023 11:33 AM EST Oxygen Saturation 98% 06/23/2023 11:33 AM EST Inhaled Oxygen Concentration - - Weight 62.9 kg (138 lb 9.6 oz) 07/05/2024 10:02 AM EST Height 159 cm (5' 2.6 ) 04/03/2023 9:16 AM EST Body Mass Index 24.87 04/03/2023 9:16 AM EST Plan of Treatment Upcoming Encounters Date Type Department Care Team (Late st Contact Info) Description 08/16/2024 9:30 AM EDT Medication Management [facility] MEDICINE [address] [place] [address] Brittney Mathias, PharmD [address] [place] [address] Health Maintenance Due Date Last Done Comments Alcohol/Substance Use Screening 1957 Hepatitis C Screening 02[birth year]02/1963 Depression Screening 05/27/2023 05/27/2022, 05/27/19 SDOH Screening 05/27/2023 05/27/2022 Eye Exam 08/05/2023 08/04/2022, 07/14, 08/04/2022, Additional history exists Diabetes: Foot Exam 04/03/2024 04/03/2023, 04/03/2023, 04/03/2023, Additional history exists Tobacco Screening 06/23/2024 06/23/2023 Diabetes: Hemoglobin A1C 09/05/2024 025, 02/09/2024, 10/27/2023, Additional history exists Diabetes: Urine Protein Screening 03/25/2025 03/25/2024, 01/17/2023, 08/18/2022, Additional history exists Lipid Panel 03/25/2025 03/25/2024, 04/0 10/2022, 02/17/2022, Additional history exists DTaP/Tdap/Td Vaccines (2 - Td or Tdap) 01/24/2028 01/23/2018 Pneumococcal Vaccine: 50+ Years Completed 05/29/2019, 01/23/2018 Hepatitis B Vaccines Completed 04/13/2023, 11/10/2022, 10/13/2022 RSV Patients and Patients Aged 60 years or older Completed 04/21/2023 Influenza Vaccine Completed 02/09/2024, , 02/14/2022, Additional history exists COVID-19 Vaccine Completed 04/05/2024, , 10/13/2022, Additional history exists Zoster Vaccines Completed 06/07/2024, 03/26/2024 HIB Vaccines Aged Out No longer eligi ble based on patient's age to complete this topic HPV Vaccines Aged Out No longer eligi ble based on patient's age to complete this topic Hepatitis A Vaccines Aged Out No long er eligible based on patient's age to complete this topic IPV Vaccines Aged Out No longer eligi ble based on patient's age to complete this topic Meningococcal Vaccine Aged Out No chrissy eliecer eligible based on patient's age to complete this topic RSV under 20 months Aged Out No longe r eligible based on patient's age to complete this topic Rotavirus Vaccines Aged Out No longer eligible based on patient's age to complete this topic Goals Goal Patient Goal Type Associated Problems [...] manual BG as needed & as directed. Procedures Procedure Name Priority Date/Time Associated Diagnosis Comments POCT GLYCATED HEMOGLOBIN, TOTAL Routine 06/07/2024 10:40 AM EST Type 2 diabetes mellitus with other specified complication, unspecified whether terminal makeup operator insulin use ([facility]) STRESS TEST WITH MYOCARDIAL PERFUSION Routine 05/17/2024 10:41 AM EST ALBUMIN, RANDOM URINE W/CREATININE Routine 03/25/2024 8:40 AM EST LIPID PANEL, STANDARD Routine 03/25/2024 8:40 AM EST from Last 3 Months or Most Recently Relevant to Health Maintenance Results * (ABNORMAL) POCT HGB A1C (06/07/2024 10:40 AM EST) Hemoglobin A1C 7.1(A) 4.0 - 6.0 % Blood 06/07/2024 10:4 0 AM EST us Skip Marrero MD POINT OF CARE TEST ENTER/EDIT OR DERABLES Final Result * Stress test with myocardial perfusion (05/17/2024 10:41 AM EST) 05/17/2024 10:4 1 AM EST Narrative [facility] IMAGING - 05/20/2024 3:55 PM EST ? [facility] ?[address] ?[place], [place] [address] ?Nuclear Medicine Report ? Signed ? Patient: Bezares Jatinder,Veda ?MR#: ?? [id number] ? : 1945 ?Acct:[id number] ? Age/Sex: 79 / F ?ADM Date: 05/17/24 ? Loc: HO.CARD ? Attending Dr: Sabi NIELSON ? Ordering Physician: Sabi Emerson ?? Date of Service: 05/17/24 ?? Procedure(s): NM cardiolite stress test ?? Accession Number(s): [id number] ? cc: Sabi Emerson; Name,Skip HANEY ? Lexiscan Myocardial perfusion study ? Indication: ?? Chest pain to evaluate for myocardial ischemia ? Technique: ? The patient was brought in for a Lexiscan perfusion study on May 17 ?? 2024 and was injected 0.4 mg of Lexiscan intravenously. Within a minute ?? of this injection 25 mCi of sestamibi was given intravenously. Images ?? were obtained using the SPECT gamma camera interlaced with the gating ?? device. Images were obtained in supine position. ? Resting perfusion study was performed on May 20, 2024. Patient was ?? administered 25 mCi of sestamibi intravenously at rest. Images were ?? then obtained in supine position. ? Images obtained with and without CT attenuation. Total DLP 78 mGy-cm. ? Images were processed with the software and compared side to side in ?? short axis, horizontal long axis and vertical long axis views. ? Findings: ? The stress perfusion study showed ??nonattenuated images show normal ?? uptake of radiotracer in the LV myocardium. ?? Suggestion of left ventricular hypertrophy. Attenuated corrected images ?? show thinning of the apex of the LV myocardium.. The gated study shows ?? normal LV systolic function with calculated LVEF of 68%. LV cavity is ?? normal in size. The gated study shows normal systolic ??wall thickening ?? and contraction of segments. ?? Resting study shows nonattenuated images show normal uptake of ?? radiotracer in all segments of the myocardium.. Gating at rest reveals ?? normal systolic wall motion with ejection fraction at 71%. ? The findings are consistent with normal myocardial perfusion. ? NM/NM cardiolite stress test ?? Impression: ? 1. ??Myocardial perfusion imaging study shows normal myocardial perfusion ?? 2. ??Gated LVEF is 68% ?? 3. Transient ischemic dilatation not present ? Nondiagnostic changes on EKG. ? Electronically signed by: ??Ulises Canales MD ??05/20/2024 03:52 PM EST RP ? Dictated By: ?Ulises Canales MD ? Signed By: ?<Electronically signed by Ulises Canales MD in OV> ?05/20/24 1552 ? DD/ 1041 ? TD/TT: 05/20/24 0845 ? Director Of Human Resources: ? Procedure Note Haydee Gary - 05/20/2024 [place] [id number] Nuclear Medicine Report Signed Patient: Inocente Matias#: [id number] : 1945cct:[id number] Age/Sex: 79 / FADM Date: 05/17/24 Loc: MINI Attending Dr: Sabi NIELSON Ordering Physician: Sabi Emerson Date of Service: 05/17/24 Procedure(s): NM cardiolite stress test Accession Number(s): [id number] cc: Sabi Emerson; Name,Skip HANEY Lexiscan Myocardial perfusion study Indication: Chest pain to evaluate for myocardial ischemia Technique: The patient was brought in for a Lexiscan perfusion study on May 17, 2024 and was injected 0.4 mg of Lexiscan intravenously. Within a minute of this injection 25 mCi of sestamibi was given intravenously. Images were obtained using the SPECT gamma camera interlaced with the gating device. Images were obtained in supine position. Resting perfusion study was performed on May 20, 2024. Patient was administered 25 mCi of sestamibi intravenously at rest. Images were then obtained in supine position. Images obtained with and without CT attenuation. Total DLP 78 mGy-cm. Images were processed with the software and compared side to side in short axis, horizontal long axis and vertical long axis views. Findings: The stress perfusion study showed nonattenuated images show normal uptake of radiotracer in the LV myocardium. Suggestion of left ventricular hypertrophy. Attenuated corrected images show thinning of the apex of the LV myocardium.. The gated study shows normal LV systolic function with calculated LVEF of 68%. LV cavity is normal in size. The gated study shows normal systolic wall thickening and contraction of segments. Resting study shows nonattenuated images show normal uptake of radiotracer in all segments of the myocardium.. Gating at rest reveals normal systolic wall motion with ejection fraction at 71%. The findings are consistent with normal myocardial perfusion. NM/NM cardiolite stress test Impression: 1. Myocardial perfusion imaging study shows normal myocardial perfusion 2. Gated LVEF is 68% 3. Transient ischemic dilatation not present Nondiagnostic changes on EKG. Electronically signed by: Ulises Canales MD 05/20/2024 03:52 PM EST Dictated By: Ulises Canales MD Signed By: <Electronically signed by Ulises Canales MD in OV> 05/20/24 1552 DD/ 1041 TD/TT: 05/20/24 0845 Director Of Human Resources: us [facility] External Provider CV STRE SS PROCEDURES Final Result [facility] IMAGING [address] [place] [phone] * Albumin, Random Urine W/Creatinine (03/25/2024 8:40 AM EST) Creatinine, Urine 81.23 mg/dL [facility] Microalbumin Urine <5.0 mg/L H [facility] Microalbum Creatinine Ratio Ur TNP <30 ug/mg cr [facility] Comment:Unable to calculate albumin/creatinine ratio due to lowmicroalbumin or creatinine result. 03/25/2024 8:40 AM EST 03/25/2024 11:02 AM EST Skip Marrero MD LAB URINE ORDERABLES Final Resul t Performing Organization Address [facility] Co de Phone Number [facility] [address] [place] [address] [phone] * Lipid Panel, Standard (03/25/2024 8:40 AM EST) Triglycerides 89 <150 mg/dL [facility] Comment:Desirable Triglyceri de: less than 150 mg/dLBorderline High Triglyceride 150-199 mg/dLHigh Triglyceride: 200-499 mg/dLVery High Triglyceride: greater than or equal to 5OO mg/dL Cholesterol 111 <200 mg/dL [facility] Comment:Desirable Cholestero l: less than 200 mg/dLBorderline High Cholesterol: 200-239 mg/dLHigh Cholesterol: greater than 239 mg/dL LDL Cholesterol Calculated 49 <100 mg/dL [facility] Comment:Desirable LDL: less than 100 mg/dLNear Optimal/Above Optimal LDL: 110- 129 mg/dLBorderline High LDL: 130-159 mg/dLHigh LDL: 160-189 mg/dLVery High LDL: greater than or equal to 190 mg/dL HDL Cholesterol 45 >40 mg/dL [facility] Comment:Desirable HDL: great er than 40 mg/dL Note: This HDL assay may give artificially low results in patients with liver disease. 03/25/2024 8:40 AM EST 03/25/2024 11:06 AM EST us Skip Marrero MD LAB BLOOD ORDERABLES Final Resul t Performing Organization Address [facility]/ZIP Co de Phone Number [facility] [address] [place] [address] [phone] from Last 3 Months or Most Recently Relevant to Health Maintenance Insurance [facility] Care Teams Lidar Scientist Relationship Specialty Start Date End Date Name, MD Skip [address] [place] [address] PCP - General Family Medicine 05/01/17 Brittney Mathias PharmD [address] [place] [address] Pharmacist Internal Medicine 07/07/22
--- OUTSIDE RECORDS SUMMARY | 2024-08-02 08:37 | XMS_ITS | Encounter Summary ---
Author Organization [employer] Address [address] 7[address] [place] [address] Care Team Providers Care Circuit Board Repair Technician Name Role Phone Name, Skip HANEY Primary Care Provider [phone] Brittney Mathias PharmD Unavailable [phone] Encounter Details Date Type Department Care Team (Late st Contact Info) Description 06/28/2023 Telephone [facility] MEDICINE [address] [place], [place] [phone] Rito Bateman MD [address] [place], [place] [phone] Social History Tobacco Use Types Packs/Day Years Used Date Smoking Tobacco: Former Cigarettes Smokeless Tobacco: Never Alcohol Use Standard Drinks/Week Comments Never 0 (1 standard drink = 0.6 oz pur e alcohol) Housing Stability Answer Date Recorded What is your housing situation today? I have kevinwesley chan 03/16/[address] you [...] Description 08/16/2024 9:30 AM EDT Medication Management [facility] MEDICINE [address] [place] [address] Brittney Mathias PharmD [address] [place] [address] documented as of this encounter Goals Goal [...] on filedocumented in this encounter Care Teams Circuit Board Repair Technician Relationship Specialty Start Date End Date Name, MD Skip [address] [place] [id number] PCP - General Family Medicine 05/01/17 Brittney Mathias PharmD [address] [place], [place] [phone] Pharmacist Internal Medicine 07/07/22 documented as of this encounter
--- OUTSIDE RECORDS SUMMARY | 2024-08-02 08:37 | XMS_ITS | Encounter Summary ---
Author Organization [employer] Address [address] [facility] [address]t [place] [address] Care Team Providers Care Teacher Vocational Training Name Role Phone Name, Skip HANEY Primary Care Provider [phone] Brittney Mathias PharmD Unavailable [phone] Reason for Visit * Reason Comments Med Refill Encounter Details Date Type Department Care Team ([facility] st Contact Info) Description 04/24/2023 Refill [facility] MEDICINE [address] [place] [address] Brittney Mathias, PharmD [address] [place] [address] Type 2 diabetes mellitus with other specified complication, unspecified whether nursing home insulin use ([facility]) Social History Tobacco Use Types Packs/Day Years [...] encounter Miscellaneous Notes * Telephone Encounter - Brittney Mathias PharmD - 04/25/2023 11:30 AM EST Refills issued for continued use. She was seen in [facility] 04/2023 and has follow up in 06/2023. Currentdose is appropriate given renal function. Decrease to 10 mg daily if eGFR does drop below 30 but above 20 in future. documented in this encounter Plan of Treatment Upcoming Encounters Date Type Department Care Team (Late st Contact Info) Description 08/16/2024 9:30 AM EDT Medication Management [facility] MEDICINE [address] [place], [place] [phone] Brittney Mathias PharmD [address] [place] [address] documented as of this encounter Goals Goal [...] as of this encounter Visit Diagnoses Diagnosis Type 2 diabetes mellitus with other specified complication, unspecified whether nursing home insulin use ([facility]) documented in this encounter Care Teams Teacher Vocational Training Relationship Specialty Start Date End Date Name, MD Skip [address] [place] [address] PCP - General Family Medicine 05/01/17 Brittney Mathias PharmD [address] [place] [address] Pharmacist Internal Medicine 07/07/22 documented as of this encounter
== END 2024-08-02 08:22 | disposition home or self-care (01) ==
LOC: HO.CT 08:21
PROVIDERS: PCP Internal Medicine Geriatric Medicine; Visit Provider Internal Medicine Pulmonary Disease
DX: R91.8 Other nonspecific abnormal finding of lung field (principal)
CPT/HCPCS: 71250

== ENCOUNTER → 2024-08-02 08:23 | Outpatient (BNV) | payer OTHER, SELFPAY | PROVIDERS: PCP Internal Medicine Geriatric Medicine; Visit Provider Specialist | DX: R91.8 Other nonspecific abnormal finding of lung field (principal) | CPT/HCPCS: 71250 ==

== ENCOUNTER 2024-08-21 10:16 | Outpatient (REF) | payer OTHER, SELFPAY ==
--- OUTSIDE RECORDS SUMMARY | 2024-08-21 11:35 | XMS_ITS | Encounter Summary ---
Author Organization [employer] Address [address] [facility] [address] [place] [address] Care Team Providers Care Television Repairman Name Role Phone Name, Skip HANEY Primary Care Provider [phone] Brittney Mathias PharmD Unavailable [phone] Encounter Details Date Type Department Care Team (Late st Contact Info) Description 06/28/2023 Telephone [facility] MEDICINE [address] [place], [place] [phone] Rito Bateman MD [address] [place], [place] [phone] Social History Tobacco Use Types Packs/Day Years [...] Care Team (Late st Contact Info) Description 09/27/2024 9:00 AM EDT Medication Management [facility] MEDICINE [address] [place] [address] Brittney Mathias PharmD [address] [place] [address] documented as of this encounter Goals Goal [...] on filedocumented in this encounter Care Teams Television Repairman Relationship Specialty Start Date End Date Name, MD Skip [address] [place] [address] PCP - General Family Medicine 05/01/17 Brittney Mathias PharmD 230 [place], [place] [phone] Pharmacist Internal Medicine 07/07/22 documented as of this encounter
--- OUTSIDE RECORDS SUMMARY | 2024-08-21 11:35 | XMS_ITS | Encounter Summary ---
Author Organization [employer] Address 75 [facility] 7t [place] [address] Care Team Providers Care Natural Gas Plant Technician Name Role Phone Name, Skip HANEY Primary Care Provider [phone] Brittney Mathias PharmD Unavailable [phone] Reason for Visit * Reason Comments Med Refill Encounter Details Date Type Department Care Team ([facility] st Contact Info) Description 04/24/2023 Refill [facility] MEDICINE 230 [place] [address] Brittney Mathias, PharmD 230 [place] [address] Type 2 diabetes mellitus with other specified complication, 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 She was seen in [facility] 04/2023 and has follow up in 06/2023. Currentdose is appropriate given renal function. Decrease to 10 mg daily if eGFR does drop below 30 but above 20 in future. documented in this encounter Plan of Treatment Upcoming Encounters Date Type Department Care Team (Late st Contact Info) Description 09/27/2024 9:00 AM EDT Medication Management [facility] MEDICINE [address] [place], [place] [phone] Brittney Mathias PharmD [address] [place] [address] documented as of this encounter Goals Goal [...] mellitus with other specified complication, unspecified whether prison insulin use ([facility]) documented in this encounter Care Teams Natural Gas Plant Technician Relationship Specialty Start Date End Date Name, MD Skip [address] [place] [address] PCP - General Family Medicine 05/01/17 Brittney Mathias PharmD [address] [place] [address] Pharmacist Internal Medicine 07/07/22 documented as of this encounter
--- OUTSIDE RECORDS SUMMARY | 2024-08-21 11:36 | XMS_ITS | Clinical Summary ---
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) Use as directed for CGM. 1 each [...] mouth in the morning. 01/07/20 23 Active semaglutide (Ozempic, 1 MG/DOSE,) 4 MG/3ML solution pen-injectorInd ications:Type 2 diabetes mellitus with other specified complication, unspecified whether intermediate school teacher insulin use ([facility]) Inject 1 mg under the skin 1 (one) time per week. 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) Apply 1 sensor, as directed, to monitor BG. Remove and replace after 14 days. 2 each 12/01/19 24 Active glucose 4 g chewable tabletIndicatio ns:Type 2 diabetes mellitus with other specified complication, unspecified whether custodial insulin use ([facility]) Chew 4 tablets (16g) as needed for low blood sugars < 70 mg/dL. Recheck blood sugar after 15 mins. 20 tablet 5 12/29/19 24 Active insulin degludec (Tresiba FlexTouch) 200 UNIT/ML injectionIndica tions:Type 2 diabetes mellitus with other specified complication, unspecified whether custodial insulin use ([facility]) Inject 56 Units under the skin in the evening. 9 mL 5 03/26/20 24 Active Blood Pressure kit Use to check blood pressure once daily as directed 1 kit 07/05/19 25 Active insulin pen needle (Pentips) 32G x 4 mm miscIndications :Type 2 diabetes mellitus with other specified complication, unspecified whether custodial insulin use ([facility]) Use as instructed to inject insulin once daily 100 each 07/05/19 25 Active empagliflozin (Jardiance) 10 MGIndications:T ype 2 diabetes mellitus with other specified complication, unspecified whether custodial insulin use ([facility]) Take 1 tablet (10 mg) by mouth Once per day. 30 tablet 08/17/19 25 026 Active atorvastatin (Lipitor) 40 MG tabletIndicatio ns:Type 2 diabetes mellitus with other specified complication, unspecified whether intermediate school teacher insulin use ([facility]) Take 1 tablet (40 mg) by mouth Once per day. 30 tablet 08/17/19 25 026 Active Alcohol Swabs (Alcohol Prep) 70 % padsIndications :Type 2 diabetes mellitus with other specified complication, unspecified whether intermediate school teacher insulin use (CMS/HCC) USE DIRECTED FOUR TIMES DAILY AND ONCE EVERY 2 WEEKS WITH sensor. 100 each 08/17/19 25 Active glucose blood (FreeStyle Precision Jono Test) test stripIndication s:Type 2 diabetes mellitus with other specified complication, unspecified whether intermediate school teacher insulin use (CMS/HCC) Use to test blood sugar up to 4 times daily, as directed 100 each 08/17/19 25 Active TRUEplus Lancets 33G miscIndications :Type 2 diabetes mellitus with other specified complication, unspecified whether intermediate school teacher insulin use (CMS/HCC) Use to test blood sugar up to 4 times daily, as directed. 100 each 08/17/19 25 Active losartan (Cozaar) 25 MG tabletIndicatio ns:Type 2 diabetes mellitus with other specified complication, unspecified whether custodial insulin use (CMS/[facility]),Essen tial hypertension Take 1 tablet (25 mg) by mouth Once per day. 30 tablet 5 08/17/19 25 Active Alcohol Swabs (Alcohol Prep) 70 % padsIndications :Type 2 diabetes mellitus with other specified complication, unspecified whether custodial insulin use (CMS/HCC) USE DIRECTED FOUR TIMES DAILY AND ONCE EVERY 2 WEEKS WITH sensor. 100 each 08/04/19 24 025 Discontinued(R eorder (will not trigger notification to Pharmacy)) TRUEplus Lancets 33G miscIndications :Type 2 diabetes mellitus with other specified complication, unspecified whether custodial insulin use (CMS/HCC) Use to test blood sugar up to 4 times daily, as directed. 100 each 08/14/19 24 025 Discontinued(R eorder (will not trigger notification to Pharmacy)) glucose blood (FreeStyle Precision Jono Test) test stripIndication s:Type 2 diabetes mellitus with other specified complication, unspecified whether custodial insulin use (CMS/[facility]) Use to test blood sugar up to 4 times daily, as directed 100 each 08/14/19 24 025 Discontinued(R eorder (will not trigger notification to Pharmacy)) Active Problems Problem Noted Date Diagnosed Date Stage 3b chronic kidney disease 01/17/2023 History of tympanoplasty 05/27/2022 Overview (05/27/2022): Left side, 2018, Dr Osofsky Urinary incontinence 05/25/2022 Vascular insufficiency 05/25/2022 Carpal [...] Encounters Date Type Department Care Team Description 08/16/2024 Travel 08/02/2024 Orders Only [facility] External Provider, [facility] 07/05/2024 Travel 05/24/2024 Refill [facility] MEDICINE [address] [place] [address] Brittney Mathias, PharmD Type 2 diabetes mellitus with other specified complication, unspecified whether custodial insulin use ([facility]) from Last 3 Months Immunizations Name Administration [...] Sign Reading Time Taken Comments Blood Pressure 144/72 08/16/2024 9:50 AM EDT Pulse 69 06/23/2023 11:33 AM EST Temperature 36.6 ??C (97.8 ??F) 06/23/2023 11:[address] Respiratory Rate 17 06/23/2023 11:33 AM EST Oxygen Saturation 98% 06/23/2023 11:33 AM EST Inhaled Oxygen Concentration - - Weight 64.9 kg (143 lb) 08/16/2024 9:50 AM EDT Height 159 cm (5' 2.6 ) 04/03/2023 9:16 AM EST Body Mass Index 25.66 04/03/2023 9:16 AM EST Plan of Treatment Upcoming Encounters Date Type Department Care Team (Late st Contact Info) Description 09/27/2024 9:00 AM EDT Medication Management [facility] MEDICINE 230 [place] [address] Brittney Mathias, PharmD [address] [place] [address] Health Maintenance Due Date Last Done Comments [...] Procedure Name Priority Date/Time Associated Diagnosis Comments CT CHEST WO CONTRAST Routine 08/03/2024 8:45 AM EDT POCT GLYCATED HEMOGLOBIN, TOTAL Routine 06/07/2024 10:40 AM EST Type 2 diabetes mellitus with other specified complication, unspecified whether intermediate school teacher insulin use ([facility]) ALBUMIN, RANDOM URINE W/CREATININE Routine 03/25/2024 8:40 AM EST LIPID PANEL, STANDARD Routine 03/25/2024 8:40 AM EST from Last 3 Months or Most Recently Relevant to Health Maintenance Results * CT Chest w/o Contrast (08/03/2024 8:45 AM EDT) Anatomical Region Laterality Modality Body, Chest Computed Tomogra phy 08/03/2024 8:45 AM EDT Narrative 08/03/2024 8:46 AM EDT ? [facility] ?[address] ?[place] [address] ? CT Scan Report ? Signed ? Patient: Bezares Jatinder,Veda ?MR#: ?? [id number] ? : 1945 ?Acct:[id number] ? Age/Sex: 79 / F ?ADM Date: 08/02/24 ? Loc: HO.CT ? Attending Dr: Arden Cesar MD ? Ordering Physician: Arden Cesar MD ?? Date of Service: 08/02/24 ?? Procedure(s): CT chest wo IV con ?? Accession Number(s): [id number] ? cc: Name,Skip HANEY; Arden Cesar MD ? Report Number: ?? [id number]: Total DLP = ??101.00 mGy-cm ? CLINICAL HISTORY: R91.8 - Other nonspecific abnormal finding of lung field ? CT chest without contrast ? Comparison: 09/18/2023 ? Findings: ?? The heart is normal size. ?? The visualized thyroid and mediastinum are unremarkable. ? There are calcified granulomata in the left upper lobe. ?? The lungs are otherwise clear. ? The visualized upper abdomen is unremarkable. ?? No acute fractures. ? IMPRESSION: ?? 1. Sequelae of previous granulomatous disease. ? This document has been electronically signed by: Yakov Nguyễn MD on ?? 08/03/2024 08:45:22 ? Dictated By: ?Yakov Nguyễn MD ? Signed By: ?<Electronically signed by Yakov Nguyễn MD in OV> ?08/03/24 0846 ? DD/ 0845 ? TD/TT: 08/03/24 0845 ? Supervisor Shed Workers: ? Procedure Note Abdirahman, Haydee - 08/03/[address] [place] [id number] [address] Scan Report Signed Patient: Inocente Matias#: [id number] : 6Acct:[id number] Age/Sex: 79 / FADM Date: 08/02/24 Loc: HO.CT Attending Dr: Arden Cesar MD Ordering Physician: Arden Cesar MD Date of Service: 08/02/24 Procedure(s): CT chest wo IV con Accession Number(s): [id number] cc: Skip Marrero MD; Arden Cesar MD Report Number: [id number]: Total DLP = 101.00 mGy-cm CLINICAL HISTORY: R91.8 - Other nonspecific abnormal finding of lung field CT chest without contrast Comparison: 09/18/2023 Findings: The heart is normal size. The visualized thyroid and mediastinum are unremarkable. There are calcified granulomata in the left upper lobe. The lungs are otherwise clear. The visualized upper abdomen is unremarkable. No acute fractures. IMPRESSION: 1. Sequelae of previous granulomatous disease. This document has been electronically signed by: Yakov Nguyễn MD on 08/03/2024 08:45:22 Dictated By: Yakov Nguyễn MD Signed By: <Electronically signed by Yakov Nguyễn MD in OV> 08/03/2446 DD/ 4 TD/TT: 08/03/24844 Supervisor Shed Workers: [facility] External Provider IMG CT PROCEDURES Edited Result - Final * (ABNORMAL) POCT HGB A1C (06/07/2024 10:40 AM EST) Hemoglobin A1C 7.1(A) 4.0 - 6.0 % Blood 06/07/2024 10:4 0 AM EST us Skip Marrero MD POINT OF CARE TEST ENTER/EDIT OR DERABLES Final Result * Albumin, Random Urine W/Creatinine (03/25/2024 8:40 AM EST) Creatinine, Urine 81.23 mg/dL [facility] Microalbumin Urine <5.0 mg/L [facility] Microalbum Creatinine Ratio Ur TNP <30 ug/mg cr [facility] Comment:Unable to calculate albumin/creatinine ratio due to lowmicroalbumin or creatinine result. 03/25/2024 8:40 AM EST 03/25/2024 11:02 AM EST us Skip Marrero MD LAB URINE ORDERABLES Final Resul t [facility] [address] [place] [address] [place] [phone] * Lipid Panel, Standard (03/25/2024 8:40 AM EST) Triglycerides 89 <150 mg/dL [facility] Comment:Desirable Triglyceri de: less than 150 mg/dLBorderline High Triglyceride 150-199 mg/dLHigh Triglyceride: 200-499 mg/dLVery High Triglyceride: greater than or equal to 5OO mg/dL Cholesterol 111 <200 mg/dL [facility] Comment:Desirable Cholestero l: less than 200 mg/dLBorderline High Cholesterol: 200-239 mg/dLHigh Cholesterol: greater than 239 mg/dL LDL Cholesterol Calculated 49 <100 mg/dL [facility] Comment:Desirable LDL: less than 100 mg/dLNear Optimal/Above Optimal LDL: 110- 129 mg/dLBorderline High LDL: 130-159 mg/dLHigh LDL: 160-189 mg/dLVery High LDL: greater than or equal to 190 mg/dL HDL Cholesterol 45 >40 mg/dL [facility] Comment:Desirable HDL: great er than 40 mg/dL Note: This HDL assay may give artificially low results in patients with liver disease. 03/25/2024 8:40 AM EST 03/25/2024 11:06 AM EST us Skip Marrero MD LAB BLOOD ORDERABLES Final Resul t [facility] [address] [place] [address] [phone] from Last 3 Months or Most Recently Relevant to Health Maintenance Insurance [facility] Care Teams Ergonomics Technician Relationship Specialty Start Date End Date Name, MD Skip [address] [place] [address] PCP - General Family Medicine 05/01/17 Brittney Mathias, MiquelD [address] [place] [address] Pharmacist Internal Medicine 07/07/22
--- OUTSIDE RECORDS SUMMARY | 2024-08-21 11:36 | XMS_ITS | Encounter Summary ---
Author Organization [employer] Address 75 [facility] 7t [place] [address] Care Team Providers Care Finishing And Shipping Supervisor Name Role Phone Name, Skip HANEY Primary Care Provider [phone] Brittney Mathias PharmD Unavailable [phone] Reason for Visit * Reason Comments Med Refill Encounter Details Date Type Department Care Team ([facility] st Contact Info) Description 12/04/2022 Refill [facility] MEDICINE [address] [place], [place] [phone] Name, MD Skip [address] [place] [address] Essential hypertension Social History Tobacco Use Types [...] Description 09/27/2024 9:00 AM EDT Medication Management [facility] MEDICINE [address] [place] [address] Brittney Mathias PharmD [address] [place] [address] documented as of this encounter Goals Goal [...] hypertension documented in this encounter Care Teams Finishing And Shipping Supervisor Relationship Specialty Start Date End Date Name, MD Skip [address] [place] [address] PCP - General Family Medicine 05/01/17 Brittney Mathias, MiquelD [address] [place] [address] Pharmacist Internal Medicine 07/07/22 documented as of this encounter
--- OUTSIDE RECORDS SUMMARY | 2024-08-21 11:36 | XMS_ITS | Encounter Summary ---
Author Organization [employer] Address 75 [facility] 7t [place] [address] Care Team Providers Care Timber Cruiser Name Role Phone Name, Skip HANEY Primary Care Provider [phone] Brittney Mathias PharmD Unavailable [phone] Encounter Details Date Type Department Care Team (Latest Contact Info) Description 08/16/2024 Travel Social History Tobacco Use Types Packs/Day [...] 9:00 AM EDT Medication Management [facility] MEDICINE [address] [place] [address] Brittney Mathias PharmD [address] [place] [address] documented as of this encounter Goals Goal [...] on filedocumented in this encounter Care Teams Timber Cruiser Relationship Specialty Start Date End Date Name, MD Skip [address] [place] [address] PCP - General Family Medicine 05/01/17 Brittney Mathias PharmD [address] [place] [address] Pharmacist Internal Medicine 07/07/22 documented as of this encounter
[2024-08-21 12:06] LABS: Anion Gap 12 (12-20); Blood Urea Nitrogen 22 mg/dL (9-16); Calcium 8.8 mg/dL (8.4-10.2); Carbon Dioxide 25 mmol/L (22-29); Chloride 106 mmol/L (96-108); Estimated Glomerular Filt Rate 48; Glucose Random 243 mg/dL (60-115); Potassium 4.4 mmol/L (3.3-5.1); Sodium 139 mmol/L (135-145)
== END 2024-08-21 10:17 | disposition home or self-care (01) ==
LOC: HO.HHCL 10:16
PROVIDERS: Visit Provider Internal Medicine Geriatric Medicine
DX: E11.69 Type 2 diabetes mellitus with other specified complication (principal); I10 Essential (primary) hypertension
CPT/HCPCS: 36415; 80048

== ENCOUNTER 2024-10-17 10:43 | Outpatient (AMB) | payer OTHER, SELFPAY ==
--- NOTE | 2024-10-17 10:44 | MHC.OFFVIS ---
Vital Signs 10/17/24 10:50 BP 132/62 Intake Visit Reasons: Vaginal itch Admission Nurse Coordinator Required: Yes Admission Nurse Coordinator Language: Echocardiography Tech Services: Admission Nurse Coordinator Present Admission Nurse Coordinator Name: Ale Information Interpreted: non-clinical & clinical Health Services Information Specialist: Health Services Information Specialist Present (Roxanne) Allergies metformin Adverse Reaction (Intermediate, Uncoded 10/17/24 10:49) Diarrhea HPI Comments Details: Patient is here today complaints of vaginal itching for the last 2 weeks. History of diabetes. Not sexually active in over 20 years. She denies any pelvic pain or vaginal discharge. Uses depends during the day, overnight goes without underclothes. [facility] Medical History Chest discomfort Pre-op examination Dyspnea on exertion Urgency of micturition Shortness of breath Irritable bowel syndrome with diarrhea Other and unspecified hyperlipidemia Essential hypertension Type 2 diabetes mellitus with unspecified complications Surgical History History of esophagogastroduodenoscopy (EGD) History of section Family History Father No problems noted. Mother No problems noted. Social History Household Members: None Housing: Apartment Alcohol intake: never Patient Tobacco Use Status: Former Tobacco user Tobacco use type: Cigarette Years Smoked: 10 Current occupational status: disabled Sexual orientation: Straight/Heterosexual Gender identity: Female Review of Systems Const All systems reviewed & are unremarkable except as noted in HPI and below Physical Exam Vital Signs: Last Vital Signs BP 132/62 10/17/24 10:50 Const General: cooperative, healthy appearing and no acute distress Orientation/consciousness: patient oriented x3 GI Inspection: Yes normal to inspection Palpation (GI): Soft to palpation and Other GI palpation findings present (Nontender) Rectal Exam - Female: visual inspection normal Other: External: Bilateral labial erythema and edema, shaven vulva, no lesions or excoriations. General: Yes bladder normal to palpation External Female Exam: normal appearance of the urethra, erythema and external swelling Speculum Exam - Vagina: normal appearance of the vagina, normal palpation, normal vaginal discharge and vagina atrophic Speculum Exam - Cervix: normal appearance of the cervix and normal palpation Bimanual exam- vagina & uterus: normal bimanual exam, normal palpation, uterine size normal, bladder normal to palpation, normal palpation, uterine shape normal and non-tender Bimanual Exam- Adnexa, other: normal adnexae Neuro General: patient oriented x3 Assessment & Plan Assessment & Plan (1) Vulvar itching: Code(s): L29.2 - Pruritus vulvae Plan Instructions: Clean with warm water, no soaps, scented products. Use a cool cloth to the area several times a day if swollen and/or uncomfortable. Wear loose, cotton underclothes, avoid tight outer clothing. Discontinue shaving. Air when possible. Complete all medications as prescribed. Await final pending results for any changes in the plan of care. Call the office if there is no improvement in 24-48hrs., or if worsening symptoms. The patient expressed understanding and agreement with the plan of care. All of her questions and concerns were addressed to the best of my ability. This note is constructed using voice recognition software. While every effort has been made to ensure accuracy, software test technician errors may have been included. Orders: Orders Bacterial Vaginosis Panel Today N89.8 - Other specified noninflammatory disorders of vagina Medications: New clotrimazole-betamethasone 1-0.05 % apply externally a thin coat to the area 1 appl topical BID 7 days 45 grams 0RF itching Coding Level of Care Code Est Pt Level 3 (31412) Diagnoses Vulvar itching L29.2
[2024-10-17 10:50] VITALS: BP 132/62
--- OUTSIDE RECORDS SUMMARY | 2024-10-17 12:37 | XMS_ITS | Encounter Summary ---
Author Organization [employer] Address [address] [facility] [address] [place] [address] Care Team Providers Care Animal Pathology Teacher Name Role Phone Name, Skip HANEY Primary Care Provider [phone] Brittney Mathias PharmD Unavailable [phone] Encounter Details Date Type Department Care Team (Late st Contact Info) Description 06/28/2023 Telephone [facility] MEDICINE [address] [place], [place] [phone] Rito Bateman MD [address] [place] [address] Social History Tobacco Use Types Packs/Day Years [...] Care Team (Late st Contact Info) Description 10/30/2024 9:00 AM EDT Medication Management [facility] MEDICINE [address] [place] [address] [phone] Brittney Mathias PharmD [address] [place] [address] [phone] 12/24/2024 9:00 AM EDT Office Visit [address] [phone] Name, MD Skip [address] [place] [address] [phone] documented as of this encounter Goals Goal Patient Goal Type Associated Problems Recent Progress Patient-Stated? Author Hemoglobin A1c < 8 Result Component 7.1( 10:00 AM EDT) No Brittney Mathias PharmSarath Record your blood sugar as directed Result Component On track( 023 10:52 AM EST) No Brittney Mathias PharmD Note: SMBG via CGM, ensuring sensor is scanned at least once every 8 hours. Check manual BG as needed & as directed. documented as of this encounter Visit Diagnoses Not on filedocumented in this encounter Care Teams Animal Pathology Teacher Relationship Specialty Start Date End Date Name, MD Skip [address] [place] [address] [phone] PCP - General Family Medicine 05/01/17 Brittney Mathias PharmD [address] [place] [address] [phone] Pharmacist Internal Medicine 07/07/22 documented as of this encounter
== END 2024-10-17 11:41 | disposition home or self-care (01) ==
LOC: HO.HWS 10:43
PROVIDERS: PCP Internal Medicine Geriatric Medicine; Visit Provider Advanced Practice Midwife
DX: L29.2 Pruritus vulvae (principal)
CPT/HCPCS: 99213

== ENCOUNTER 2024-10-17 10:43 | Outpatient (REF) | payer OTHER, SELFPAY ==
[2024-10-17 17:27] LABS: Bacterial Vaginosis PCR NEGATIVE (Negative); Candida Group PCR DETECTED (Not Detect); Candida glab krusei PCR DETECTED (Not Detect); Trichomonas vaginalis PCR NOT DETECTED (Not Detect)
== END 2024-10-17 10:44 | disposition home or self-care (01) ==
LOC: HO.LAB 10:43
PROVIDERS: PCP Internal Medicine Geriatric Medicine; Visit Provider Advanced Practice Midwife
DX: L29.2 Pruritus vulvae (principal); N89.8 Other specified noninflammatory disorders of vagina
CPT/HCPCS: 81515; 99212

== ENCOUNTER 2024-10-24 09:29 | Outpatient (REF) | payer OTHER, SELFPAY ==
--- OUTSIDE RECORDS SUMMARY | 2024-10-24 10:22 | XMS_ITS | Encounter Summary ---
Author Organization [employer] Address [address] [place] [address] Care Team Providers Care Machine Brusher Name Role Phone Name, Skip HANEY Primary Care Provider [phone] Brittney Mathias PharmD Unavailable [phone] Encounter Details Date Type Department Care Team (Late st Contact Info) Description 06/28/2023 Telephone [facility] [address] [place], [place] [phone] Rito Bateman MD [address] [place] [address] Social History Tobacco Use Types Packs/Day Years [...] Description 10/30/2024 9:00 AM EDT Medication Management [facility] [address] [place] [address] [phone] Brittney Mathias PharmD [address] [place] [address] [phone] 12/24/2024 9:00 AM EDT Office Visit [address] [phone] Name, MD Skip [address] [place] [address] [phone] documented as of this encounter Goals Goal [...] on filedocumented in this encounter Care Teams Machine Brusher Relationship Specialty Start Date End Date Name, MD Skip [address] [place] [address] [phone] PCP - General Family Medicine 05/01/17 Brittney Mathias PharmD [address] [place] [address] [phone] Pharmacist Internal Medicine 07/07/22 documented as of this encounter
[2024-10-24 11:33] LABS: Alanine Aminotransferase 19 U/L (0-31); Albumin Level 4.6 g/dL (3.5-5.0); Alkaline Phosphatase 73 U/L (39-117); Anion Gap 11 (12-20); Aspartate Amino Transferase 26 U/L (5-31); Bilirubin Direct 0.3 mg/dL (0.0-0.5); Bilirubin Total 1.1 mg/dL (0.0-1.0); Blood Urea Nitrogen 23 mg/dL (9-16); Calcium 9.3 mg/dL (8.4-10.2); Carbon Dioxide 28 mmol/L (22-29); Chloride 106 mmol/L (96-108); Cholesterol 143 mg/dL (<200); Estimated Glomerular Filt Rate > 60; Glucose Random 105 mg/dL (60-115); HDL Cholesterol 59 mg/dL (>40); LDL Cholesterol Calculated 68 mg/dL (<100); Potassium 4.5 mmol/L (3.3-5.1); Sodium 140 mmol/L (135-145); Total Protein 7.4 g/dL (6.5-8.0); Triglycerides 84 mg/dL (<150)
== END 2024-10-24 09:30 | disposition home or self-care (01) ==
LOC: HO.HHCL 09:29
PROVIDERS: Visit Provider Internal Medicine Geriatric Medicine
DX: E11.69 Type 2 diabetes mellitus with other specified complication (principal); I10 Essential (primary) hypertension
CPT/HCPCS: 36415; 80048; 80061; 80076

== ENCOUNTER 2024-12-22 12:16 | Emergency (ER) | payer OTHER, SELFPAY ==
--- NOTE | 2024-12-22 | ECG_ITS ---
Test Reason : chest pain Blood Pressure : */* mmHG Vent. Rate : 62 BPM Atrial Rate : 62 BPM P-R Int : 224 ms QRS Dur : 74 ms QT Int : 404 ms P-R-T Axes : 50 -27 -4 degrees QTcB Int : 410 ms Sinus rhythm with 1st degree A-V block Inferior infarct (cited on or before 22-Dec-2024) Anteroseptal infarct (cited on or before 22-Dec-2024) Abnormal ECG When compared with ECG of 22-Dec-2024 12:34, Questionable change in initial forces of Lateral leads Referred By: Chong Kirby Electronically Signed By: Zay Hooks
--- NOTE | ~2024-12-22 | CT_ITS ---
CLINICAL HISTORY: LLQ pain CT abdomen and pelvis with contrast Comparison: CR - XR KUB - 12/22/24 15:[address]/SR - CT CHEST WO IV CON - 08/02/24 08:39 EDT Findings: CT abdomen: Minor areas of dependent atelectasis within the lower lobes. No focal areas of consolidation. No pleural effusion or pneumothorax. No acute bony abnormality. Scattered degenerative disc disease and degenerative facet disease throughout the visualized portions of the thoracolumbar spine. 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 Air-fluid level seen within the distal esophagus with mild esophageal dilation. There is a fat containing hiatal hernia. Moderate ingested contents within the stomach. No dilated small bowel. No free fluid or free air. Gallbladder is contracted. No calcified gallstones. No focal hepatic lesions. Main portal vein is patent. Spleen, pancreas, adrenal glands, and kidneys are unremarkable for acute findings. CT pelvis: Fat containing umbilical hernia. Numerous diverticuli within the colon. No findings of diverticulitis. Scattered calcifications within the uterus suggesting degenerated fibroids. No adnexal masses. No free fluid or free air. IMPRESSION: No acute imaging explanation for the patient's symptoms. This document has been electronically signed by: Colin Doe MD on 12/22/2024 18:42:26
--- NOTE | ~2024-12-22 | XR_ITS ---
CLINICAL HISTORY: LLQ abd pain, hx constipation Exam: Supine abdominal radiographs Comparison: CT/SR - CT CHEST WO IV CON - 08/02/24 08:39 EDT Findings: Air-filled loops of nondilated large and small bowel are seen throughout the abdomen and pelvis. No differential dilatation between large and small bowel is seen to suggest obstruction. Moderate stool throughout the colon. No indirect evidence for free air on this supine exam. Scattered phleboliths within the pelvis. Lung bases are clear. No acute bony abnormality. IMPRESSION: No acute findings. This document has been electronically signed by: Colin Doe MD on 12/22/2024 16:34:20
[2024-12-22 12:23] VITALS: BP 163/73; PULSE 73; RESP 16; TEMP 37.1; O2SAT 95; BMI 25.4
--- NOTE | 2024-12-22 12:35 | ECG_ITS ---
Test Reason : AP Blood Pressure : */* mmHG Vent. Rate : 79 BPM Atrial Rate : 79 BPM P-R Int : 252 ms QRS Dur : 82 ms QT Int : 352 ms P-R-T Axes : 45 -33 6 degrees QTcB Int : 403 ms Sinus rhythm with 1st degree A-V block Left axis deviation Minimal voltage criteria for LVH, may be normal variant ( R in aVL ) Inferior infarct , age undetermined Anterolateral infarct , age undetermined Abnormal ECG No previous ECGs available Referred By: Generic ED Physician Electronically Signed By: Zay Hooks
--- NOTE | 2024-12-22 12:41 | ED.GENADULT ---
HPI - General Adult General Chief complaint: Abdominal Pain Stated complaint: lower Left abd pain Time Seen by Provider: 12/22/24 15:16 Source: patient and silhouette artist (icelandic) Mode of arrival: ambulatory Limitations: language barrier (icelandic) History of Present Illness ED Provider: BIRGIT LESTER PA-C HPI narrative: 79 year old female with pmhx significant for T2DM, GERD, HTN, IBS-C/D, hypothyroidism, CKD, asthma presents to the ED today for evaluation of left lower quadrant abdominal pain that began this morning. Reports her abdomen feels bloated . Denies N/V. Related Data Home Medications ?Medication ?Instructions ?Recorded ?Confirmed aspirin 81 mg tablet,delayed 81 mg PO DAILY 06/11/20 01/19/24 release atorvastatin 40 mg tablet 40 mg PO DAILY 06/11/20 01/19/24 enalapril maleate 20 mg tablet 20 mg PO DAILY 06/11/20 01/19/24 hydrochlorothiazide 25 mg tablet 25 mg PO DAILY 06/11/20 01/19/24 alcohol swabs (Alcohol Prep Pads) pad topical BID 01/29/21 01/19/24 blood sugar diagnostic (FreeStyle #10 ea 01/29/21 06/23/23 Lite Strips) insulin syringe-needle U-100 1 mL #10 ea 01/29/21 06/23/23 31 gauge x 09/27 empagliflozin 25 mg tablet 25 mg PO DAILY 09/06/22 01/19/24 (Jardiance) insulin degludec 200 unit/mL (3 68 unit subcut QPM 09/06/22 01/19/24 mL) subcutaneous pen (Tresiba FlexTouch U-200 insulin) sertraline 50 mg tablet 50 mg PO DAILY 09/06/22 01/19/24 trazodone 50 mg tablet 50 mg PO BEDTIME PRN insomnia 10/06/22 01/19/24 bupropion HCl 300 mg 24 hr tablet, 300 mg PO DAILY 04/05/23 01/19/24 extended release mirtazapine 7.5 mg tablet 7.5 mg PO BEDTIME 04/05/23 01/19/24 semaglutide 1 mg/dose (4 mg/3 mL) 1 mg subcut QWEEK 11/07/23 01/19/24 subcutaneous pen injector (Ozempic) Previous Rx's ?Medication ?Instructions ?Recorded sodium,potassium,mag sulfates 17.5 480 ml PO .COMPLEX colonoscopy 04/05/23 gram-3.13 gram-1.6 gram oral soln #354 mL (Suprep Bowel Prep Kit) bisacodyl 5 mg tablet,delayed 10 mg (2 x 5 mg) PO BEDTIME #60 07/07/23 release tabs sodium,potassium,mag sulfates 17.5 See Rx Instructions PO .COMPLEX 10/06/23 gram-3.13 gram-1.6 gram oral soln #354 mL (Suprep Bowel Prep Kit) bisacodyl 5 mg tablet,delayed 20 mg (4 x 5 mg) PO ONCE 1 day #4 10/13/23 release (Dulcolax (bisacodyl)) tabs peg 3350-electrolytes 236 240 ml PO Q10M #4,000 mL 10/13/23 gram-22.74 gram-6.74 gram-5.86 gram solution docusate sodium 100 mg capsule 100 mg PO QAM #30 caps 04/01/24 albuterol sulfate 90 mcg/actuation 2 puff inhalation 6XD PRN 05/03/24 aerosol inhaler shortness of breath or wheezing #1 ea rabeprazole 20 mg tablet,delayed 20 mg PO BID #60 tabs 05/31/24 release metoclopramide HCl 5 mg tablet 5 mg PO TID #90 tabs 07/04/24 clotrimazole-betamethasone 1 1 appl topical BID itching 7 days 10/17/24 %-0.05 % topical cream #45 grams miconazole nitrate 2 % vaginal 1 appful vaginal BEDTIME 7 days 10/22/24 cream (Miconazole-7) #45 grams Allergies Allergy/AdvReac Type Severity Reaction Status Date / Time metformin AdvReac Intermediate Diarrhea Uncoded 12/22/24 12:28 Review of Systems Review of Systems: Yes all other systems are reviewed and are negative PMFSH Past Medical History Attestation statement: The following information was validated with the patient. Source: old records reviewed and nursing notes reviewed Medical History Chest discomfort Pre-op examination Dyspnea on exertion Urgency of micturition Shortness of breath Irritable bowel syndrome with diarrhea Other and unspecified hyperlipidemia Essential hypertension Type 2 diabetes mellitus with unspecified complications Surgical History History of esophagogastroduodenoscopy (EGD) History of section Family History Family History Father No problems noted. Mother No problems noted. Social History Social History Household Members: None Housing: Apartment Alcohol intake: former Patient Tobacco Use Status: Former Tobacco user Tobacco use type: Cigarette Years Smoked: 10 Current occupational status: disabled Sexual orientation: Straight/Heterosexual Gender identity: Female Physical Exam ED Vital Signs: Vital Signs - 24 hr 12/22/24 12:23 12/22/24 14:00 12/22/24 16:00 Temperature 98.7 F 98.1 F 98.2 F Pulse Rate 73 100 101 H Respiratory Rate 16 15 15 Blood Pressure 163/73 H 154/68 H 150/70 H Pulse Oximetry 95 98 99 Oxygen Delivery Method Room Air Room Air Room Air 12/22/24 17:48 12/22/24 19:20 Temperature 98.2 F 98.0 F Pulse Rate 100 61 Respiratory Rate 15 15 Blood Pressure 154/65 H 172/72 H Pulse Oximetry 98 97 Oxygen Delivery Method Room Air Room Air BMI result Body Mass Index 25.4 Hypertensive, vitals otherwise WNL. Afebrile. General: Well appearing, in no acute distress. Skin: Warm, dry, intact. No rashes or lesions. Head: Normocephalic, atraumatic. EENT: Hearing is intact b/l. Conjunctiva clear. PERRLA. EOM intact. Moist mucous membranes.? Cardiac: Chest wall symmetric. RRR Lungs: Normal respiratory effort without accessory muscle use. CTA bilaterally Abdomen: Soft, non-tender, non-distended. No rebound tenderness or guarding. Positive BS x4.. Ext: Upper and lower extremities atraumatic, without tenderness, deformity, swelling or erythema Neuro: AOx3. Normal speech. Ambulating with steady gait. Course Course Course Narrative: Rapid medical examination performed in triage by Kellee Sierra PA-C. Patient is a 79 year old assigned female at presenting to the emergency department with abdominal pain. Detailed physical exam and review of systems are deferred to the high energy forming equipment operator. Labs ordered. Patient placed back in the waiting room pending room availability and results. Reevaluation(s) Reevaluation #1: 2100 -- CBC without leukocytosis or left shift. No anemia. H&H stable. Chemistry without acute electrolyte abnormality requiring intervention. Renal function is at baseline. Random glucose 179, no gap. Liver function WNL. Troponin undetectable. EKG showing sinus rhythm with first-degree AV block, rate of 62 beats per minute, no acute ischemic changes or ST elevations. Similar to prior EKGs. Lipase WNL. Urine is not infected. KUB does not demonstrate significant stool burden or bowel obstruction. CT abdomen/pelvis unremarkable. > I discussed all workup results with patient. On reassessment, patient is now reporting chest pain. I have ordered repeat troponin and repeat ekg. > patient is stable at the end of my shift. Sign-out given to tayler ibarra pending cardiac work up and disposition. 9:30 PM 12/22/2024 (Kevin LUNA): Patient was signed out to this provider at shift change, in summary the patient is a 79-year-old female presenting to the ED initially for left lower quadrant abdominal pain. Patient was evaluated with CT abdomen and pelvis, KUB, urinalysis, and laboratory workup. Patient's workup was unremarkable. Upon reassessment by the initial provider however the patient began complaining of chest pain. The patient's initial troponin was negative, an EKG was also obtained and was negative for acute ischemia. The patient was ordered for additional pain management and repeat troponin. Patient was signed out pending repeat troponin and reassessment. At this time the patient is now refusing any additional intervention or workup and is demanding to be discharged home, declining repeat troponin draw. Seeing as the patient was complaining of chest pain, and has not had serial troponins we will sign out the patient against medical advice. The patient is currently oriented to person, time, and place, and exhibits no clinical evidence of exogenous intoxication to a level that would impair her ability to delineate a choice. The patient was able to communicate her reason to forgo additional laboratory evaluation and observation. The patient demonstrated her understanding of this provider's concern for undiagnosed ischemic cardiac disease by repeating the stated concern in her own terms. The patient was able to state her understanding of the potential negative outcomes of failing to diagnose and treat her condition, including continued or worsening pain, permanent disability or disfigurement, a decreased quality of life, or . As such, the patient demonstrated capacity to make her own medical decisions regardless of whether this provider agrees with her reasoning. The patient was strongly encouraged to follow up with her PCP or specialist for continued care. She was also advised that she is welcome to return to the ED at any time for re-evaluation, regardless of her current decision to leave against medical advice. Medications Administered Discontinued Medications Generic Name Dose Route Start Last Admin Trade Name Fretad PRN Reason Stop Dose Admin Sodium Chloride 1,000 mls @ 999 mls/hr 12/22/24 18:00 12/22/24 20:32 Ns IV 12/22/24 19:00 Infused .Q1H1M SHERI Infusion Acetaminophen 1,000 mg in 100 mls @ 400 mls/hr 12/22/24 17:48 12/22/24 18:34 Ofirmev IV 12/22/24 18:02 Infused ONCE ONE Infusion Iohexol 100 ml 12/22/24 17:51 12/22/24 17:51 Iohexol 350 Mg/Ml 100 Ml Infus..Btl IV 12/22/24 17:52 85 ml ONCE ONE Administration Morphine Sulfate 4 mg 12/22/24 21:12 12/22/24 21:33 Morphine Sulfate 4 Mg/Ml Cartridge IVPUSH 12/22/24 21:13 Not Given ONCE ONE Protocol Medical Decision Making Medical Decision Making [facility] Narrative: 79 year old female with pmhx significant for T2DM, GERD, HTN, IBS-C/D, hypothyroidism, CKD, asthma presents to the ED today for evaluation of left lower quadrant abdominal pain that began this morning. Patient is hypertensive, vitals are otherwise WNL. Abdomen is soft, nondistended, nontender to palpation, no rebound or guarding, active bowel sounds throughout. Differential diagnosis includes anemia, electrolyte abnormality, diverticulosis, diverticulitis, colitis, constipation. Lower suspicion for acute abdomen, UTI, nephrolithiasis. Plan for labs, KUB, UA, re-evaluation. Differential Diagnosis Differential Diagnoses: The differential diagnosis associated with the presentation includes As above Admission/Observation Not indicated Lab Data [facility] Lab Attestation statement: I reviewed the patient's lab results. As above 12/22/24 12:43 12/22/24 12:43 Labs: Lab Results 12/22/24 12/22/24 12/22/24 Range/Units 12:43 15:27 16:59 WBC 7.1 (4.8-10.8) X10*3/uL RBC 4.78 (4.20-5.50) X10*6/uL Hgb 14.0 (12.0-16.0) g/dl Hct 41.4 (37.0-47.0) % MCV 86.6 (80.0-98.0) fL MCH 29.3 (27.0-33.0) pg MCHC 33.8 (31.0-35.0) g/dl RDW 12.4 (11.0-16.0) % Plt Count 216 (160-400) X10*3/uL MPV 9.6 (9.4-12.3) fL Immature Gran % (Auto) 0.1 (0.0-0.4) % Neut % (Auto) 66.0 (45-73) % Lymph % (Auto) 26.6 (20-40) % Oldham % (Auto) 5.6 (2-11) % Eos % (Auto) 1.3 (0-4) % Baso % (Auto) 0.4 (0-2) % Lymph # (Auto) 1.9 (1.2-4.9) X10*3/uL [place]ham # (Auto) 0.4 (0.1-1.2) X10*3/uL Eos # (Auto) 0.1 (0.0-0.4) X10*3/uL Baso # (Auto) 0.0 (0.0-0.2) X10*3/uL Abs Immat Gran (auto) 0.01 (0.00-0.03) X10*3/uL Absolute Neuts (auto) 4.7 (2.0-8.3) x10*3/uL Absolute Nucleated RBC 0.000 (0.0-0.012) X10*3/uL Nucleated RBC % (auto) 0.0 (0.0-0.2) /100WBC Sodium 138 (135-145) mmol/L Potassium 4.2 (3.3-5.1) mmol/L Chloride 106 (96-108) mmol/L Carbon Dioxide 24 (22-29) mmol/L Anion Gap 12 (12-20) BUN 18 H (9-16) mg/dL Creatinine 0.90 (0.5-1.4) mg/dL Estim Creat Clear Calc 48.5 Estimated GFR > 60 POC Glucose 117 H (60-115) mg/dL Random Glucose 179 H (60-115) mg/dL Calcium 8.6 D (8.4-10.2) mg/dL Magnesium 2.2 (1.6-2.6) mg/dL Total Bilirubin 0.6 (0.0-1.0) mg/dL Direct Bilirubin 0.2 (0.0-0.5) mg/dL AST 31 (5-31) U/L ALT 26 (0-31) U/L Alkaline Phosphatase 83 (39-117) U/L Troponin I High Sens < 2.7 (<3.5-17.0) ng/L Total Protein 7.1 (6.5-8.0) g/dL Albumin 4.3 (3.5-5.0) g/dL Lipase 27 (8-78) U/L Urine Color Yellow Urine Appearance Clear Urine pH 5.5 (5.0-9.0) Ur Specific [place] 1.015 (1.005-1.025) Urine Protein Negative (Neg-Trace) mg/dL Urine Glucose (UA) >=1000 H (Negative) mg/dL Urine Ketones Negative (Negative) mg/dL Urine Blood Negative (Negative) Urine Nitrite Negative (Negative) Ur Leukocyte Esterase Negative (Negative) Urine RBC 0-2 (0-2) /HPF Urine WBC 0-5 (0-5) /HPF Ur Squamous Epith Cells 0-2 (0-2) /HPF Urine Bacteria None Seen (None Seen) Hyaline Casts 0-2 (0-2) /LPF Independent Interpretation I performed an independent interpretation of an: EKG Interpretation: EKG showing sinus rhythm with first-degree AV block, rate of 62 beats per minute, no acute ischemic changes or ST elevation Repeat EKG showing sinus rhythm with first-degree AV block, rate of 79 beats per minute, no acute ischemic changes or ST elevations CT abdomen/pelvis without bowel obstruction KUB without significant stool burden or bowel obstruction Radiology Impression Discussion of test interpretation with radiology: I have reviewed the radiologist's reading. Radiologist Impression: Date of Service: 12/22/24 Procedure(s): XR KUB Accession Number(s): [id number] cc: Name,Skip HANEY; Birgit Lester~ CLINICAL HISTORY: LLQ abd pain, hx constipation Exam: Supine abdominal radiographs Comparison: CT/SR - CT CHEST WO IV CON - 08/02/24 08:39 EDT Findings: Air-filled loops of nondilated large and small bowel are seen throughout the abdomen and pelvis. No differential dilatation between large and small bowel is seen to suggest obstruction. Moderate stool throughout the colon. No indirect evidence for free air on this supine exam. Scattered phleboliths within the pelvis. Lung bases are clear. No acute bony abnormality. IMPRESSION: No acute findings. This document has been electronically signed by: Colin Doe MD on 12/22/2024 16:34:20 Date of Service: 12/22/24 Procedure(s): CT abdomen pelvis w IV con Accession Number(s): [id number] cc: Name,Skip HANEY; Birgit Lester~ Report Number: [id number]: Total DLP = 0.00 mGy-cm CLINICAL HISTORY: LLQ pain CT abdomen and pelvis with contrast Comparison: CR - XR KUB - 12/22/24 15:[address]/SR - CT CHEST WO IV CON - 08/02/24 08:39 EDT Findings: CT abdomen: Minor areas of dependent atelectasis within the lower lobes. No focal areas of consolidation. No pleural effusion or pneumothorax. No acute bony abnormality. Scattered degenerative disc disease and degenerative facet disease throughout the visualized portions of the thoracolumbar spine. 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 Air-fluid level seen within the distal esophagus with mild esophageal dilation. There is a fat containing hiatal hernia. Moderate ingested contents within the stomach. No dilated small bowel. No free fluid or free air. Gallbladder is contracted. No calcified gallstones. No focal hepatic lesions. Main portal vein is patent. Spleen, pancreas, adrenal glands, and kidneys are unremarkable for acute findings. CT pelvis: Fat containing umbilical hernia. Numerous diverticuli within the colon. No findings of diverticulitis. Scattered calcifications within the uterus suggesting degenerated fibroids. No adnexal masses. No free fluid or free air. IMPRESSION: No acute imaging explanation for the patient's symptoms. This document has been electronically signed by: Colin Doe MD on 12/22/2024 18:42:26 External Record Review External record reviewed: Inpatient record Social Determinants Patient?s care significantly limited by Social Determinants of Health including: Other Social Determinant of Health Critical Care Time Critical Care Time Critical Care Time: No Discharge Plan Discharge Clinical Impression: Abdominal pain, Atypical chest pain Patient Disposition: Left Against Medical Advice Instructions: Chest Pain (ED), Abdominal Pain (ED), Noncardiac Chest Pain (ED) Additional Instructions: Thank you for choosing [facility]'s Emergency Department for your care today. Your laboratory evaluation, urinalysis, abdominal CT scan, EKG, and abdominal x-ray show no evidence of any acute emergent process requiring admission to the hospital or continued ED observation. Per your request, you did not wish to remain in the ED for repeat cardiac enzymes, as such we are unable to rule out cardiac cause for your chest pain which developed while here in the emergency department Per your request we are discharging you against medical advice. Please follow up with your primary care physician for re-evaluation, additional management of your symptoms, and continued preventative care. If you do not have a primary care physician, please call the [facility] at [phone] to establish a new primary care physician. While waiting to establish your new primary care physician, you can call our [facility] at [phone] for non-emergency needs. Please return to the emergency department if you develop a severe or sudden change in your symptoms, a fever over 100.4 that does not improve with Tylenol or Ibuprofen, recurrent vomiting, or any other new or worsening symptoms or concerns. Prescriptions: No Action sodium,potassium,mag sulfates [Suprep Bowel Prep Kit] 17.5-3.13-1.6 gram recon soln See Rx Instructions PO .COMPLEX Qty: 354 0RF Rx Instructions: DILUTE each bottle with 16oz of water; drink first bottle 5pm evening before procedure AND second bottle at 11pm; follow each bottle with at least 32 oz.of water within 1 hour after each bottle bisacodyl [Dulcolax (bisacodyl)] 5 mg tablet,delayed release (DR/EC) 20 mg PO ONCE 1 Days Qty: 4 0RF Rx Instructions: take at noon the day before colonoscopy peg 3350-electrolytes 236-22.74-6.74 -5.86 gram recon soln 240 ml PO Q10M Qty: 4000 0RF Rx Instructions: Refer to prep instructions given/ mailed to you from GI OFFICE. until fecal effluent is clear docusate sodium 100 mg capsule 100 mg PO QAM Qty: 30 6RF rabeprazole 20 mg tablet,delayed release (DR/EC) 20 mg PO BID Qty: 60 6RF metoclopramide HCl 5 mg tablet 5 mg PO TID Qty: 90 3RF miconazole nitrate [Miconazole-7] 2 % cream 1 appful vaginal BEDTIME 7 Days Qty: 45 0RF aspirin 81 mg tablet,delayed release (DR/EC) 81 mg PO DAILY atorvastatin 40 mg tablet 40 mg PO DAILY enalapril maleate 20 mg tablet 20 mg PO DAILY hydrochlorothiazide 25 mg tablet 25 mg PO DAILY alcohol swabs [Alcohol Prep Pads] Pads, Medicated topical BID (DME) insulin syringe-needle U-100 1 mL 31 gauge x 5/16 syringe See Rx Instructions subcut QID Qty: 10 Rx Instructions: As directed (DME) FreeStyle Lite Strips Strip See Rx Instructions Not Applicable .MEDSUPPLY Qty: 10 Rx Instructions: As directed bupropion HCl 300 mg tablet extended release 24 hr 300 mg PO DAILY mirtazapine 7.5 mg tablet 7.5 mg PO BEDTIME sodium,potassium,mag sulfates [Suprep Bowel Prep Kit] 17.5-3.13-1.6 gram recon soln 480 ml PO .COMPLEX Qty: 354 0RF Rx Instructions: 480 mL orally; Ozempic 1 mg/dose (4 mg/3 mL) pen injector 1 mg subcut QWEEK albuterol sulfate 90 mcg/actuation HFA aerosol inhaler 2 puff inhalation 6XD PRN (Reason: shortness of breath or wheezing) Qty: 1 6RF insulin degludec [Tresiba FlexTouch U-200] 200 unit/mL (3 mL) insulin pen 68 unit subcut QPM sertraline 50 mg tablet 50 mg PO DAILY Jardiance 25 mg tablet 25 mg PO DAILY trazodone 50 mg tablet 50 mg PO BEDTIME PRN (Reason: insomnia) bisacodyl 5 mg tablet,delayed release (DR/EC) 10 mg PO BEDTIME Qty: 60 6RF clotrimazole-betamethasone 1-0.05 % cream 1 appl topical BID 7 Days Qty: 45 0RF Rx Instructions: apply externally a thin coat to the area Referrals: Name,MD Skip [Primary Care Provider, Internal Medicine] Clinical Impression: Atypical chest pain; Abdominal pain Stand Alone Forms: Against Medical Advice Interventions: ED Discharge Assessment Last Done: 12/22/24 21:52 Discharge Date/Time: 12/22/24 21:53 Print Language: Czech
[2024-12-22 12:48] LABS: MANUAL DIFF FLAG NO
[2024-12-22 12:57] LABS: Hematocrit 41.4 % (37.0-47.0); Hemoglobin 14.0 g/dl (12.0-16.0); Imm Gran Abs Auto 0.01 X10*3/uL (0.00-0.03); Imm Gran Pct Auto 0.1 % (0.0-0.4); Lymphocytes Absolute Auto 1.9 X10*3/uL (1.2-4.9); Mean Corpuscular HGB Conc 33.8 g/dl (31.0-35.0); Mean Corpuscular Hemoglobin 29.3 pg (27.0-33.0); Mean Corpuscular Volume 86.6 fL (80.0-98.0); NRBC Abs Auto 0.000 X10*3/uL (0.0-0.012); NRBC Pct Auto 0.0 /100WBC (0.0-0.2); Platelet Count 216 X10*3/uL (160-400); Red Blood Count 4.78 X10*6/uL (4.20-5.50); White Blood Count 7.1 X10*3/uL (4.8-10.8)
[2024-12-22 13:05] LABS: Alanine Aminotransferase 26 U/L (0-31); Albumin Level 4.3 g/dL (3.5-5.0); Alkaline Phosphatase 83 U/L (39-117); Anion Gap 12 (12-20); Aspartate Amino Transferase 31 U/L (5-31); Blood Urea Nitrogen 18 mg/dL (9-16); Calcium 8.6 mg/dL (8.4-10.2); Carbon Dioxide 24 mmol/L (22-29); Chloride 106 mmol/L (96-108); Creatinine Clr Calc Pharmacy 48.5; Estimated Glomerular Filt Rate > 60; Lipase 27 U/L (8-78); Magnesium 2.2 mg/dL (1.6-2.6); Potassium 4.2 mmol/L (3.3-5.1); Sodium 138 mmol/L (135-145); Total Protein 7.1 g/dL (6.5-8.0)
[2024-12-22 13:15] LABS: Troponin-I High Sensitivity < 2.7 ng/L (<3.5-17.0)
[2024-12-22 14:00] VITALS: BP 154/68; PULSE 100; RESP 15; TEMP 36.7; O2SAT 98
[2024-12-22 15:31] LABS: Glucose, Whole Blood 117 mg/dL (60-115)
[2024-12-22 16:00] VITALS: BP 150/70; PULSE 101; RESP 15; TEMP 36.8; O2SAT 99
[2024-12-22 17:25] LABS: Appearance Urine Clear; Glucose Urine UA >=1000 mg/dL (Negative); PH 5.5 (5.0-9.0); Specific Gravity - Urine 1.015 (1.005-1.025); UMIC TRIGGER UACC YES
[2024-12-22 17:48] VITALS: BP 154/65; PULSE 100; RESP 15; TEMP 36.8; O2SAT 98
[2024-12-22] MEDS: iohexoL 350 MG/ML 100 ML INFUS..BTL IV (17:51)
[2024-12-22 19:20] VITALS: BP 172/72; PULSE 61; RESP 15; TEMP 36.7; O2SAT 97
--- NOTE | 2024-12-22 19:30 | PC.NURSE ---
Pt reports midsternal, non radiating, chest pain after walking to the bathroom, 01/22, with sob. Provider at bedside. EKG done with no new findings. Trop to be done. VSS at this time. Monitoring is ongoing.
--- NOTE | 2024-12-22 21:33 | PC.NURSE ---
Pt states wanting to leave and is requesting for IV line to be removed. Pt does not want labs drawn and does not want the Morphine. IV line removed and provider made aware.
[2024-12-22 21:52] VITALS: BP 172/72; PULSE 61; RESP 15; TEMP 36.7; O2SAT 97
== END 2024-12-22 21:53 | disposition left against medical advice (07) ==
PROVIDERS: Emergency Provider Emergency Medicine; PCP Internal Medicine Geriatric Medicine
DX: R07.89 Other chest pain (principal); R10.2 Pelvic and perineal pain; R11.0 Nausea; E11.9 Type 2 diabetes mellitus without complications; Z79.4 Long term (current) use of insulin; Z79.899 Other long term (current) drug therapy
CPT/HCPCS: 36415; 74018; 74177; 80053; 81001; 82248; 82947; 83690; 83735; 84484; 85025; 93005; 96361; 96375; 99284; 99285; J0131; Q9967

== ENCOUNTER → 2024-12-22 12:35 | Outpatient (BNV) | payer OTHER, SELFPAY | PROVIDERS: Emergency Provider Emergency Medicine; PCP Internal Medicine Geriatric Medicine; Visit Provider Internal Medicine Cardiovascular Disease | DX: I44.0 Atrioventricular block, first degree (principal) | CPT/HCPCS: 93010 ==

== ENCOUNTER → 2024-12-22 15:35 | Outpatient (BNV) | payer OTHER, SELFPAY | PROVIDERS: Emergency Provider Emergency Medicine; PCP Internal Medicine Geriatric Medicine; Visit Provider Radiology Diagnostic Radiology | DX: G96.191 Perineural cyst (principal); K59.00 Constipation, unspecified | CPT/HCPCS: 74018; 74177 ==

== ENCOUNTER 2025-01-28 09:06 | Outpatient (REF) | payer OTHER, SELFPAY ==
--- OUTSIDE RECORDS SUMMARY | 2025-01-28 11:26 | XMS_ITS | Clinical Summary ---
Author Organization [employer] Address [address] [facility] [address] [place] [address] Care Team Providers Care Credit Department Manager Name Role Phone Name, Skip HANEY Primary Care Provider [phone] Brittney Mathias PharmD Unavailable [phone] Allergies Active Allergy Reactions Criticality Noted Date Comments Metformin Diarrhea 03/13/2018 Medications RABEprazole (Aciphex) 20 MG EC tablet Take 1 tablet by mouth 2 times daily. 023 Active docusate sodium (Colace) 100 MG capsule Take 100 mg by mouth Once daily. Active albuterol 108 (90 Base) MCG/ACT inhaler Inhale 2 puffs Every 4-6 hours as needed for wheezing or shortness of breath. 18 g 2 023 Active glucose 4 g chewable tabletIndicatio ns:Type 2 diabetes mellitus with other specified complication, unspecified whether emt intermediate insulin use ([facility]) Chew 4 tablets (16g) as needed for low blood sugars < 70 mg/dL. Recheck blood sugar after 15 mins. 20 tablet 5 024 Active Blood Pressure kit Use to check blood pressure once daily as directed 1 kit 025 Active insulin pen needle (Pentips) 32G x 4 mm miscIndications :Type 2 diabetes mellitus with other specified complication, unspecified whether mcc insulin use ([facility]) Use as instructed to inject insulin once daily 100 each 11 025 Active empagliflozin (Jardiance) 10 MGIndications:T ype 2 diabetes mellitus with other specified complication, unspecified whether emt intermediate insulin use ([facility]) Take 1 tablet (10 mg) by mouth Once per day. 30 tablet 11 025 2025 Active atorvastatin (Lipitor) 40 MG tabletIndicatio ns:Type 2 diabetes mellitus with other specified complication, unspecified whether emt intermediate insulin use ([facility]) Take 1 tablet (40 mg) by mouth Once per day. 30 tablet 2025 Active Alcohol Swabs (Alcohol Prep) 70 % padsIndications :Type 2 diabetes mellitus with other specified complication, unspecified whether mcc insulin use ([facility]) USE DIRECTED FOUR TIMES DAILY AND ONCE EVERY 2 WEEKS WITH sensor. 100 each Active TRUEplus Lancets 33G miscIndications :Type 2 diabetes mellitus with other specified complication, unspecified whether emt intermediate insulin use ([facility]) Use to test blood sugar up to 4 times daily, as directed. 100 each Active Continuous Glucose Business Technology Architect (FreeStyle Tamera 3 [place]) deviceIndicatio ns:Type 2 diabetes mellitus with other specified complication, unspecified whether mcc insulin use ([facility]) 1 each Once per day. Use as directed for CGM 1 each Active Continuous Glucose Sensor (FreeStyle Tamera 3 Plus Sensor) miscIndications :Type 2 diabetes mellitus with other specified complication, unspecified whether mcc insulin use ([facility]) Apply 1 every 15 days as directed for CGM 2 each Active glucose blood (FreeStyle Precision Jono Test) test stripIndication s:Type 2 diabetes mellitus with other specified complication, unspecified whether mcc insulin use ([facility]) Use to test blood sugar up to 4 times daily, as directed 100 each Active losartan (Cozaar) 50 MG tabletIndicatio ns:Type 2 diabetes mellitus with other specified complication, unspecified whether emt intermediate insulin use ([facility]),Essen tial hypertension Take 1 tablet (50 mg) by mouth Once per day. 90 tablet 1 Active buPROPion XL (Wellbutrin XL) 150 MG 24 hr tablet Take 150 mg by mouth in the morning. Active primidone (Mysoline) 50 MG tablet Take 2 tablets by mouth 2 times daily. Active Tirzepatide (Mounjaro) 5 MG/0.5ML solution auto-injectorIn dications:Type 2 diabetes mellitus with other specified complication, unspecified whether emt intermediate insulin use (CMS/HCC) Inject 5 mg under the skin 1 (one) time per week. 2 mL 11 025 Active insulin degludec (Tresiba FlexTouch) 200 UNIT/ML injectionIndica tions:Type 2 diabetes mellitus with other specified complication, unspecified whether emt intermediate insulin use (CMS/HCC) Inject 50 Units under the skin with evening meal. 025 Active glucagon (Baqsimi Two Pack) 3 MG/DOSE nasal powder Administer 3 mg via 1 device into the nostril for hypoglycemia with loss of consciousness. If no response after 15 minutes administer an additional dose via 2nd device into other nostril. 2 each 1 025 Active glucagon (Baqsimi Two Pack) 3 MG/DOSE nasal powder Administer 3 mg into affected nostril(s) 1 (one) time if needed for low blood sugar. 1 each 1 023 2024 Discontinued Tresiba FlexTouch 200 UNIT/ML injectionIndica tions:Type 2 diabetes mellitus with other specified complication, unspecified whether emt intermediate insulin use (CMS/HCC) INJECT 56 UNITS SUBCUTANEOUSLY EVERY DAY IN THE EVENING 9 mL 5 025 2024 Discontinued(R eorder (will not trigger notification to Pharmacy)) Active Problems Problem Noted Date Diagnosed Date Stage 3b chronic kidney disease 01/17/2023 History of tympanoplasty 05/27/2022 Overview (05/27/2022): Left side, 2018, Dr Torre Urinary incontinence 05/25/2022 Vascular insufficiency 05/25/2022 Carpal tunnel syndrome 01/20/2021 Lung nodule 01/20/2021 Overview (12/24/2024): CT Chest w/o Contrast Status: Edited Result - FINAL Study Result Narrative & Impression [address] [address] [address] Scan Report Signed Patient: Veda Matias MR#: [id number] : 1945 Acct:[id number] Age/Sex: 79 / F ADM Date: 08/02/24 Loc: HO.CT Attending Dr: Arden Cesar MD Ordering Physician: Arden Cesar MD Date of Service: 08/02/24 Procedure(s): CT chest wo IV con Accession Number(s): [id number] cc: Skip Marrero MD; Arden Cesar MD Report Number: [id number]: Total DLP = 101.00 mGy-cm CLINICAL HISTORY: [...] signed by Yakov Nguyễn MD in OV> 08/03/24 0846 Lumbar radiculopathy 01/08/2018 Primary osteoarthritis of right knee 01/08/2018 Chronic low back pain 11/03/2017 Decreased hearing 08/01/2017 Perforation of tympanic membrane 08/01/2017 Raised TSH level 08/01/2017 Constipation 05/16/2017 Essential hypertension 05/16/2017 Primary osteoarthritis of both knees 05/16/2017 Gastroesophageal reflux disease 05/01/2017 Mixed anxiety and depressive disorder 05/01/2017 Type 2 diabetes mellitus 05/01/2017 Resolved Problems Problem Noted Date Diagnosed Date Resolved Date Hip pain 07/26/2018 12/24/2024 Neck pain 07/26/2018 12/24/2024 Shoulder pain 07/26/2018 12/24/2024 Knee pain 05/16/2017 12/24/2024 Encounters Date Type Department Care Team Description 01/24/2025 Telephone [facility] [address] [place] [phone] Skip Marrero MD Call Back Request 01/21/2025 Travel 12/24/2024 9:00 AM EDT Office Visit [facility] [address] [place] [address] Skip Marrero MD Type 2 diabetes mellitus with other specified complication, unspecified whether emt intermediate insulin use ([facility]) (Primary Dx); Lower abdominal pain 12/24/2024 Travel 12/23/2024 Telephone [facility] [address] [place] [address] Linda King MA chart prep 12/22/2024 Orders Only GENERIC EXTERNAL DATA DEPARTMENT Provider, Generic External Data 12/05/2024 Travel 12/05/2024 Telephone [facility] [address] [place] [address] Skip Marrero MD Appointment Request 11/15/2024 Refill [facility] [address] [place], [place] [phone] Brittney Mathias PharmD Type 2 diabetes mellitus with other specified complication, unspecified whether mcc insulin use ([facility]) 10/30/2024 Travel from Last 3 Months Immunizations Immunization Administration Dates Next Due Hep B, adult [...] drink = 0.6 oz pur e alcohol) Depression Answer Date Recorded Patient Health Questionnaire-9 Score 1 12/24/2024 Patient Health Questionnaire-9 Score 1 12/24/2024 Last PHQ-9: Questionnaire Data Not on file 0 12/24/2024 Housing Stability Answer Date Recorded What is your housing situation today? I have kevin chan 12/24/[address] you li ve. Do you have problems with any of the following? None of the above 12/24/2024 Food Insecurity Answer Date Recorded Within the past 12 months, y ou worried that your food would run out before you got money to buy more: Sometimes True 2024 Within the past 12 months,th e food you bought just didn't last and you didn't have enough money to get more: Sometimes True 12/24/2024 Transportation Answer Date Recorded In the past 12 months, has l ack of transportation kept you from medical appts, meetings, work or from getting things needed for daily living? No 12/24/2024 Utilities Answer Date Recorded In the past 12 months, has t he electric, gas, oil or water company threatened to shut off services in your home? No 12/24/2024 Depression Answer Date Recorded Patient Health Questionnaire-2 Score 0 12/24/2024 Internet Access Answer Date Recorded Internet Access Q1 Yes 12/24/2024 Internet Access Q2 Not on file 12/24/2024 Comments Unknown Sex and Gender Information Value Date Recorded Sex Assigned at Female 03/14/2022 10:32 AM EDT Legal Sex Female 10:32 AM EDT Gender Identity Female 03/14/2022 10:32 AM EDT Sexual Orientation Straight 03/14/2022 10 :32 AM EDT Last Filed Vital Signs Vital Sign Reading Time Taken Comments Blood Pressure 130/62 01/21/2025 11:04 AM EDT Pulse 71 12/24/2024 9:13 AM EDT Temperature 36.2 C (97.2 F) 12/24/2024 9:13 AM EDT Respiratory Rate 12 12/24/2024 9:13 AM EDT Oxygen Saturation 97% 12/24/2024 9:13 AM EDT Inhaled Oxygen Concentration - - Weight 68.9 kg (151 lb 12.8 oz) 12/24/2024 9:13 AM EDT Height 157.5 cm (5' 2 ) 12/24/2024 9:13 AM EDT Body Mass Index 27.76 12/24/2024 9:13 AM EDT Plan of Treatment Upcoming Encounters Date Type Department Care Team (Late st Contact Info) Description 03/17/2025 10:30 AM EST Medication Management [facility] [address] [place] [address] Brittney Mathias, PharmD [address] [place] [address] Health Maintenance Due Date Last Done Comments Hepatitis C Screening 02/02/1963 Eye Exam 08/05/2023 08/04/2022, 07/14, 08/04/2022, Additional history exists COVID-19 Vaccine ( season) 2025 04/05/2024, 04/13/2023, 10/13/2022, Additional history exists Influenza Vaccine (#1) 2025 , 04/21/2023, 02/14/2022, Additional history exists Diabetes: Urine Protein Screening 03/25/2025 03/25/2024, 01/17/2023, 08/18/2022, Additional history exists Diabetes: Hemoglobin A1C 03/26/2025 025, 09/27/2024, 06/07/2024, Additional history exists Lipid Panel 10/24/2025 10/24/2024, 03/15, 08/18/2022, Additional history exists Alcohol/Substance Use Screening 12/24/2025 12/24/2024 Depression Screening 12/24/2025 12/24/2024, 12/25/19 25 Diabetes: Foot Exam 12/24/2025 12/24/2024, 12/24/2024, 12/24/2024, Additional history exists SDOH Screening 12/24/2025 12/24/2024 Tobacco Screening 12/24/2025 12/24/2024 DTaP/Tdap/Td Vaccines (2 - Td or Tdap) 01/24/2028 01/23/2018 Pneumococcal Vaccine: 50+ Years Completed 05/29/2019, 01/23/2018 Hepatitis B Vaccines Completed 04/13/2023, 11/10/2022, 10/13/2022 RSV Patients and Patients Aged 60 years or older Completed 04/21/2023 Zoster Vaccines Completed 06/07/2024, 03/26/2024 HIB Vaccines [...] patient's age to complete this topic Meningococcal B Vaccine Aged Out No l onger eligible based on patient's age to complete [...] Author Hemoglobin A1c < 8 Result Component 7.3( 9:15 AM EDT) No Brittney Mathias PharmD Record your blood sugar as directed Result Component On track( 023 10:52 AM EST) No Brittney Mathias PharmD Note: SMBG via CGM, ensuring sensor is scanned at least once every 8 hours. Check manual BG as needed & as directed. Procedures Procedure Name Priority Date/Time Associated Diagnosis Comments POCT GLYCATED HEMOGLOBIN, TOTAL Routine 12/24/2024 9:15 AM EDT Type 2 diabetes mellitus with other specified complication, unspecified whether mcc insulin use ([facility]) POCT GLUCOSE Routine 12/24/2024 9:14 AM EDT Type 2 diabetes mellitus with other specified complication, unspecified whether mcc insulin use ([facility]) CT ABDOMEN PELVIS W CONTRAST Routine 12/22/2024 6:42 PM EDT URINALYSIS, COMPLETE, WITH REFLEX TO CULTURE Routine 12/22/2024 4:59 PM EDT XR KUB AND UPRIGHT 2 VIEWS Routine 12/22/2024 4:34 PM EDT GLUCOSE, WHOLE BLOOD Routine 12/22/2024 3:27 PM EDT HIGH SENSITIVITY TROPONIN I Routine 12/22/2024 12:43 PM EDT LIPASE Routine 12/22/2024 12:43 PM EDT MAGNESIUM Routine 12/22/2024 12:43 PM EDT HEPATIC FUNCTION PANEL Routine 12:43 PM EDT COMPREHENSIVE METABOLIC PANEL Routine 12/22/2024 12:43 PM EDT CBC WITH AUTO DIFFERENTIAL Routine 12/22/2024 12:43 PM EDT LIPID PANEL, STANDARD Routine 10/24/2024 9:32 AM EDT ALBUMIN, RANDOM URINE W/CREATININE Routine 03/25/2024 8:40 AM EST from Last 3 Months or Most Recently Relevant to Health Maintenance Results * (ABNORMAL) POCT HGB A1C (12/24/2024 9:15 AM EDT) Pathologist [facility] Hemoglobin A1C 7.3(A) 4.0 - 5.7 % QC Media Lot # [id number] Lot# Expiration Date Blood 12/24/2024 9:15 AM EDT us Skip Marrero MD POINT OF CARE TEST ENTER/EDIT OR DERABLES Final Result * POCT Glucose (12/24/2024 9:14 AM EDT) Pathologist [facility] Glucose Blood, POC 114 60 - 200 mg/dL QC Media Lot # [id number] Lot# Expiration Date 72 Blood Capillary blood specimen / Unknown 12/24/2024 9:14 AM EDT us Skip Marrero MD POINT OF CARE TEST ENTER/EDIT OR DERABLES Final Result * CT Abdomen Pelvis w/ Contrast (12/22/2024 6:42 PM EDT) Anatomical Region Laterality Modality Body, Pelvis, Abdomen Computed T omography 12/22/2024 6:42 PM EDT Narrative 12/22/2024 6:44 PM EDT [place] [address] CT Scan Report Signed Patient: Veda Matias MR#: [id number] : 1945 Acct:[id number] Age/Sex: 79 / F ADM Date: 12/22/24 Loc: HO.ED Attending Dr: Ordering Physician: Birgit Lester Date of Service: 12/22/24 Procedure(s): CT abdomen pelvis w IV con Accession Number(s): [id number] cc: Elida,Skip HANEY; Birgit Lester Report Number: [id number]: Total DLP = 0.00 mGy-cm CLINICAL HISTORY: LLQ pain CT abdomen and pelvis with contrast Comparison: CR - XR KUB - 12/22/24 15:[address]/SR - CT CHEST WO IV CON - 08/02/24 08:39 EDT Findings: CT abdomen: Minor areas of dependent atelectasis within the lower lobes. No focal areas of consolidation. No pleural effusion or pneumothorax. No acute bony abnormality. Scattered degenerative disc disease and degenerative facet disease throughout the visualized portions of the thoracolumbar spine. 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 Air-fluid level seen within the distal esophagus with mild esophageal dilation. There is a fat containing hiatal hernia. Moderate ingested contents within the stomach. No dilated small bowel. No free fluid or free air. Gallbladder is contracted. No calcified gallstones. No focal hepatic lesions. Main portal vein is patent. Spleen, pancreas, adrenal glands, and kidneys are unremarkable for acute findings. CT pelvis: Fat containing umbilical hernia. Numerous diverticuli within the colon. No findings of diverticulitis. Scattered calcifications within the uterus suggesting degenerated fibroids. No adnexal masses. No free fluid or free air. IMPRESSION: No acute imaging explanation for the patient's symptoms. This document has been electronically signed by: Colin Doe MD on 12/22/2024 18:42:26 Dictated By: Colin Doe MD Signed By: <Electronically signed by Colin Doe MD in OV> 12/22/241842 DD/ 41 TD/TT: 12/22/241841 Sand Slinger: Procedure Note Donotuseinterpreter, Image - 12/22/[address] [place] [address] [address] Scan Report Signed Patient: Inocente Matias#: [id number] : 6Acct:[id number] Age/Sex: 79 / FADM Date: 12/22/24 Loc: HO.ED Attending Dr: Ordering Physician: Birgit Lester Date of Service: 12/22/24 Procedure(s): CT abdomen pelvis w IV con Accession Number(s): [id number] cc: Name,Skip HANEY; Birgit Lester Report Number: [id number]: Total DLP = 0.00 mGy-cm CLINICAL HISTORY: LLQ pain CT abdomen and pelvis with contrast Comparison: CR - XR KUB - 12/22/24 15:[address]/SR - CT CHEST WO IV CON - 08/02/24 08:39 EDT Findings: CT abdomen: Minor areas of dependent atelectasis within the lower lobes. No focal areas of consolidation. No pleural effusion or pneumothorax. No acute bony abnormality. Scattered degenerative disc disease and degenerative facet disease throughout the visualized portions of the thoracolumbar spine. 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 Air-fluid level seen within the distal esophagus with mild esophageal dilation. There is a fat containing hiatal hernia. Moderate ingested contents within the stomach. No dilated small bowel. No free fluid or free air. Gallbladder is contracted. No calcified gallstones. No focal hepatic lesions. Main portal vein is patent. Spleen, pancreas, adrenal glands, and kidneys are unremarkable for acute findings. CT pelvis: Fat containing umbilical hernia. Numerous diverticuli within the colon. No findings of diverticulitis. Scattered calcifications within the uterus suggesting degenerated fibroids. No adnexal masses. No free fluid or free air. IMPRESSION: No acute imaging explanation for the patient's symptoms. This document has been electronically signed by: Colin Doe MD on 12/22/2024 18:42:26 Dictated By: Colin Doe MD Signed By: <Electronically signed by Colin Doe MD in OV> 12/22/241842 DD/ 41 TD/TT: 12/22/241841 Sand Slinger: [facility] External Provider IMG CT PROCEDURES Edited Result - Final * (ABNORMAL) Urinalysis, Complete, with Reflex to Culture (12/22/2024 4:59 PM EDT) Color Urine Yellow [facility] Appearance Urine Clear [facility] PH 5.5 5.0 - 9.0 [facility] Glucose Urine UA >=1000(A) Negative mg/dL [facility] Urine Blood Negative Negative [facility] Specific [place] - Urine 1.015 1.005 - 1.025 [facility] Urine Protein Negative Neg-Trace mg/dL [facility] Urine Ketones Negative Negative mg/dL [facility] Nitrite Urine Negative Negative [facility] Leukocyte Esterase Urine Negative Negative [facility] RBC Urine 0-2 0 - 2 /HPF [facility] Urine WBC 0-5 0 - 5 /HPF [facility] Urine Squamous Epithelial Cell 0-2 0 - 2 /HPF [facility] Urine Bacteria None Seen None Seen [facility] Hyaline Casts, Urine 0-2 0 - 2 /LPF [facility] 12/22/2024 4:59 PM EDT 12/22/2024 5:08 PM EDT Narrative [facility] - 12/22/2024 5:35 PM EDT [id number], [employer] Generic External Data Provider LAB URINE ORDERAB LES Final Result [facility] [address] [place] [address] [phone] * XR KUB and Upright 2 Views (12/22/2024 4:34 PM EDT) Anatomical Region Laterality Modality Radiographic Shima ging 12/22/2024 4:34 PM EDT Narrative 12/22/2024 4:35 PM EDT [address] [address] XRay Report Signed Patient: Veda Matias MR#: [id number] : 1945 Acct:[id number] Age/Sex: 79 / F ADM Date: 12/22/24 Loc: HO.ED Attending Dr: Ordering Physician: Birgit Lester Date of Service: 12/22/24 Procedure(s): XR KUB Accession Number(s): [id number] cc: NameSkip MD; Birgit Lester CLINICAL HISTORY: LLQ abd pain, hx constipation Exam: Supine abdominal radiographs Comparison: CT/SR - CT CHEST WO IV CON - 08/02/24 08:39 EDT Findings: Air-filled loops of nondilated large and small bowel are seen throughout the abdomen and pelvis. No differential dilatation between large and small bowel is seen to suggest obstruction. Moderate stool throughout the colon. No indirect evidence for free air on this supine exam. Scattered phleboliths within the pelvis. Lung bases are clear. No acute bony abnormality. IMPRESSION: No acute findings. This document has been electronically signed by: Colin Doe MD on 12/22/2024 16:34:20 Dictated By: Colin Doe MD Signed By: <Electronically signed by Colin Doe MD in OV> 12/22/24 1635 DD/ 1634 TD/TT: 12/22/24 1634 Sand Slinger: Procedure Note Donotuseinterpreter, Image - 12/22/[address] [address] XRay Report Signed Patient: Inocente Matias#: [id number] : 6Acct:[id number] Age/Sex: 79 / FADM Date: 12/22/24 Loc: HO.ED Attending Dr: Ordering Physician: Birgit Lester Date of Service: 12/22/24 Procedure(s): XR KUB Accession Number(s): [id number] cc: Name,Skip HANEY; Birgit Lester CLINICAL HISTORY: LLQ abd pain, hx constipation Exam: Supine abdominal radiographs Comparison: CT/SR - CT CHEST WO IV CON - 08/02/24 08:39 EDT Findings: Air-filled loops of nondilated large and small bowel are seen throughout the abdomen and pelvis. No differential dilatation between large and small bowel is seen to suggest obstruction. Moderate stool throughout the colon. No indirect evidence for free air on this supine exam. Scattered phleboliths within the pelvis. Lung bases are clear. No acute bony abnormality. IMPRESSION: No acute findings. This document has been electronically signed by: Colin Doe MD on 12/22/2024 16:34:20 Dictated By: Colin Doe MD Signed By: <Electronically signed by Colin Doe MD in OV> 12/22/24 1635 DD/ 1634 TD/TT: 12/22/24 1634 Sand Slinger: [facility] External Provider IMG XR PROCEDURES Edited Result - Final * (ABNORMAL) Glucose, Whole Blood (12/22/2024 3:27 PM EDT) Glucose, Whole Blood 117(H) 60 - 115 mg/dL [facility] Comment:METER #: [id number] 12/22/2024 3:27 PM EDT 12/22/2024 3:31 PM EDT Generic External Data Provider LAB BLOOD ORDERAB LES Final Result [facility] [address] [place] [phone] * High Sensitivity Troponin I (12/22/2024 12:43 PM EDT) [facility] TROPONIN I HIGH SENSITIVITY <2.7 <3.5 - 17.0 ng/L [facility] Comment:The [place] high sens itivity Troponin-I results should beused in conjunction with other diagnostic information suchas ECG, clinical observations and information, and patientsymptoms to aid in the diagnosis of [place]. 12/22/2024 12:4 3 PM EDT 12/22/2024 12:46 PM EDT us Generic External Data Provider LAB BLOOD ORDERAB LES Final Result [facility] [address] [place] [phone] * CBC auto differential (12/22/2024 12:43 PM EDT) [facility] White Blood Count 7.1 4.8 - 10.8 X10*3/uL [facility] Red Blood Count 4.78 4.20 - 5.50 X10*6/uL [facility] Hemoglobin 14.0 12.0 - 16.0 g/dl [facility] Hematocrit 41.4 37.0 - 47.0 % [facility] Mean Corpuscular Volume 86.6 80.0 - 98.0 fL [facility] Mean Corpuscular Hemoglobin 29.3 27.0 - 33.0 pg [facility] Mean Corpuscular HGB Conc 33.8 31.0 - 35.0 g/dl [facility] Red Cell Distribution Width 12.4 11.0 - 16.0 % [facility] Platelet Count 216 160 - 400 X10*3/uL [facility] Mean Platelet Volume 9.6 9.4 - 12.3 fL [facility] Neutrophils Percent Auto 66.0 45 - 73 % [facility] Imm Gran Pct Auto 0.1 0.0 - 0.4 % [facility] Lymphocytes Percent Auto 26.6 20 - 40 % [facility] Monocytes Percent Auto 5.6 2 - 11 % [facility] Eosinophils Percent Auto 1.3 0 - 4 % [facility] Basophils Percent Auto 0.4 0 - 2 % [facility] NRBC Pct Auto 0.0 0.0 - 0.2 /100WBC [facility] Neutrophils Absolute Auto 4.7 2.0 - 8.3 x10*3/uL [facility] Imm Gran Abs Auto 0.01 0.00 - 0.03 X10*3/uL [facility] Lymphocytes Absolute Auto 1.9 1.2 - 4.9 X10*3/uL [facility] Monocytes Absolute Auto 0.4 0.1 - 1.2 X10*3/uL [facility] Eosinophils Absolute Auto 0.1 0.0 - 0.4 X10*3/uL [facility] Basophils Absolute Auto 0.0 0.0 - 0.2 X10*3/uL [facility] NRBC Abs Auto 0.000 0.0 - 0.012 X10*3/uL [facility] 12/22/2024 12:4 3 PM EDT 12/22/2024 12:46 PM EDT us Generic External Data Provider LAB BLOOD ORDERAB LES Final Result Performing Organization Address [facility] Co de Phone Number [facility] [address] [place] [phone] * Magnesium (12/22/2024 12:43 PM EDT) Magnesium 2.2 1.6 - 2.6 mg/dL [facility] 12/22/2024 12:4 3 PM EDT 12/22/2024 12:46 PM EDT us Generic External Data Provider LAB BLOOD ORDERAB LES Final Result Performing Organization Address [facility]/ZIP Co de Phone Number [facility] [address] [place] [phone] * Lipase (12/22/2024 12:43 PM EDT) Lipase 27 8 - 78 U/L [facility] 12/22/2024 12:4 3 PM EDT 12/22/2024 12:46 PM EDT Generic External Data Provider LAB BLOOD ORDERAB LES Final Result Performing Organization Address City/[facility]/ZIP Co de Phone Number [facility] [address] [place] [phone] * Hepatic Function Panel (12/22/2024 12:43 PM EDT) Pathologist [facility] Bilirubin, Direct 0.2 0.0 - 0.5 mg/dL [facility] 12/22/2024 12:4 3 PM EDT 12/22/2024 12:46 PM EDT Generic External Data Provider LAB BLOOD ORDERAB LES Final Result Performing Organization Address [facility] Co de Phone Number [facility] [address] [place] [phone] * (ABNORMAL) Comprehensive Metabolic Panel (12/22/2024 12:43 PM EDT) Pathologist [facility] Sodium 138 135 - 145 mmol/L [facility] Potassium 4.2 3.3 - 5.1 mmol/L [facility] Chloride 106 96 - 108 mmol/L [facility] Carbon Dioxide 24 22 - 29 mmol/L [facility] Anion Gap 12 12 - 20 [facility] Urea Nitrogen (BUN) 18(H) 9 - 16 mg/dL [facility] Creatinine, Serum 0.90 0.5 - 1.4 mg/dL [facility] Creatinine Clr Calc Pharmacy 48.5 [facility] Comment:Provided height and weight: 162.56 cm,67.2 kg.eGFR (calculated from the MDRD study equation) and eCrCl(calculated from the Cockcroft-Gault equation) are based ondifferent parameters and may not yield comparable results.If eCrCl result is absurd, please check patient'sheight/weight. Estimated Glomerular Filt Rate >60 [facility] Comment:Chronic Kidney Disea se: Estimated GFR < 60 mL/min/1.95g1Kryuyu Kidney Disease: Estimated GFR < 15 mL/min/1.73m2 Glucose 179(H) 60 - 115 mg/dL [facility] Calcium 8.6 8.4 - 10.2 mg/dL [facility] Bilirubin, Total 0.6 0.0 - 1.0 mg/dL [facility] Aspartate Amino Transferase 31 5 - 31 U/L [facility] Alanine Aminotransferase 26 0 - 31 U/L [facility] Total Protein 7.1 6.5 - 8.0 g/dL [facility] Albumin Level 4.3 3.5 - 5.0 g/dL [facility] Alkaline Phosphatase 83 39 - 117 U/L [facility] 12/22/2024 12:4 3 PM EDT 12/22/2024 12:46 PM EDT us Generic External Data Provider LAB BLOOD ORDERAB LES Final Result [facility] [address] [place] [phone] * Lipid Panel, Standard (10/24/2024 9:32 AM EDT) Triglycerides 84 <150 mg/dL [facility] Comment:Desirable Triglyceri de: less than 150 mg/dLBorderline High Triglyceride 150-199 mg/dLHigh Triglyceride: 200-499 mg/dLVery High Triglyceride: greater than or equal to 5OO mg/dL Cholesterol 143 <200 mg/dL [facility] Comment:Desirable Cholestero l: less than 200 mg/dLBorderline High Cholesterol: 200-239 mg/dLHigh Cholesterol: greater than 239 mg/dL LDL Cholesterol Calculated 68 <100 mg/dL [facility] Comment:Desirable LDL: less than 100 mg/dLNear Optimal/Above Optimal LDL: 110- 129 mg/dLBorderline High LDL: 130-159 mg/dLHigh LDL: 160-189 mg/dLVery High LDL: greater than or equal to 190 mg/dL HDL Cholesterol 59 >40 mg/dL [facility] Comment:Desirable HDL: great er than 40 mg/dL Note: This HDL assay may give artificially low results in patients with liver disease. 10/24/2024 9:32 AM EDT 10/24/2024 11:10 AM EDT Skip Marrero MD LAB BLOOD ORDERABLES Final Resul t Performing Organization Address [facility] Co de Phone Number [facility] [address] [place] [phone] * Albumin, Random Urine W/Creatinine (03/25/2024 8:40 AM EST) Creatinine, Urine 81.23 mg/dL [facility] Microalbumin Urine <5.0 mg/L [facility] Microalbum Creatinine Ratio Ur TNP <30 ug/mg cr [facility] Comment:Unable to calculate albumin/creatinine ratio due to lowmicroalbumin or creatinine result. 03/25/2024 8:40 AM EST 03/25/2024 11:02 AM EST us Skip Marrero MD LAB URINE ORDERABLES Final Resul t Performing Organization Address [facility] Co de Phone Number [facility] [address] [place] [phone] from Last 3 Months or Most Recently Relevant to Health Maintenance Insurance [employer] (O D-SNP) [facility] STANDARD * Guarantor: Veda Matais Account Type Relation to Patient Date of Phone Billing Address Personal/Family Self [address] [place] [address] * Guarantor: Veda Matias Account Type Relation to Patient Date of Phone Billing Address Personal/Family Self [address] [place] [address] * Guarantor: Veda Matias Account Type Relation to Patient Date of Phone Billing Address Personal/Family Self [address] [place] [address] Care Teams Credit Department Manager Relationship Specialty Start Date End Date Name, MD Skip [address] [place] [address] PCP - General Family Medicine 05/01/17 Brittney Mathias PharmD [address] [place] [address] Pharmacist Internal Medicine 07/07/22
--- OUTSIDE RECORDS SUMMARY | 2025-01-28 11:26 | XMS_ITS | Encounter Summary ---
Author Organization [employer] Address [address] [facility] 7t [place] [address] Care Team Providers Care Washhouse Worker Name Role Phone Name, Skip HANEY Primary Care Provider [phone] Brittney Mathias PharmD Unavailable [phone] Reason for Visit * Reason Comments Med Refill Encounter Details Date Type Department Care Team ([facility] st Contact Info) Description 12/04/2022 Refill [facility] [address] [place], [place] [phone] Name, MD Skip [address] [place] [address] Essential hypertension Social History Tobacco Use Types [...] Miscellaneous Notes * Telephone Encounter - Jenna Ramíreznez - 12/06/2022 9:49 AM EDT Tc from patients daughter requesting a med refill for medications enalapril 20 mg and hydrochlorothiazide [address] Marrero documented in this encounter Plan of Treatment Upcoming Encounters Date Type Department Care Team (Late st Contact Info) Description 03/17/2025 10:30 AM EST Medication Management [facility] [address] [place] [address] Brittney Mathias PharmD [address] [place] [address] documented as of this encounter Goals Goal [...] hypertension documented in this encounter Care Teams Washhouse Worker Relationship Specialty Start Date End Date Name, MD Skip [address] [place] [address] PCP - General Family Medicine 05/01/17 Brittney Mathias, PharmD [address] [place] [address] Pharmacist Internal Medicine 07/07/22 documented as of this encounter
--- OUTSIDE RECORDS SUMMARY | 2025-01-28 11:26 | XMS_ITS | Encounter Summary ---
Author Organization [employer] Address [address] [facility] 7t [place] [address] Care Team Providers Care Dispatcher Radio Name Role Phone Name, Skip HANEY Primary Care Provider [phone] Brittney Mathias PharmD Unavailable [phone] Reason for Visit * Reason Onset Date Comments Call Back Request 01/24/2025 Encounter Details Date Type Department Care Team ([facility] Contact Info) Description 01/24/2025 Telephone [facility] [address] [place], [place] [phone] Name, MD Skip [address] [place] [address] Call Back Request Social History Tobacco Use Types Packs/Day Years [...] Telephone Encounter - Brittney Mathias PharmD - 01/24/2025 2:46 PM EDT Outgoing call to patient who passed phone to daughterTed. They are enquiring if patient can come to complete fasting labm discussed in last CDTM, on Monday. formerly [facility] encouraged them to do so. No appointment or authorization is needed for labs; the orders are already placed electronically. They confirm understanding. No additional questions/concerns at this time. * Telephone Encounter - Alecia Baum - 01/24/2025 8:55 AM EDT Tc from pt requesting a call back to discuss authorization for analysis Contact pt at [phone] (icelandic) documented in this encounter Plan of Treatment Upcoming Encounters Date Type Department Care Team (Late st Contact Info) Description 03/17/2025 10:30 AM EST Medication Management [facility] [address] [place], [place] [phone] Brittney Mathias PharmD [address] [place] [address] documented as of this encounter Goals Goal Patient Goal Type Associated Problems Recent Progress Patient-Stated? Author Hemoglobin A1c < 8 Result Component 7.3( 5 9:15 AM EDT) No Brittney Mathias PharmD Record your blood sugar as directed Result Component On track( 023 10:52 AM EST) No Brittney Mathias PharmD Note: SMBG via CGM, ensuring sensor is scanned at least once every 8 hours. Check manual BG as needed & as directed. documented as of this encounter Visit Diagnoses Not on filedocumented in this encounter Additional Health Concerns Assessment Noted Time PHQ-9 Depression Total Score: 1 12/25/19 25 9:24 AM EDT documented as of this encounter Care Teams Dispatcher Radio Relationship Specialty Start Date End Date Name, MD Skip [address] [place] [address] PCP - General Family Medicine 05/01/17 Brittney Mathias PharmD [address] [place] [address] Pharmacist Internal Medicine 07/07/22 documented as of this encounter
--- OUTSIDE RECORDS SUMMARY | 2025-01-28 11:26 | XMS_ITS | Encounter Summary ---
Author Organization [employer] Address [address] [facility] [address] [place] [address] Care Team Providers Care Experimental Physicist Name Role Phone Name, Skip HANEY Primary Care Provider [phone] Brittney Mathias PharmD Unavailable Reason for Visit * Reason Comments Med Refill Encounter Details Date Type Department Care Team ([facility] Contact Info) Description 04/24/2023 Refill [facility] [address] [place] [address] Brittney Mathias, PharmD [address] [place] [address] Type 2 diabetes mellitus with other specified complication, unspecified whether buttermilk drier operator insulin use ([facility]) Social History Tobacco Use Types Packs/Day Years [...] Description 03/17/2025 10:30 AM EST Medication Management [facility] [address] [place], [place] [phone] Brittney Mathias PharmD [address] [place] [address] documented as of this encounter Goals Goal [...] mellitus with other specified complication, unspecified whether buttermilk drier operator insulin use ([facility]) documented in this encounter Care Teams Experimental Physicist Relationship Specialty Start Date End Date Name, MD Skip [address] [place] [address] PCP - General Family Medicine 05/01/17 Brittney Mathias PharmD [address] [place] [address] Pharmacist Internal Medicine 07/07/22 documented as of this encounter
--- OUTSIDE RECORDS SUMMARY | 2025-01-28 11:26 | XMS_ITS | Encounter Summary ---
Author Organization [employer] Address [address] [facility] 7[address] [place] [address] Care Team Providers Care School Business Manager Name Role Phone Name, Skip HANEY Primary Care Provider [phone] Brittney Mathias PharmD Unavailable [phone] Encounter Details Date Type Department Care Team ([facility] st Contact Info) Description 06/28/2023 Telephone [facility] [address] [place], [place] [phone] Rito Bateman MD [address] [place], [place] [phone] Social History Tobacco Use Types Packs/Day Years [...] Description 03/17/2025 10:30 AM EST Medication Management [facility] [address] [place] [address] Brittney Mathias PharmD [address] [place] [address] documented as of this encounter Goals Goal [...] on filedocumented in this encounter Care Teams School Business Manager Relationship Specialty Start Date End Date Name, MD Skip [address] [place] [address] PCP - General Family Medicine 05/01/17 Brittney Mathias PharmD [address] [place], [place] [phone] Pharmacist Internal Medicine 07/07/22 documented as of this encounter
[2025-01-28 12:29] LABS: Alanine Aminotransferase 28 U/L (0-31); Albumin Level 4.5 g/dL (3.5-5.0); Alkaline Phosphatase 74 U/L (39-117); Aspartate Amino Transferase 32 U/L (5-31); Cholesterol 133 mg/dL (<200); HDL Cholesterol 53 mg/dL (>40); Total Protein 7.3 g/dL (6.5-8.0); Triglycerides 89 mg/dL (<150)
== END 2025-01-28 09:07 | disposition home or self-care (01) ==
LOC: HO.HHCL 09:06
PROVIDERS: PCP Internal Medicine Geriatric Medicine; Visit Provider Internal Medicine Geriatric Medicine
DX: E11.69 Type 2 diabetes mellitus with other specified complication (principal)
CPT/HCPCS: 36415; 80061; 80076

== ENCOUNTER 2025-03-21 08:43 | Outpatient (AMB) | payer OTHER, SELFPAY ==
--- NOTE | 2025-03-21 08:59 | MHC.OFFVIS ---
Vital Signs 03/21/25 09:07 Height 5 ft 2 in Weight 148 lb 9.465 oz BMI 27.2 BP 147/73 H Blood Pressure Location Rt brachial Position Sitting Pulse 62 Intake Visit Reasons: Follow up medications Intake Note: Patient presents in office today in follow up of [facility]IC. CC: Patient states that she is doing well and denies having any new GI symptoms today. Area Coordinator Required: Yes Area Coordinator Language: [place]an Accompanied by: Daughter Allergies metformin Allergy (Unknown, Verified 03/21/25 09:27) Diarrhea Medication List - Last Reconciled 03/21/25 by RHYS Good albuterol sulfate 90 mcg/actuation 2 puffs inhalation 6XD PRN alcohol swabs (Alcohol Prep Pads) pad topical BID aspirin 81 mg PO DAILY atorvastatin 40 mg PO DAILY bisacodyl 10 mg (2 x 5 mg) PO BEDTIME blood sugar diagnostic (FreeStyle Lite Strips) As directed bupropion HCl XL 150 mg PO QAM clotrimazole-betamethasone 1-0.05 % 1 appl topical BID 7 days docusate sodium 100 mg PO QAM hydrochlorothiazide 25 mg PO DAILY insulin degludec (Tresiba FlexTouch U-200 insulin) 68 units subcut QPM insulin syringe-needle U-100 As directed losartan 50 mg PO DAILY miconazole nitrate 2% (Miconazole-7) 1 appful vaginal BEDTIME 7 days mirtazapine 7.5 mg PO BEDTIME polyethylene glycol 3350 (Miralax) 17 grams PO DAILY primidone 100 mg PO BID rabeprazole 20 mg PO BID sertraline 50 mg PO DAILY sodium,potassium,mag sulfates 17.5-3.13-1.6 gram (Suprep Bowel Prep Kit) DILUTE each bottle with 16oz of water; drink first bottle 5pm evening before procedure AND second bottle at 11pm; follow each bottle with at least 32 oz.of water within 1 hour after each bottle tirzepatide (Mounjaro) mg subcut HPI HPI Follow up medications: Details: Assessment & Plan (1) Delayed gastric emptying: Code(s): K30 - Functional dyspepsia Category: Medical (2) GERD (gastroesophageal reflux disease): Code(s): K21.9 - Gastro-esophageal reflux disease without esophagitis Category: Medical (3) Constipation: Code(s): K59.00 - Constipation, unspecified Category: Medical Plan [place] #Ammy Live As her symptoms continue I think we will do a trial of Reglan as she may have a problem with small bowel motility. I explained the medication how to take it and what adverse effects when necessitate discontinuance. She continues on her rabeprazole 20 mg twice a day, bisacodyl, and Colace. Return office visit in 4 weeks to evaluate her response. Medications: New metoclopramide HCl (Reglan) 5 mg PO .tidac 90 tabs 3RF K30 - Functional dyspepsia TODAY'S VISIT [place] # PFSH Medical History (Updated 03/21/25 @ 12:48 by RHYS Good) Pre-op examination Chest discomfort Dyspnea on exertion Urgency of micturition Shortness of breath Irritable bowel syndrome with diarrhea Other and unspecified hyperlipidemia Essential hypertension Type 2 diabetes mellitus with unspecified complications Surgical History History of esophagogastroduodenoscopy (EGD) History of section Family History Father No problems noted. Mother No problems noted. Social History Household Members: None Housing: Apartment Alcohol intake: former Patient Tobacco Use Status: Former Tobacco user Tobacco use type: Cigarette Years Smoked: 10 Current occupational status: disabled Sexual orientation: Straight/Heterosexual Gender identity: Female Review of Systems Const Denies fatigue, Denies fever(s), Denies night sweats, Denies poor appetite and Denies weight loss Eyes Details: glasses Reports requires corrective lenses ENT Reports Normal hearing present, Denies dental pain, Denies dysphagia, Denies hearing loss, Denies mouth pain, Denies odynophagia, Denies throat swelling, Denies tongue swelling and Reports other (Dentition adequate) Card Reports no additional complaints Resp Reports no additional complaints GI Details: Denies abdominal pain, Denies melena, Denies bloating, Denies hematochezia, Reports constipation, Denies GI cramping, Denies dysphagia, Denies excessive flatus, Denies early satiety, Reports heartburn, Denies diarrhea, Denies nausea, Denies odynophagia, Denies vomiting and Denies hematemesis Skin/Breast Denies pruritus, Denies lesions, Denies rash and Denies jaundice Neuro Reports Normal hearing present and Denies Abnormal speech present Endo Denies fatigue Aller/Immun Denies throat swelling and Denies tongue swelling Physical Exam Vital Signs: Last Vital Signs Pulse 62 03/21/25 09:07 BP 147/73 H 03/21/25 09:07 BMI result Body Mass Index 27.2 Const General: cooperative, no acute distress, well developed and well groomed Nutritional Appearance: average body habitus and well nourished Orientation/consciousness: oriented to person, oriented to place and oriented to time Limitations: language barrier HEENT Head: Yes normocephalic and Yes atraumatic Eyes General: appearance normal, both eyes and all related structures Pupils: Equal, round and reactive pupils present Neck Neck: Yes normal visual inspection and Yes no lymphadenopathy Thyroid: Thyroid normal Resp Effort & Inspection: normal respiratory effort and able to speak in complete sentences Auscultation: clear to auscultation bilaterally Cardio Rate: regular rate Rhythm: regular rhythm Heart sounds: Normal, physiologic split S2 sound present Peripheral pulses: radial pulses present and posterior tibial pulses present GI Inspection: No distended and No Abdominal panniculus present Palpation (GI): Soft to palpation, nontender, no guarding, not rigid and No hepatosplenomegaly present Percussion: Yes normal to percussion Auscultation: normal bowel sounds Rectal Exam - Female: deferred Skin General skin exam: no rashes or lesions noted, turgor normal, skin not dry, no jaundice, No spider nevi and no striae Rashes: no rashes Nails: normal Neuro General: oriented to person, oriented to place and oriented to time Cranial nerves: Yes Equal, round and reactive pupils present and Yes Normal hearing present Speech: No Abnormal speech present Extrem General: Yes normal to inspection, No clubbing, No cyanosis and No edema Psych Appearance: grossly normal and well kempt Mental Status: mental status grossly normal Speech and movement: Normal speech and movement present Affect: normal affect Attitude: cooperative Thought process: Normal thought process present and not confabulating Thought content: Normal thought content present Insight: Fair insight present (Psych) Judgement: Fair judgement present (Psych) Assessment & Plan Assessment & Plan (1) GERD (gastroesophageal reflux disease): Code(s): K21.9 - Gastro-esophageal reflux disease without esophagitis Category: Medical (2) Constipation: Code(s): K59.00 - Constipation, unspecified Category: Medical Plan [place] #Ammy Driver She continues on her rabeprazole 20 mg twice a day, bisacodyl, and Colace. As the last visit we added Reglan as she continued to struggle with GERD and constipation. Of note, she is on Ozempic which is likely a confounding factor> She did not feel that the Reglan was helping but she now feels that she is well controlled with rabeprazole twice a day. However her constipation is still serious an ongoing issue. Apparently she never got bisacodyl and it could be that this is because it she needs to buy it [id number] in his not covered. I let her know that it can be purchased relatively inexpensively but I will also try we sending it to see if this is part of the problem. Depending on how she responds when she has not medication will consider if we need to go to something like [facility]. She also complains that she was never contacted to schedule her colonoscopy. Looking over the workload, it appears that we were waiting for clearance from Cardiology. She is supposed to have a Holter monitor and then get back to us. The Holter monitor was obtained but it does not appear that she was booked for return to Cardiology. I send a message to their department to see if she is cleared for procedure. Return office visit in 4 weeks COLONOSCOPY BIOPSY Medications: Refilled bisacodyl 10 mg (2 x 5 mg) PO BEDTIME 60 tabs 6RF K59.00 - Constipation, unspecified bisacodyl 10 mg (2 x 5 mg) PO BEDTIME 60 tabs 6RF K59.00 - Constipation, unspecified rabeprazole 20 mg PO BID 60 tabs 6RF K21.9 - Gastro-esophageal reflux disease without esophagitis Discontinued peg 3350-electrolytes 236-22.74-6.74 -5.86 gram Refer to prep instructions given/ mailed to you from GI OFFICE. until fecal effluent is clear Discontinued Reason: Patient Completed Course 240 mL PO Q10M 4,000 mL 0RF metoclopramide HCl Discontinued Reason: Doctor's Order 5 mg PO TID 90 tabs 3RF K30 - Functional dyspepsia Coding Level of Care Code Est Pt Level 3 (83019) Diagnoses GERD (gastroesophageal reflux disease) K21.9 Constipation K59.00
[2025-03-21 09:07] VITALS: BP 147/73; PULSE 62; BMI 27.2
== END 2025-03-21 10:05 | disposition home or self-care (01) ==
LOC: HO.HGI 08:44
PROVIDERS: PCP Internal Medicine Geriatric Medicine; Visit Provider Nurse Practitioner
DX: K21.9 Gastro-esophageal reflux disease without esophagitis (principal); K59.00 Constipation, unspecified
CPT/HCPCS: 99213

== ENCOUNTER → 2025-03-21 08:43 | Outpatient (BNVA) | payer OTHER, SELFPAY | PROVIDERS: PCP Internal Medicine Geriatric Medicine; Visit Provider Nurse Practitioner | DX: Z01.818 Encounter for other preprocedural examination (principal); K59.04 Chronic idiopathic constipation; K21.9 Gastro-esophageal reflux disease without esophagitis; K30 Functional dyspepsia; E11.8 Type 2 diabetes mellitus with unspecified complications; R07.89 Other chest pain; Z79.899 Other long term (current) drug therapy; Z79.85 Long-term (current) use of injectable non-insulin antidiabetic drugs; Z87.891 Personal history of nicotine dependence | CPT/HCPCS: 99212 ==

== ENCOUNTER 2025-04-30 08:19 | Outpatient (AMB) | payer OTHER, SELFPAY ==
--- NOTE | 2025-04-30 08:24 | A.OFFVIS_ITS ---
Intake Visit Reasons: 6m follow up Allergies metformin Allergy (Unknown, Verified 03/21/25 09:27) Diarrhea HPI Comments Details: 80 years old woman with hypertension, insulin-dependent diabetes mellitus, anxiety, depression, and tremor. She is here for follow-up with no new complaints. She was using a cane for ambulation. [facility], [facility] Medical History (Updated 04/30/25 @ 08:33 by Marleni Guerrero MD) Pre-op examination Chest discomfort Dyspnea on exertion Urgency of micturition Shortness of breath Irritable bowel syndrome with diarrhea Other and unspecified hyperlipidemia Essential hypertension Type 2 diabetes mellitus with unspecified complications Surgical History History of esophagogastroduodenoscopy (EGD) History of section Family History Father No problems noted. Mother No problems noted. Social History Household Members: None Housing: Apartment Alcohol intake: former Patient Tobacco Use Status: Former Tobacco user Tobacco use type: Cigarette Years Smoked: 10 Current occupational status: disabled Sexual orientation: Straight/Heterosexual Gender identity: Female Review of Systems Narrative Mild difficulty walking and using a cane. Physical Exam Neuro Other: Mental Status: Alert and oriented to person, place, and time. Normal attention. Normal spontaneous speech, fluency, and comprehension. Cranial Nerves: CN II: Visual diaz full to confrontation, visual acuity intact. CN III, IV, : Pupils equal, round, reactive to light and accommodation. Extraocular movements are normal. CN V: Facial sensation is normal. CN VII: Facial movements symmetrical. CN VIII: Hearing intact to bedside conversation is normal. CN IX, X: Palate elevates symmetrically. CN XI: Shoulder shrug and head turn symmetrical. CN XII: Tongue midline without atrophy or fasciculations. Motor: Bulk and tone normal in all extremities. No significant muscle weakness in arms and legs. No drift. Reflexes: Deep tendon reflexes 1+ and symmetric. Coordination: Vjyrno-aw-ojlr and bewz-dx-gxfg testing normal. No dysmetria. Gait and Station: Cautious with a cane Extrapyramidal: Full facial expressions and blinking. No rigidity. Movements are appropriate with no tremor or abnormality. Speech: Normal; no dysarthria or tremor. Assessment & Plan Assessment & Plan (1) Tremor: Code(s): R25.1 - Tremor, unspecified Category: Medical (2) Cerebral microvascular disease: Comment: CT brain [place] [facility] [place]: Mod MVD, mild diff cerebral and cerebellar atrophy Code(s): I67.89 - Other cerebrovascular disease Category: Medical (3) Multifactorial gait disorder: Code(s): R26.89 - Other abnormalities of gait and mobility Category: Medical Plan Impression: 1. Mild bilateral hand tremor with no significant worsening since last seen. 2. Moderate chronic microvascular ischemic changes of brain including in cerebellum 3. Mild cerebral and cerebellar atrophy 4. Multifactorial gait disorder Recommendations: 1. Continue to use a cane or a walker 2. No alcohol 3. Blood pressure control 4. Baby aspirin daily 5. PRN f/u Coding Level of Care Code Est Pt Level 3 (45717) Diagnoses Tremor R25.1 Cerebral microvascular disease I67.89 Multifactorial gait disorder R26.89
--- OUTSIDE RECORDS SUMMARY | 2025-04-30 08:27 | XMS_ITS | Encounter Summary ---
Author Organization [employer] Address [address] [place] [address] Care Team Providers Care Mixer Runner Name Role Phone Name, Skip HANEY Primary Care Provider [phone] Brittney Mathias PharmD Unavailable Reason for Visit * Reason Comments Med Refill Encounter Details Date Type Department Care Team ([facility] Contact Info) Description 04/24/2023 Refill [facility] [address] [place] [address] Brittney Mathias, PharmD [address] [place] [address] Type 2 diabetes mellitus with other specified complication, unspecified whether extermination inspector insulin use ([facility]) Social History Tobacco Use Types Packs/Day Years [...] for continued use. She was seen in [facility] 04/2023 and has follow up in 06/2023. Currentdose is appropriate given renal function. Decrease to 10 mg daily if eGFR does drop below 30 but above 20 in future. documented in this encounter Plan of Treatment Upcoming Encounters Date Type Department Care Team (Late st Contact Info) Description 06/19/2025 10:30 AM EST Office Visit [facility] [address] [place] [address] Name, MD Skip [address] [place] [address] documented as of this encounter Goals Goal Patient Goal Type Associated Problems Recent Progress Patient-Stated? Author Hemoglobin A1c < 8 Result Component 6.9( 5 12:47 PM EST) No Brittney Mathias PharmD Record your blood sugar as directed Result Component On track( 023 10:52 AM EST) Brittney De La Paz PharmD Note: SMBG via CGM, ensuring sensor is scanned at least once every 8 hours. Check manual BG as needed & as directed. documented as of this encounter Visit Diagnoses Diagnosis Type 2 diabetes mellitus with other specified complication, unspecified whether extermination inspector insulin use (HCC) documented in this encounter Care Teams Mixer Runner Relationship Specialty Start Date End Date Name, MD Skip [address] [place] [address] PCP - General Family Medicine 05/01/17 Brittney Mathias, Mena [address] [place] [address] Pharmacist Internal Medicine 07/07/22 03/16/25 documented as of this encounter
--- OUTSIDE RECORDS SUMMARY | 2025-04-30 08:27 | XMS_ITS | Encounter Summary ---
Author Organization [employer] Address [address] [place] [address] Care Team Providers Care Intellectual Property Legal Assistant Name Role Phone Name, Skip HANEY Primary Care Provider [phone] Brittney Mathias PharmD Unavailable [phone] Encounter Details Date Type Department Care Team ([facility] st Contact Info) Description 06/28/2023 Telephone [facility] [address] [place], [place] [phone] Rito Bateman MD [address] [place], [place] [phone] Social History Tobacco Use Types Packs/Day Years [...] Description 06/19/2025 10:30 AM EST Office Visit [facility] [address] [place] [address] Name, MD Skip [address] [place] [address] documented as of this encounter Goals Goal Patient Goal Type Associated Problems Recent Progress Patient-Stated? Author Hemoglobin A1c < 8 Result Component 6.9( 12:47 PM EST) No Brittney Mathias, PharmD Record your blood sugar as directed Result Component On track( 023 10:52 AM EST) No Brittney Mathias, PharmD Note: SMBG via CGM, ensuring sensor is scanned at least once every 8 hours. Check manual BG as needed & as directed. documented as of this encounter Visit Diagnoses Not on filedocumented in this encounter Care Teams Intellectual Property Legal Assistant Relationship Specialty Start Date End Date Name, MD Skip [address] [place] [phone] PCP - General Family Medicine 05/01/17 Brittney Mathias, PharmD [address] [place] [address] Pharmacist Internal Medicine 07/07/22 03/16/25 documented as of this encounter
--- OUTSIDE RECORDS SUMMARY | 2025-04-30 08:29 | XMS_ITS | Encounter Summary ---
Author Organization [employer] Address [address] [facility] [address] [facility] [address] [place] [address] Care Team Providers Care Overseer Kosher Kitchen Name Role Phone Name, Skip HANEY Primary Care Provider [phone] Brittney Mathias PharmD Unavailable Reason for Visit * Reason Comments Med Refill Encounter Details Date Type Department Care Team ([facility] st Contact Info) Description 12/04/2022 Refill [facility] [address] [place], [place] [phone] Name, MD Skip [address] [place] [address] Essential hypertension Social History Tobacco Use Types [...] Description 06/19/2025 10:30 AM EST Office Visit [facility] [address] [place] [address] Name[place] [address] documented as of this encounter Goals Goal Patient Goal Type Associated Problems Recent Progress Patient-Stated? Author Hemoglobin A1c < 8 Result Component 6.9( 12:47 PM EST) No Brittney Mathias PharmD [...] hypertension documented in this encounter Care Teams Overseer Kosher Kitchen Relationship Specialty Start Date End Date [place] [address] PCP - General Family Medicine 05/01/17 [place] [address] Pharmacist Internal Medicine 07/07/22 03/16/25 documented as of this encounter
--- OUTSIDE RECORDS SUMMARY | 2025-04-30 08:29 | XMS_ITS | Clinical Summary ---
Author Organization [employer] Address [address] [facility] [address] [place] [address] Care Team Providers Care Sampling Expert Name Role Phone Name, Skip HANEY Primary Care Provider [phone] Allergies Active Allergy Reactions Criticality Noted Date Comments Metformin Diarrhea 03/13/2018 Medications RABEprazole (Aciphex) 20 MG EC tablet Take 1 tablet by mouth 2 times daily. 3 Active docusate sodium (Colace) 100 MG capsule Take 100 mg by mouth Once daily. Active albuterol 108 (90 Base) MCG/ACT inhaler Inhale 2 puffs Every 4-6 hours as needed for wheezing or shortness of breath. 18 g 2 3 Active glucose 4 g chewable tabletIndication s:Type 2 diabetes mellitus with other specified complication, unspecified whether long goods drier insulin use (HCC) Chew 4 tablets (16g) as needed for low blood sugars < 70 mg/dL. Recheck blood sugar after 15 mins. 20 tablet 5 4 Active Blood Pressure kit Use to check blood pressure once daily as directed 1 kit 5 Active insulin pen needle (Pentips) 32G x 4 mm miscIndications: Type 2 diabetes mellitus with other specified complication, unspecified whether long goods drier insulin use (HCC) Use as instructed to inject insulin once daily 100 each 11 5 Active Alcohol Swabs (Alcohol Prep) 70 % padsIndications: Type 2 diabetes mellitus with other specified complication, unspecified whether long goods drier insulin use (HCC) USE DIRECTED FOUR TIMES DAILY AND ONCE EVERY 2 WEEKS WITH sensor. 100 each 11 5 Active TRUEplus Lancets 33G miscIndications: Type 2 diabetes mellitus with other specified complication, unspecified whether long goods drier insulin use (HCC) Use to test blood sugar up to 4 times daily, as directed. 100 each 5 Active Continuous Glucose Director Of Extension Work (FreeStyle Tamera 3 [place]) deviceIndication s:Type 2 diabetes mellitus with other specified complication, unspecified whether long goods drier insulin use (HCC) 1 each Once per day. Use as directed for CGM 1 each 5 Active buPROPion XL (Wellbutrin XL) 150 MG 24 hr tablet Take 150 mg by mouth in the morning. 5 Active primidone (Mysoline) 50 MG tablet Take 2 tablets by mouth 2 times daily. 5 Active insulin degludec (Tresiba FlexTouch) 200 UNIT/ML injectionIndicat ions:Type 2 diabetes mellitus with other specified complication, unspecified whether long goods drier insulin use (HCC) Inject 56 Units under the skin with evening meal. 9 mL 3 04/03/2025 4:08 PM EST 5 Active atorvastatin (Lipitor) 40 MG tabletIndication s:Type 2 diabetes mellitus with other specified complication, unspecified whether long goods drier insulin use (HCC) Take 1 tablet (40 mg) by mouth Once per day. 90 tablet 1 5 Active Tirzepatide (Mounjaro) 5 MG/0.5ML solution auto-injectorInd ications:Type 2 diabetes mellitus with other specified complication, unspecified whether long goods drier insulin use (HCC) Inject 5 mg under the skin 1 (one) time per week. 2 mL 11 04/03/2025 4:08 PM EST 5 Active losartan (Cozaar) 50 MG tabletIndication s:Type 2 diabetes mellitus with other specified complication, unspecified whether retirement insulin use (HCC),Essential hypertension Take 1 tablet (50 mg) by mouth Once per day. 90 tablet 1 5 Active Continuous Glucose Sensor (FreeStyle Tamera 3 Plus Sensor) miscIndications: Type 2 diabetes mellitus with other specified complication, unspecified whether long goods drier insulin use (HCC) Apply 1 every 15 days as directed for CGM 2 each 04/03/2025 4:08 PM EST 5 Active glucose blood (FreeStyle Precision Jono Test) test stripIndications :Type 2 diabetes mellitus with other specified complication, unspecified whether retirement insulin use (HCC) Use to test blood sugar up to 4 times daily, as directed 100 each 11 5 Active glucagon (Baqsimi Two Pack) 3 MG/DOSE nasal powderIndication s:Type 2 diabetes mellitus with other specified complication, unspecified whether retirement insulin use (HCC) Administer 3 mg via 1 device into the nostril for hypoglycemia with loss of consciousness. If no response after 15 minutes administer an additional dose via 2nd device into other nostril. 2 each 1 5 Active Active Problems Problem Noted Date Diagnosed Date Stage 3b chronic kidney disease (CMS/HCC) 2022 History of tympanoplasty 05/27/2022 Overview (05/27/2022): Left side, 2018, Dr Torre Urinary incontinence 05/25/2022 Vascular insufficiency 05/25/2022 Carpal tunnel syndrome 01/20/2021 Lung nodule 01/20/2021 Overview (12/24/2024): CT Chest w/o Contrast Status: Edited Result - FINAL Study Result Narrative & Impression [place] [address] [address] Scan Report Signed Patient: Veda Matias MR#: [id number] : 1945 Acct:[id number] Age/Sex: 79 / F ADM Date: 08/02/24 Loc: HO.CT Attending Dr: Arden Cesar MD Ordering Physician: Arden Cesar MD Date of Service: 08/02/24 Procedure(s): CT chest wo IV con Accession Number(s): [id number] cc: Name,Skip HANEY; Arden Cesar MD Report Number: [id number]: Total DLP = 101.00 mGy-cm CLINICAL HISTORY: [...] Encounters Date Type Department Care Team Description 04/04/2025 Telephone [facility] [address] [place], [place] [phone] Linda King MA dec recalls 03/17/2025 Travel 03/06/2025 Telephone [facility] [address] [place], [place] [phone] Brittney Mathias, Mena from Last 3 Months Immunizations Immunization Administration [...] Sign Reading Time Taken Comments Blood Pressure 130/68 03/17/2025 10:54 AM EST Pulse 71 12/24/2024 9:13 AM EDT Temperature [...] Description 06/19/2025 10:30 AM EST Office Visit [facility] [address] [place], [place] [phone] Name, MD Skip [address] [place] [address] Health Maintenance Due Date Last Done Comments Hepatitis C Screening 02/02/1963 Eye Exam 08/05/2023 08/04/2022, 07/14, 08/04/2022, Additional history exists COVID-19 Vaccine ( season) 2025 04/05/2024, 04/13/2023, 10/13/2022, Additional history exists Influenza Vaccine (#1) 2025 , 04/21/2023, 02/14/2022, Additional history exists Diabetes: Urine Protein Screening 03/25/2025 03/25/2024, 01/17/2023, 08/18/2022, Additional history exists Diabetes: Hemoglobin A1C 09/14/2025 025, 12/24/2024, 09/27/2024, Additional history exists Alcohol/Substance Use Screening 12/24/2025 12/24/2024 Depression Screening 12/24/2025 12/24/2024, 12/25/19 25 Diabetes: Foot Exam 12/24/2025 12/24/2024, 12/24/2024, 12/24/2024, Additional history exists SDOH Screening 12/24/2025 12/24/2024 Tobacco Screening 12/24/2025 12/24/2024 Lipid Panel 01/28/2026 01/28/2025, 10/13, 03/25/2024, Additional history exists DTaP/Tdap/Td Vaccines (2 - [...] manual BG as needed & as directed. Help patients manage their type 2 diabetes Care Plan Help patients manage their type 2 diabetes Linda Perez MA Weekly blood pressure task Care Plan Weekly blood pressure task Linda Perez MA Help patients manage their type 2 diabetes Care Plan Help patients manage their type 2 diabetes Linda Perez MA Patient has chronic kidney disease Care Plan Patient has chronic kidney disease No Linda King MA Weekly blood pressure task Care Plan Weekly blood pressure task No Linda King MA Patient has chronic kidney disease Care Plan Patient has chronic kidney disease No Linda King MA Procedures Procedure Name Priority Date/Time Associated Diagnosis Comments POCT GLYCATED HEMOGLOBIN, TOTAL Routine 03/17/2025 12:47 PM EST Type 2 diabetes mellitus with other specified complication, unspecified whether long goods drier insulin use (HCC) LIPID PANEL, STANDARD Routine 01/28/2025 9:17 AM EDT ALBUMIN, RANDOM URINE W/CREATININE Routine 03/25/2024 8:40 AM EST from Last 3 Months or Most Recently Relevant to Health Maintenance Results * (ABNORMAL) POCT Hgb A1c (03/17/2025 12:47 PM EST) Hemoglobin A1C 6.9(A) 4.0 - 5.7 % Blood 03/17/2025 12:4 7 PM EST us Skip Name MD POINT OF CARE TEST ENTER/EDIT OR DERABLES Final Result * Lipid Panel, Standard (01/28/2025 9:17 AM EDT) Triglycerides 89 <150 mg/dL [facility] Comment:Desirable Triglyceri de: less than 150 mg/dLBorderline High Triglyceride 150-199 mg/dLHigh Triglyceride: 200-499 mg/dLVery High Triglyceride: greater than or equal to 5OO mg/dL Cholesterol 133 <200 mg/dL [facility] Comment:Desirable Cholestero l: less than 200 mg/dLBorderline High Cholesterol: 200-239 mg/dLHigh Cholesterol: greater than 239 mg/dL LDL Cholesterol Calculated 63 <100 mg/dL [facility] Comment:Desirable LDL: less than 100 mg/dLNear Optimal/Above Optimal LDL: 110- 129 mg/dLBorderline High LDL: 130-159 mg/dLHigh LDL: 160-189 mg/dLVery High LDL: greater than or equal to 190 mg/dL HDL Cholesterol 53 >40 mg/dL [facility] Comment:Desirable HDL: great er than 40 mg/dL Note: This HDL assay may give artificially low results in patients with liver disease. 01/28/2025 9:17 AM EDT 01/28/2025 11:20 AM EDT us Skip Marrero MD LAB BLOOD ORDERABLES Final Resul t Performing Organization Address City/[facility] Co de Phone Number [facility] [address] [place] [address] [phone] * Albumin, Random Urine W/Creatinine (03/25/2024 8:40 AM EST) Creatinine, Urine 81.23 mg/dL [facility] Microalbumin Urine <5.0 mg/L [facility] Microalbum Creatinine Ratio Ur TNP <30 ug/mg cr [facility] Comment:Unable to calculate albumin/creatinine ratio due to lowmicroalbumin or creatinine result. 03/25/2024 8:40 AM EST 03/25/2024 11:02 AM EST us Skip Marrero MD LAB URINE ORDERABLES Final Resul t Performing Organization Address [facility] Co de Phone Number [facility] [address] [place] [phone] from Last 3 Months or Most Recently Relevant to Health Maintenance Additional Health Concerns Active Problems Noted Date Diagnosed Date Help patients manage their type 2 diabetes 04/04 Weekly blood pressure task 04/04/2025 Help patients manage their type 2 diabetes 04/04 Patient has chronic kidney disease 04/04/2025 Weekly blood pressure task 04/04/2025 Patient has chronic kidney disease 04/04/2025 Insurance * Guarantor: Veda Matias Account Type Relation to Patient Date of Phone Billing Address Personal/Family Self 1945 [address] [place] [address] [employer] (HMO D-SNP) [facility] Care Teams Sampling Expert Relationship Specialty Start Date End Date Name, MD Skip [address] [place] [address] PCP - General Family Medicine 05/01/17
== END 2025-04-30 08:37 | disposition home or self-care (01) ==
LOC: HO.HSM 08:19
PROVIDERS: PCP Internal Medicine Geriatric Medicine; Referring Provider Internal Medicine Geriatric Medicine; Visit Provider Psychiatry & Neurology Neurology
DX: R25.1 Tremor, unspecified (principal); I67.89 Other cerebrovascular disease; R26.89 Other abnormalities of gait and mobility
CPT/HCPCS: 99213

== ENCOUNTER → 2025-04-30 08:19 | Outpatient (BNVA) | payer OTHER, SELFPAY | PROVIDERS: PCP Internal Medicine Geriatric Medicine; Referring Provider Internal Medicine Geriatric Medicine; Visit Provider Psychiatry & Neurology Neurology | DX: I67.89 Other cerebrovascular disease (principal); R26.89 Other abnormalities of gait and mobility; R25.1 Tremor, unspecified; Z79.82 Long term (current) use of aspirin; Z87.891 Personal history of nicotine dependence | CPT/HCPCS: 99212 ==